=== PATIENT | male | born 1995 | race Caucasian/White ===

== ENCOUNTER 2016-11-13 15:13 | Emergency (ER) | payer OTHER ==
--- NOTE | 2016-11-13 15:59 | ED ---
General Adult HPI - General Chief complaint: Psychiatric Symptoms Stated complaint: Psych Time Seen by Provider: 11/13/16 15:43 Source: patient, RN notes reviewed Mode of arrival: ambulatory Limitations: no limitations - History of Present Illness Initial comments: Chief complaint and history of present illness a 21-year-old male who has been in [facility] months. He was sent in by community mental health practitioner with the petition because of bizarre behavior and statements. She didn't complete the petition for admission. He states that he is depressed and suicidal thoughtsa sheet around his neck was brought to jump off a railing when the [employer] guard stopped him. Patient reports depressed because his mother probably overdosed on heroin 2 months ago and his brother overdosed on heroin 3 days ago. He states he used to do heroin and methamphetamine but he wasn't on them. He states when he was younger used to see a psychiatrist but nothing since he was an adolescent. - Related Data Home Medications Medication Instructions Recorded Confirmed No Known Home Medications [No 11/13/16 11/13/16 Known Home Medications] Allergies Allergy/AdvReac Type Severity Reaction Status Date / Time No Known Allergies Allergy Verified 11/13/16 15:19 Review of Systems ROS Statement: Those systems with pertinent positive or pertinent negative responses have been documented in the HPI. Review of systems. Patient's denying any headache or visual acuity no chest pain shortness breath GI/ problems no neuro deficits. Patient states depressed suicidal plan would be to hang himself. All systems are reviewed. Past medical problems psychiatric treatment when he was young. Surgeries right hand fifth metacarpal for punching a wall. Family history uncle has stomach cancer. Both his mother and brother reportedly overdosed on heroin in the past 3 months his brother just 3 days ago both . Surgeries as noted above right fifth metacarpal after punching a wall. Patient denies ALLERGIES to smoke cigarettes or drink alcohol socially. ROS Other: All systems not noted in ROS Statement are negative. Past Medical History Past Medical History: No Reported History History of Any Multi-Drug Resistant Organisms: None Reported Past Surgical History: Orthopedic Surgery Past Psychological History: Depression Smoking Status: Current every day smoker Past Alcohol Use History: Occasional Past Drug Use History: Heroin, Marijuana, Methamphetamine General Exam - General Exam Comments Initial Comments: General: The patient is awake and alert, in no distress, and does not appear acutely ill. Brought emergency room handcuffed by sheriff lovell. Here because of depression. Time a sheet around his neck and was trying to jump off a railing when he was stopped. Depressed because he is both in [facility] and his mother 2 months ago from heroin overdose and his brother just 3 days ago from heroin overdose. Vital signs temp 98.4 pulse 86 respiratory rate 20 pulse ox on percent room air blood pressure 113/69 Eye: Pupils are equal, round and reactive to light, extra-ocular movements are intact ; there is normal conjunctiva bilaterally. No signs of icterus. Ears, nose, mouth and throat: There are moist mucous membranes and no oral lesions. Neck: The neck is supple, there is no tenderness . Cardiovascular: There is a regular rate and rhythm. No murmur, rub or gallop is appreciated. Respiratory: Lungs are clear to auscultation, respirations are non-labored, breath sounds are equal. No wheezes, stridor, rales, or rhonchi. Gastrointestinal: Soft, non-distended, non-tender abdomen without masses or organomegaly noted. There is no rebound or guarding present. No CVA tenderness. Bowel sounds are unremarkable. Back: There is no tenderness to palpation in the midline. There is no obvious deformity. No rashes noted. Musculoskeletal: Normal ROM, no tenderness, There is no pedal edema. There is no calf tenderness or swelling. Sensation intact. Pulses equal bilaterally 2+. Neurological: CN II-XII intact, There are no obvious motor or sensory deficits. Coordination appears grossly intact. Speech is normal. Skin: The patient has been in [facility] for 3 months, skin pale. Labs to be done Psychiatric: Cooperative, states he's depressed, suicidal, plan was to hang himself with a bed sheet in [facility]. Past history of depression. Had bizarre thoughts as recorded by [facility] mental health worker at the [facility]. Limitations: no limitations Course Vital Signs 11/13/16 15:16 Temperature 98.4 F Pulse Rate 86 Respiratory 20 Rate Blood Pressure 113/69 O2 Sat by Pulse 100 Oximetry Medical Decision Making - Medical Decision Making Medical decision making the patient's white count is 4.7 hemoglobin 15 hematocrit 42.9. Potassium is 5.0. BUN 22 creatinine 1.2 with a GFR greater than 60. Glucose 90. No other irregularities noted. The patient was evaluated at bedside by a psychiatrist. She placed the patient on sertraline and has written a decertification patient be taken back to the [facility] to be treated there and with continued psychiatric counseling at the [facility]. The patient be placed on suicide watch. - Lab Data Result diagrams: 11/13/16 16:27 11/13/16 16:27 Lab Results 11/13/16 11/13/16 Range/Units 16:27 16:27 WBC 4.7 (4.0-11.0) k/uL RBC 4.83 (4.30-5.90) m/uL Hgb 15.6 (13.0-17.5) gm/dL Hct 42.9 (39.0-53.0) % MCV 88.8 (80.0-100.0) fL MCH 32.3 (25.0-35.0) pg MCHC 36.4 (31.0-37.0) g/dL RDW 12.9 (11.5-15.5) % Plt Count 142 L (150-450) k/uL Neutrophils % 63 % Lymphocytes % 24 % Monocytes % 6 % Eosinophils % 5 % Basophils % 1 % Neutrophils # 3.0 (1.3-7.7) k/uL Lymphocytes # 1.1 (1.0-4.8) k/uL Monocytes # 0.3 (0-1.0) k/uL Eosinophils # 0.2 (0-0.7) k/uL Basophils # 0.0 (0-0.2) k/uL Sodium 144 (137-145) mmol/L Potassium 5.0 (3.5-5.1) mmol/L Chloride 103 (98-107) mmol/L Carbon Dioxide 29 (22-30) mmol/L Anion Gap 12 mmol/L BUN 22 H (9-20) mg/dL Creatinine 1.23 (0.66-1.25) mg/dL Est GFR (MDRD) Af Amer >60 (>60 ml/min/1.73 sqM) Est GFR (MDRD) Non-Af >60 (>60 ml/min/1.73 sqM) Glucose 90 (74-99) mg/dL Calcium 10.0 (8.4-10.2) mg/dL Disposition Clinical Impression: Depression, major Disposition: OTHER INSTITUTION NOT DEFINED Condition: Fair Instructions: Suicide Prevention for Adults (ED), Depression (ED) Additional Instructions: To be returned to [facility]. Take medications as prescribed by the psychiatrist. Continue counseling with the [facility] mental health professional. Time of Disposition: 16:51 - Out of Hospital Transfer - Req. Specs Out of Hospital Transfer - Requested Specifics: Other Non-Acute (Patient be returned to [facility] where he can be watched. Suicide precautions)
[2016-11-13 16:31] LABS: Basophils % (A) 1 %; CH 32.8; CHCM 37.2; Eosinophils # (A) 0.2 k/uL (0-0.7); Eosinophils % (A) 5 %; HCT 42.9 % (39.0-53.0); HDW 2.94; HGB 15.6 gm/dL (13.0-17.5); Luc # (Auto) 0.09; Luc % (Auto) 2; Lymphocytes # (A) 1.1 k/uL (1.0-4.8); Lymphocytes % (A) 24 %; MCH 32.3 pg (25.0-35.0); MCHC 36.4 g/dL (31.0-37.0); MCV 88.8 fL (80.0-100.0); Monocytes # (A) 0.3 k/uL (0-1.0); Monocytes % (A) 6 %; Neutrophils % (A) 63 %; RBC 4.83 m/uL (4.30-5.90); RDW 12.9 % (11.5-15.5); WBC 4.7 k/uL (4.0-11.0); WBC (Perox) 4.53
[2016-11-13 16:40] LABS: Anion Gap 12 mmol/L; Blood Urea Nitrogen 22 mg/dL (9-20); Carbon Dioxide 29 mmol/L (22-30); Chloride 103 mmol/L (98-107); Glucose 90 mg/dL (74-99); Non-African American GFR(MDRD) >60 (>60 ml/min/1.73 sqM); Sodium 144 mmol/L (137-145)
[2016-11-13 16:58] VITALS: BP 120/70; PULSE 68; RESP 16; TEMP 97.8
--- NOTE | 2016-11-13 20:57 | CONS ---
DATE OF CONSULTATION: 11/13/2016 Mayank Mishra: Patient was seen in the emergency room. HISTORY OF PRESENT ILLNESS: Patient is 21 year-old single male who has been in half-way for the last 3 months for probation violation. Patient was sent to the emergency room by Community Mental Health practitioner with petition, stated that the patient has been suspicious, paranoia, not sleeping at night, very odd and bizarre behavior and statement. He did try to hang himself with a sheet in the half-way. Patient stated that he lost his brother with overdose of heroin just couple of days ago; however, he has been depressed, prior to this. PAST PSYCHIATRIC HISTORY: There is one previous inpatient psychiatric hospitalization when he was [age] years of age and he was hospitalized for 4 weeks at [facility]. He was diagnosed with attention deficit disorder and oppositional defiant disorder. At that time he was on Intuntuitive. He stay on it for only a couple of months. He stated that he was thinking to cut his wrist at that time but since then there is no previous suicidal attempt until he did try hang himself in the half-way. Family history of psychiatric illness: Brother overdosed on heroin. Father was alcoholic. Substance abuse history: He stated that he did try marijuana, methamphetamine, heroin, cocaine, Adderall and he was in substance abuse program at age 17. Legal problems: Multiple legal problems between breaking and entry, breaking probation. Currently he has to stay in half-way until the end of February. MENTAL STATUS EXAMINATION: Patient was wearing half-way uniform. He was very pleasant, cooperative. He gives good eye contact. He denied any current suicidal or homicide ideation. He stated that he needs to get better because he has 2 brothers and wants to live for them. He denied any auditory or visual hallucination. However, he stated that he is having some paranoia and suspicious especially it was the half-way food ( ). We discussed in detail with his compliance with [facility] treatment and patient is willing to be involved in [facility] treatment, even he did agree to start medication as he said, "Especially if what you give me would help me to sleep." IMPRESSION: Major depression with psychotic features versus bipolar disorder, depressed with psychotic feature. RECOMMENDATION: As the patient is not suicidal or homicidal, I did not see any violent or aggressive behavior for at least half an hour or more during my interview with him in the emergency room. I do not feel that he does not meet criteria for inpatient psychiatric hospitalization but I do recommend alternative treatment to be involved in [facility] counseling and medication review. He was given prescription for Seroquel 300 mg at bedtime to eliminate all the paranoia and suspicious feeling and also it will stabilize his mood.
== END 2016-11-13 16:58 | disposition other institution (70) ==
LOC: EC 15:13
DX: F32.9 Major depressive disorder, single episode, unspecified (principal); F17.200 Nicotine dependence, unspecified, uncomplicated
CPT/HCPCS: 36415; 80048; 82075; 85025; 99284

== ENCOUNTER 2019-06-06 13:00 | Inpatient (IN) | payer MEDICAID ==
[2019-06-06] MEDS ORDERED: ACETAMINOPHEN TAB 325 MG TAB PO PRN (13:21)
[2019-06-06] MEDS ORDERED: ZIPRASIDONE 20 MG VIAL IM PRN (13:21)
[2019-06-06] MEDS ORDERED: MAGNESIUM HYDROXIDE 2,400 MG/10 ML CUP PO PRN (13:21)
[2019-06-06] MEDS ORDERED: LORazepam 1 MG TAB PO PRN (13:21)
[2019-06-06] MEDS ORDERED: MAG HYDROX/AL HYDROX/SIMETH 30 ML CUP PO PRN (13:21)
[2019-06-06] MEDS ORDERED: LORazepam 2 MG/ML INJ IM PRN (13:24)
[2019-06-06] MEDS ORDERED: PALIPERIDONE IM 234 MG/1.5 ML SYG IM STA (13:27)
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
[2019-06-06] MEDS ORDERED: PALIPERIDONE IM 156 MG/ML SYG IM STA (14:34)
[2019-06-06] MEDS: NICOTINE 14MG/24HR PATCH TRANSDERM SCH ×2 (14:44→14:52)
--- NOTE | 2019-06-06 17:00 | P.PN ---
Progress Note - Text Progress Note Date: 06/06/19 Attempted to see patient in the MHU. The patient noted that he does not wish to talk to anyone at this time. He refused to answer any questions and refused to be examined.
[2019-06-06] MEDS: QUEtiapine 200 MG TAB PO SCH ×2 (21:00→21:18)
[2019-06-07 08:50] LABS: Basophils % (A) 0 %; Eosinophils # (A) 0.3 k/uL (0-0.7); Eosinophils % (A) 4 %; HCT 45.8 % (39.0-53.0); HGB 16.1 gm/dL (13.0-17.5); Lymphocytes # (A) 1.2 k/uL (1.0-4.8); Lymphocytes % (A) 16 %; MCH 31.8 pg (25.0-35.0); MCHC 35.1 g/dL (31.0-37.0); MCV 90.5 fL (80.0-100.0); Mean Platelet Volume 5.4; Monocytes # (A) 0.4 k/uL (0-1.0); Monocytes % (A) 5 %; Neutrophils # (A) 5.4 k/uL (1.3-7.7); Neutrophils % (A) 73 %; Platelet Count 199 k/uL (150-450); RBC 5.06 m/uL (4.30-5.90); RDW 12.3 % (11.5-15.5); WBC 7.4 k/uL (3.8-10.6)
[2019-06-07] MEDS: NICOTINE 14MG/24HR PATCH TRANSDERM SCH (09:07)
[2019-06-07 09:12] LABS: Albumin 4.3 g/dL (3.5-5.0); Calcium 9.8 mg/dL (8.4-10.2); Potassium 4.2 mmol/L (3.5-5.1); Total Bilirubin 0.7 mg/dL (0.2-1.3); Total Protein 6.9 g/dL (6.3-8.2)
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
[2019-06-07 18:01] LABS: Hemoglobin A1C 4.3 % (4.0-6.0)
[2019-06-07] MEDS: QUEtiapine 200 MG TAB PO SCH (22:21)
[2019-06-08] MEDS: NICOTINE 14MG/24HR PATCH TRANSDERM SCH (11:05)
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
--- NOTE | 2019-06-08 17:32 | P.CONS ---
History of Present Illness - Reason for Consult Consult date: 06/08/19 - History of Present Illness Patient is a 24-year-old male with a PMH of paranoid schizophrenia who presented to the ED after his family petitioned him due to strange behavior. The patient was admitted to the MHU for psychosis. The patient was seen in the MHU on 06/08 after he refused initial examination on 06/06. He noted no additional PMH and notes that he does not take any medications at home. He states a history of tobacco abuse which he has since quit. He denied any illicit substance use. Denied any additional complaints including chest pain, SOB, fever, chills, nausea, or vomiting. Review of Systems Pertinent positives and negatives as discussed in HPI, a complete review of systems was performed and all other systems are negative. Past Medical History Past Medical History: No Reported History History of Any Multi-Drug Resistant Organisms: None Reported Past Surgical History: Orthopedic Surgery Past Psychological History: Depression Smoking Status: Current every day smoker Past Alcohol Use History: Occasional Past Drug Use History: Heroin, Marijuana, Methamphetamine Medications and Allergies Home Medications Medication Instructions Recorded Confirmed Type Paliperidone IM [Invega Sustenna] 156 mg IM Q28D 06/06/19 06/06/19 History QUEtiapine [SEROquel] 200 mg PO HS 06/06/19 06/06/19 History Allergies Allergy/AdvReac Type Severity Reaction Status Date / Time No Known Allergies Allergy Verified 06/06/19 14:01 Physical Exam Vitals: Vital Signs Temp Pulse Resp BP 06/08/19 07:12 97.9 F 96 14 107/60 General: non toxic, no distress, appears at stated age, normal weight Derm: no unusual rashes/lesions no unusual ecchymoses, warm, dry Head: atraumatic, normocephalic, symmetric Eyes: EOMI, no lid lag, anicteric sclera, pupils equal round reactive to light ENT: Nose and ears atraumatic, no thrush, no pharyngeal erythema Neck: No thyromegaly, no cervical lymphadenopathy, trachea midline, supple Mouth: no lip lesion, mucus membranes moist Cardiovascular: S1S2 reg, no murmur, positive posterior tibial pulse bilateral, no edema, capillary refill less than 2 seconds Lungs: CTA bilateral, no rhonchi, no rales , no accessory muscle use Abdominal: soft, nontender to palpation, no guarding, no appreciable organomegaly, normal bowel sounds Ext: no gross muscle atrophy, muscle strength 5 out of 5 in all 4 extremities grossly, no contractures, Neuro: CN II-XI grossly intact, light touch intact all 4 extremities, finger to nose within normal limits, Psych: Alert, oriented, appropriate affect Results CBC & Chem 7: 06/07/19 08:20 06/07/19 08:20 Assessment and Plan Plan: DARÍO vs CKD -Obtain repeat BMP for am -Encourage PO fluid intake Low TSH -Obtain T4 and T3 levels Tobacco abuse -Advised on importance of cessation Psychosis -As per psychiatry Thank you for allowing us to participate in the care of this patient. We will follow peripherally. Do not hesitate to contact us with questions. Someone can be reached from the [facility] hospitalist group at all hours of the day at [phone].
[2019-06-08] MEDS: QUEtiapine 200 MG TAB PO SCH (21:45)
[2019-06-09 05:58] LABS: T4, Free (Free Thyroxine) 1.2 ng/dL (0.78-2.19)
[2019-06-09] MEDS: NICOTINE 14MG/24HR PATCH TRANSDERM SCH (09:05)
[2019-06-09 09:55] LABS: African American GFR (CKD) >90 (>60 ml/min/1.73 sqM); Anion Gap 9 mmol/L; Blood Urea Nitrogen 17 mg/dL (9-20); Calcium 9.3 mg/dL (8.4-10.2); Carbon Dioxide 26 mmol/L (22-30); Chloride 106 mmol/L (98-107); Glucose 124 mg/dL (74-99); Non-African American GFR(CKD) 85 (>60 ml/min/1.73 sqM); Potassium 4.1 mmol/L (3.5-5.1); Sodium 141 mmol/L (137-145)
--- NOTE | 2019-06-09 14:10 | P.PN ---
Progress Note - Text Progress Note Date: 06/09/19 Clinical Problems: Psychotic disorder most likely chronic schizophrenia with acute exacerbation, rule out bipolar illness, rule out schizoaffective disorder Interim history: I reviewed the medical record and attempted to interview the patient. Appreciate the medical consult. He was more open to talk to me that during prior contacts. He declined to come into my office for the interview. He states that he has no recollection of the events that brought him in hospital and does not understand the reason for this admission. He does not want to take Seroquel but expressed a willingness to continue with the injections of Invega. Staff reports that he appears to be responding to internal stimuli. He continues to refuse Seroquel 200 mg at bedtime. He participated in one therapeutic groups yesterday. Otherwise, he comes out of his room for meals. Mental status exam: He presented as a tall somewhat disheveled appearing male who looked his stated age. He made eye contact and appeared to attend to my attempts to engage him. He had no prominent physical abnormalities or distinguishing features. He showed psychomotor retardation but no abnormal movements. Her speech was not spontaneous. He showed poverty of speech and content speech.. His affect was blunted and He did not express suicidal or homicidal ideation. He was guarded and suspicious. He did not express ideas reference, clear paranoid ideation, magical ideation or paranoid delusional thoughts. His thinking was concrete and associations were not logical. He denied hallucinations and did not appear to be responding to internal stimuli during our encounter. Assessment: He continues to have signs and symptoms acute psychosis that have improved minimally since admission to the hospital. He is refusing oral antipsychotic medications. Awaiting the probate hearing. Plan: Continue to encourage participation in therapeutic groups and activities. Continue safety precautions. Encourage take prescribed antipsychotic medications. With his consent, administer another injection of Invega sustenna later this week. Obtain copies of the mental health progress notes and assessments. Evaluate clinical status response to treatment daily basis.
[2019-06-09] MEDS: QUEtiapine 200 MG TAB PO SCH (21:12)
[2019-06-10] MEDS: NICOTINE 14MG/24HR PATCH TRANSDERM SCH (09:34)
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
[2019-06-10] MEDS: QUEtiapine 200 MG TAB PO SCH (20:33)
[2019-06-11] MEDS: NICOTINE 14MG/24HR PATCH TRANSDERM SCH (07:59)
[2019-06-11] MEDS ORDERED: PALIPERIDONE IM 234 MG/1.5 ML SYG IM ONE (09:00)
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
[2019-06-11] MEDS: QUEtiapine 200 MG TAB PO SCH (20:28)
[2019-06-12] MEDS: NICOTINE 14MG/24HR PATCH TRANSDERM SCH (08:11)
--- NOTE | 2019-06-12 19:09 | P.PN ---
Progress Note - Text Progress Note Date: 06/12/19 IDENTIFICATION DATA: 24-year-old single male patient admitted to U involuntarily with bizarre behavior INTERVAL HISTORY: He reports feeling good. He states his medications are helping him to sleep well. He reports good appetite. He says he likes going to all his groups. No side effects from medications. MENTAL STATUS EXAMINATION: 24 year old male. Appears stated age in marginal grooming and fair hygiene. speech and thought process are goal directed. mood is reported as pretty good and affect constricted. denies current auditory hallucinations and visual hallucinations. Denies paranoid ideations. Denies suicidal and homicidal ideations. is alert and oriented x 4. insight and judgement are improving. Assessment Unspecified psychotic disorder rule out schizophrenia PLAN: Continue Seroquel 200 mg at bedtime INVEGA SUSTENNA 156 mg IM q 30 days
[2019-06-12] MEDS: QUEtiapine 200 MG TAB PO SCH (21:25)
[2019-06-13] MEDS: NICOTINE 14MG/24HR PATCH TRANSDERM SCH (08:08)
--- NOTE | 2019-06-13 17:17 | P.PN ---
Progress Note - Text Progress Note Date: 06/13/19 IDENTIFICATION DATA: 24-year-old single male patient admitted to U involuntarily with bizarre behavior INTERVAL HISTORY: He reports getting along with his peers and staff. No behavioral problems reported. He reports thinking a lot which doesnt bother him and is able to concnetrate well . He says his medications are helping him. He reports good sleep and appetite. He reports going to all his groups. No side effects from medications. MENTAL STATUS EXAMINATION: 24 year old male. Appears stated age in marginal grooming and fair hygiene. speech and thought process are goal directed. mood is reported as good and affect constricted. denies current auditory hallucinations and visual hallucinations. Denies paranoid ideations. Denies suicidal and homicidal ideations. is alert and oriented x 4. insight and judgement are improving. Assessment Unspecified psychotic disorder rule out schizophrenia PLAN: Continue Seroquel 200 mg at bedtime INVEGA SUSTENNA 156 mg IM q 30 days
[2019-06-13] MEDS: QUEtiapine 200 MG TAB PO SCH (21:24)
[2019-06-14] MEDS: NICOTINE 14MG/24HR PATCH TRANSDERM SCH (09:32)
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
[2019-06-14] MEDS ORDERED: PALIPERIDONE 6 MG TAB.ER.24 PO SCH (21:00)
[2019-06-15] MEDS: NICOTINE 14MG/24HR PATCH TRANSDERM SCH (09:22)
[2019-06-15] MEDS: PALIPERIDONE 6 MG TAB.ER.24 PO SCH (12:34)
--- NOTE | 2019-06-15 12:56 | P.PN ---
Progress Note - Text Progress Note Date: 06/15/19 Chief complaint: "I am fine " Subjective: The patient has been seen today as follow-up, chart reviewed, case discussed with the treatment team. Patient reports good sleep last night. Patient has not been going to any groups and other unit activities. Patient reports fair appetite. Patient presents some degree paranoid and guarded, but he denies feeling depressed, hopeless, or suicidal. He denies any anxiety symptoms and denies mood swings, severe agitation, or anger problems. He denies any auditory or visual hallucinations and denies paranoid ideation. Patient reports taking his medications and he denies any side affects. According to the nursing staff, the patient refused to take oral Invega, but he received 2 injections of Mauricio was last at was 156 mg was yesterday. Objective: Vitals has been reviewed. Mental status examination: Appearance: The patient appears stated age, poorly groomed and dressed, no specific features. Gait/posture: Normal gait, Normal arm swinging: No abnormal movements. Attitude and behavior: engaged, superficially cooperative, eye contact. Motor activity: Decreased psychomotor activity Speech: Normal rate, tone. Mood: Anxious Affect: Constricted Thought form: goal-directed, linear, coherent. Thought content: Non-delusional, denies suicidal thoughts, denies homicidal thoughts, denies intentions or plans. Perception: Denies any auditory or visual hallucinations Attention: No impairment. Patient was able to repeat serial 5. Orientation: Patient patient was fully oriented to time place person and situation. Insight: Patient has fair insight about his psychiatric disorder. Judgment: Patient has fair judgment about his psychiatric treatment. Assessment: Unspecified psychotic disorder. Rule out schizophrenia. Plan: Continue inpatient level of care due to need for further stabilization on medications Continue treatment of psychotic disorder provide psychiatric education regarding about his diagnosis Precautions: Continue 15 minutes check for safety. Consider medical consultation if any acute medical issues arise. Provide the patient individual, group therapy, substance use disorder counseling to give better insight and learn coping skills. Continue follow-up with the patient daily to monitor progress of psychotic symptoms. Medications: Continue Invega 6 mg by mouth daily for psychotic symptoms. As per nursing, the patient received 2 doses of Invega Sustenna with first dose was last week and 2nd dose 156 mg yesterday for psychotic symptoms Discharge patient to OUTPATIENT services upon a stabilization Prognosis: Some improvement Expected LOS: 3-5 days
[2019-06-16] MEDS: PALIPERIDONE 6 MG TAB.ER.24 PO SCH (09:10)
[2019-06-16] MEDS: NICOTINE 14MG/24HR PATCH TRANSDERM SCH (09:11)
--- NOTE | 2019-06-16 12:18 | P.PN ---
Progress Note - Text Progress Note Date: 06/16/19 Chief complaint: "I feel better today " Subjective: The patient has been seen today as follow-up, chart reviewed, case discussed with the treatment team. Patient slept about 7-8 hours last night. Patient has been going to selected groups and other unit activities. Patient reports fair appetite. Patient reports feeling stable emotionally and denies feeling depressed, hopeless, or suicidal. He denies any severe mood swings, irritable mood, or agitation. Patient presents to some degree guarded and isolated himself in the room for most of the time. The patient is compliant with his medications and denies any adverse reactions, and he is currently taking oral Invega as prescribed. Patient signed by deferral paper to continue outpatient psychiatric treatment after discharge The patient denies any manic symptoms including sustained period of time with elevated or irritable mood, impulsive or irrational behavior. The patient denies any auditory or visual hallucinations. Also the patient denies any paranoid ideation. Objective: Vitals has been reviewed. Mental status examination: Appearance: The patient appears stated age, poorly groomed and dressed, no specific features. Gait/posture: Normal gait, Normal arm swinging: No abnormal movements. Attitude and behavior: engaged, superficially cooperative, eye contact. Motor activity: Decreased psychomotor activity Speech: Normal rate, tone. Mood: Anxious Affect: Constricted Thought form: goal-directed, linear, coherent. Thought content: Non-delusional, denies suicidal thoughts, denies homicidal thoughts, denies intentions or plans. Perception: Denies any auditory or visual hallucinations Attention: No impairment. Patient was able to repeat serial 5. Orientation: Patient patient was fully oriented to time place person and situation. Insight: Patient has fair insight about his psychiatric disorder. Judgment: Patient has fair judgment about his psychiatric treatment. Assessment: Unspecified psychotic disorder. Rule out schizophrenia. Plan: Continue inpatient level of care due to need for further stabilization on medications Continue treatment of psychotic disorder provide psychiatric education regarding about his diagnosis Precautions: Continue 15 minutes check for safety. Consider medical consultation if any acute medical issues arise. Provide the patient individual, group therapy, substance use disorder counseling to give better insight and learn coping skills. Continue follow-up with the patient daily to monitor progress of psychotic symptoms. Medications: Continue Invega 6 mg by mouth daily for psychotic symptoms. As per nursing, the patient received 2 doses of Invega Sustenna with first dose was last week and 2nd dose 156 mg yesterday for psychotic symptoms Discharge patient to OUTPATIENT services upon a stabilization Prognosis: Some improvement Expected LOS: 2-3 days
[2019-06-17] MEDS: NICOTINE 14MG/24HR PATCH TRANSDERM SCH (09:03)
[2019-06-17] MEDS: PALIPERIDONE 6 MG TAB.ER.24 PO SCH (09:03)
--- NOTE | 2019-06-17 14:29 | P.PN ---
Progress Note - Text Progress Note Date: 06/17/19 Chief complaint: "I don't want to talk to anybody " Subjective: The patient has been seen today as follow-up, chart reviewed, case discussed with the treatment team. Patient refused to be evaluated and was very guarded and isolated in his room. Patient didn't attend groups today and was very limited regarding interaction with others. As per nursing report, the patient continued to take his medications and he denies side effects. Objective: Vitals has been reviewed. Mental status examination: Appearance: The patient appears stated age, poorly groomed and dressed, no specific features. Gait/posture: Normal gait, Normal arm swinging: No abnormal movements. Attitude and behavior: Not engaged, not cooperative, eye contact. Motor activity: Decreased psychomotor activity Speech: Normal rate, tone. Mood: Anxious Affect: Constricted Thought form: goal-directed, linear, coherent. Thought content: Non-delusional, denies suicidal thoughts, denies homicidal thoughts, denies intentions or plans. Patient was very isolated and guarded Perception: Denies any auditory or visual hallucinations Attention: Patient was not cooperative with assessment. Orientation: Patient was not cooperative was evaluation Insight: Patient has poor insight about his psychiatric disorder. Judgment: Patient has poor judgment about his psychiatric treatment. Assessment: Unspecified psychotic disorder. Rule out schizophrenia. Plan: Continue inpatient level of care due to need for further stabilization on medications Continue treatment of psychotic disorder provide psychiatric education regarding about his diagnosis Precautions: Continue 15 minutes check for safety. Consider medical consultation if any acute medical issues arise. Provide the patient individual, group therapy, substance use disorder counseling to give better insight and learn coping skills. Continue follow-up with the patient daily to monitor progress of psychotic symptoms. Medications: Continue Invega 6 mg by mouth daily for psychotic symptoms. As per nursing, the patient received 2 doses of Invega Sustenna with first dose was last week and 2nd dose 156 mg yesterday for psychotic symptoms Discharge patient to OUTPATIENT services upon a stabilization Prognosis: Deterioration of symptoms with more isolation, guarded, and probably paranoid. Expected LOS: 5-7 days
[2019-06-18] MEDS: PALIPERIDONE 6 MG TAB.ER.24 PO SCH (08:34)
[2019-06-18] MEDS: NICOTINE 14MG/24HR PATCH TRANSDERM SCH (08:34)
--- NOTE | 2019-06-18 13:57 | P.PN ---
Progress Note - Text Progress Note Date: 06/18/19 Chief complaint: "I am fine " Subjective: The patient has been seen today as follow-up, chart reviewed, case discussed with the treatment team. Patient reports" good" sleep last night. Patient has not been going to any groups and other unit activities. Patient reports fair appetite. And continued to be isolated and has minimal interactions with others. He presented very guarded and superficial in his answers for evaluation questions. He denies feeling depressed and he denies suicidal or homicidal ideation. He denies paranoid ideation and denies any auditory or visual hallucinations. The patient has been taking his psychiatric medication and he denies any side effects. As per unit staff, patient refused to sign deferral paper and he is scheduled for court next Friday. Objective: Vitals has been reviewed. Mental status examination: Appearance: The patient appears stated age, poorly groomed and dressed, no specific features. Gait/posture: Normal gait, Normal arm swinging: No abnormal movements. Attitude and behavior: Not engaged, not cooperative, poor eye contact. Motor activity: Decreased psychomotor activity Speech: Normal rate, tone. Mood: Anxious Affect: Constricted Thought form: Very restricted. Thought content: Paranoid, denies suicidal thoughts, denies homicidal thoughts, denies intentions or plans. Patient is very isolated and guarded Perception: Denies any auditory or visual hallucinations Attention: Patient was not cooperative with assessment. Orientation: Patient was not cooperative was evaluation Insight: Patient has poor insight about his psychiatric disorder. Judgment: Patient has poor judgment about his psychiatric treatment. Assessment: Unspecified psychotic disorder. Rule out schizophrenia. Plan: Continue inpatient level of care due to need for further stabilization on medications Continue treatment of psychotic disorder provide psychiatric education regarding about his diagnosis Precautions: Continue 15 minutes check for safety. Consider medical consultation if any acute medical issues arise. Provide the patient individual, group therapy, substance use disorder counseling to give better insight and learn coping skills. Continue follow-up with the patient daily to monitor progress of psychotic symptoms. Medications: Continue Invega 6 mg by mouth daily for psychotic symptoms. As per nursing, the patient received 2 doses of Invega Sustenna with first dose was last week and 2nd dose 156 mg Wednesday 06/13 for psychotic symptoms Discharge patient to OUTPATIENT services upon a stabilization Prognosis: Deterioration of symptoms with more isolation, guarded, and probably paranoid. Expected LOS: 5-7 days
[2019-06-19] MEDS: PALIPERIDONE 6 MG TAB.ER.24 PO SCH (09:31)
[2019-06-19] MEDS: NICOTINE 14MG/24HR PATCH TRANSDERM SCH (09:32)
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
[2019-06-20] MEDS: PALIPERIDONE 6 MG TAB.ER.24 PO SCH (09:33)
[2019-06-20] MEDS: NICOTINE 14MG/24HR PATCH TRANSDERM SCH (09:33)
--- NOTE | 2019-06-20 14:57 | P.PN ---
Progress Note - Text Interval history: The patient is found in his room he refuses to follow me to an interview room. He states he does not wish to answer any questions. Staff recorded he slept 7 hours. He does indicate that he ate breakfast and lunch. He has not yet showered and he has no intention to do so. It appears that he did comply with the invega. Mental status exam: The patient's is lying in bed he is covered with a blanket. He is a disheveled appearance eye contact is intermittent. He refuses to get up for an interview. He quickly denies having any suicidal or homicidal thoughts he denies having any auditory or visual hallucinations or any specific delusions. Obviously he is underreporting. Insight and judgment impaired. He is partially cooperative for this interaction. Plan: The patient will continue on his current psychotropic medication. We will monitor him for safety and encourage some participation in the milieu. Vital signs reviewed.
[2019-06-21] MEDS: NICOTINE 14MG/24HR PATCH TRANSDERM SCH (08:42)
[2019-06-21] MEDS: PALIPERIDONE 6 MG TAB.ER.24 PO SCH (08:43)
--- NOTE | 2019-06-21 15:51 | P.PN ---
Progress Note - Text Progress Note Date: 06/21/19 Clinical Problems: Schizoaffective disorder unspecified Interim history: I reviewed the medical record, interviewed the patient and discussed his treatment and treatment plan during team meeting. His probate hearing was postponed last week and is rescheduled for this Friday. He remains seclusive and force involvement with social activities for therapeutic groups. He began to take Invega 6 mg daily last week. He denied side effects since beginning the Maria Stein oral dose. He denied problems or concerns. He specifically denied experiencing auditory, visual or olfactory hallucinations. He denied ideas reference, thought insertion, thought broadcasting or thought control. Nursing staff denied that they have recently observed him appearing as though he were responding to internal stimuli. Mental status exam: He presented as a tall, thin 24-year-old male who set up an interest. For the interview but would not come in to my exam room. He made eye contact and appeared to attend to interview. He had a flat facial expression. He showed psychomotor retardation but no abnormal movements. His speech was not spontaneous and had decreased rate and volume. His affect was flat and unreactive. He denied suicidal ideation or wishes. He denied homicidal ideation. He did not express ideas reference, paranoid ideation or delusional thoughts. His thinking was concrete and he demonstrated such poverty of speech that I cannot fully evaluate his associations. He denied hallucinations and did not appear to be responding to internal stimuli Assessment: He is more compliant with oral psychotropic medications on admission but continues demonstrate marked negative symptoms of his chronic psychiatric illness. Plan: Completed the second clinical served. Continue psychiatric hospitalization. 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 Continue Invega 6 mg daily, encourage participation in therapeutic groups and activities as tolerated. Evaluate clinical status response to treatment daily basis.
[2019-06-22] MEDS: PALIPERIDONE 6 MG TAB.ER.24 PO SCH (09:41)
[2019-06-22] MEDS: NICOTINE 14MG/24HR PATCH TRANSDERM SCH (09:41)
--- NOTE | 2019-06-22 15:56 | P.PN ---
Progress Note - Text Progress Note Date: 06/22/19 Clinical Problems: Schizoaffective disorder unspecified Interim history: I reviewed the medical record, interviewed the patient and discussed his treatment and treatment plan during team meeting. He remains seclusive and uninvolved with social activities and therapeutic groups. He remains compliant with oral Invega 6 mg daily. He He would not get out of bed to speak with me. He specifically denied experiencing auditory, visual or olfactory hallucinations. He denied ideas reference, thought insertion, thought broadcasting or thought control. Nursing staff denied that they have recently observed him appearing as though he were responding to internal stimuli. Mental status exam: He presented as a tall, thin 24-year-old male who was minimally cooperative. He made eye contact and appeared to attend to interview. He had a flat facial expression. He showed psychomotor retardation but no abnormal movements. His speech was not spontaneous and had decreased rate and volume. His affect was flat and unreactive. He denied suicidal ideation or wishes. He denied homicidal ideation. He did not express ideas reference, paranoid ideation or delusional thoughts. His thinking was concrete and he demonstrated such poverty of speech that I cannot fully evaluate his associations. He denied hallucinations and did not appear to be responding to internal stimuli Assessment: He is compliant with oral psychotropic medications but continues demonstrate marked negative symptoms of his chronic psychiatric illness. Plan: Continue psychiatric hospitalization. 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 Continue Invega 6 mg daily, encourage participation in therapeutic groups and activities as tolerated. Evaluate clinical status response to treatment daily basis.
[2019-06-23] MEDS: PALIPERIDONE 6 MG TAB.ER.24 PO SCH (08:23)
--- NOTE | 2019-06-23 15:33 | P.PN ---
Progress Note - Text Progress Note Date: 06/23/19 Clinical Problems: Schizoaffective disorder unspecified Interim history: I reviewed the medical record, interviewed the patient and discussed his treatment and treatment plan during team meeting. He had a probate hearing today during which we requested to continue inpatient hospitalization until placement in a structured community program. As during prior encounters he would not get out of bed and participated intermittently in the interview. He remains compliant with oral Invega 6 mg daily. Mental status exam: He presented as a tall, thin 24-year-old male who was minimally cooperative. He made eye contact and appeared to attend to interview. He had a flat facial expression. He showed psychomotor retardation but no abnormal movements. His speech was not spontaneous and had decreased rate and volume. His affect was flat and unreactive. He denied suicidal ideation or wishes. He denied homicidal ideation. He did not express ideas reference, paranoid ideation or delusional thoughts. His thinking was concrete and he demonstrated such poverty of speech that I cannot fully evaluate his associations. He denied hallucinations and did not appear to be responding to internal stimuli Assessment: He is compliant with oral psychotropic medications but continues demonstrate marked negative symptoms of his chronic psychiatric illness. Plan: Continue psychiatric hospitalization. 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 Continue Invega 6 mg daily, encourage participation in therapeutic groups and activities as tolerated. Evaluate clinical status response to treatment daily basis.
[2019-06-24] MEDS: PALIPERIDONE 6 MG TAB.ER.24 PO SCH (08:55)
--- NOTE | 2019-06-24 12:53 | P.PN ---
Progress Note - Text Progress Note Date: 06/24/19 Clinical Problems: Schizoaffective disorder unspecified Interim history: I reviewed the medical record, interviewed the patient and discussed his treatment and treatment plan during team meeting. He was laying in bed and wouldn't get out of bed for the interview. He told me that he didn't want to talk to me. I explained that our plan is to discharge him as soon as we mental health is able to secure a residence. He appeared attentive and interested. He remains compliant with oral Invega 6 mg daily. Mental status exam: He presented as a tall, thin 24-year-old male who was minimally cooperative. He made eye contact and appeared to attend to interview. He had a flat facial expression. He showed psychomotor retardation but no abnormal movements. His speech was not spontaneous and had decreased rate and volume. His affect was flat and unreactive. He did not express reid icidal ideations, wishes or homicidal ideation. He did not express ideas reference, paranoid ideation or delusional thoughts. His thinking was concrete and he demonstrated such poverty of speech that I cannot fully evaluate his associations. He denied hallucinations and did not appear to be responding to internal stimuli Assessment: He is compliant with oral psychotropic medications but continues demonstrate marked negative symptoms of his chronic psychiatric illness. Plan: Continue psychiatric hospitalization. 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 Continue Invega 6 mg daily, encourage participation in therapeutic groups and activities as tolerated. Evaluate clinical status response to treatment daily basis.
[2019-06-25] MEDS: PALIPERIDONE 6 MG TAB.ER.24 PO SCH (07:53)
[2019-06-25 14:14] VITALS: BMI 23.5
--- NOTE | 2019-06-25 14:56 | P.PN ---
Progress Note - Text Progress Note Date: 06/25/19 Clinical Problems: Schizoaffective disorder unspecified Interim history: I reviewed the medical record, interviewed the patient and discussed his treatment and treatment plan during team meeting. He was laying in bed but sat up and spoke with me. However, he would not come into my office. Unlike yesterday he let me to turn the lights on in his room. I informed him that [facility] may have found a residence for him and he may be discharged Friday or Friday. He remains compliant with oral Invega 6 mg daily. Mental status exam: He presented as a tall, thin 24-year-old male who was minimally cooperative. He made eye contact and appeared to attend to intervi ew. He had a flat facial expression. He showed psychomotor retardation but no abnormal movements. His speech was not spontaneous and had decreased rate and volume. His affect was flat and unreactive. He did not express suicidal ideations, wishes or homicidal ideation. He was guarded and suspicious but did not express ideas reference, paranoid ideation or delusional thoughts. His thinking was concrete and he demonstrated such poverty of speech that I cannot fully evaluate his associations. He denied hallucinations and did not appear to be responding to internal stimuli Assessment: He is compliant with oral psychotropic medications but continues demonstrate marked negative symptoms of his chronic psychiatric illness. Plan: Continue psychiatric hospitalization. 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 Continue Invega 6 mg daily, encourage participation in therapeutic groups and activities as tolerated. Evaluate clinical status response to treatment daily basis.
[2019-06-26] MEDS: PALIPERIDONE 6 MG TAB.ER.24 PO SCH (08:41)
--- NOTE | 2019-06-26 11:28 | P.PN ---
Progress Note - Text Progress Note Date: 06/26/19 Interval history: Patient was seen wandering the hallways and was agreeable speak to staff writer. Patient appears to have disheveled appearance however was calm and appropriate during conversation. Patient was concrete in his thought process and gave few details. He denies any complaints at this time claimed that he slept well last night approximately 8 hours. He states that he isn't taking his medications and when asked what it helps him with the states "you know my mental illness". Patient claims that he's been eating well and has not been attending groups. At this time patient denies any suicidal or homicidal ideations intent or plan. Denies any Auditory or visual hallucinations. Patient denies any side effects from the medications and has been compliant with meds. Mental status exam: General Appearance: Patient appears to be older than stated age is alert, and directable. Poor hygiene and grooming. Behavior: No agitated behavior. Patient is calm and directable Speech: Patient's speech is fluent and nonpressured. Soft tone. Mood/Affect: Mood is improving, affect is congruent and constricted. Suicidality/Homicidality: Patient denies having any suicidal or homicidal ideation intent or plan. Perceptions: Patient denies any auditory or visual hallucinations. Though content/process: There is no evidence of any delusional thought content and thought process is concrete and guarded. Memory and concentration: AOX3, grossly intact for the purposes of this session Judgment and insight: improving Assessment/Plan: Continue with current diagnosis. Patient continues to meet criteria for inpatient psychiatric admission for symptom stabilization and safety.Patient will be maintained on current psychotropic medication regimen. Monitor for medication compliance and for any psychotropic medication side effects. Will continue to monitor ongoing response to treatment.
[2019-06-27] MEDS: PALIPERIDONE 6 MG TAB.ER.24 PO SCH (09:14)
--- NOTE | 2019-06-27 12:04 | P.PN ---
Progress Note - Text Progress Note Date: 06/27/19 Interval history: Patient was seen in his room and was agreeable speak to greeting card writer. Patient did not want to get out of bed this morning however does state that he comes out of his room from time to time. Patient appears to have disheveled appearance however did state that he has been showering. Patient was encouraged to shower today in the afternoon. Patient was appropriate during conversation. Patient was concrete in his thought process and gave few details however offered no overnight complaints. He states that he slept well last night approximately 7-8 hours. He states that he is taking his medications and states that it is helping him however gives superficial answers. Patient claims that he's been eating well and has not been attending groups. At this time patient denies any suicidal or homicidal ideations intent or plan. Denies any Auditory or visual hallucinations. Patient denies any side effects from the medications and has been compliant with meds. Mental status exam: General Appearance: Patient appears to be older than stated age is alert, and directable. Poor hygiene and grooming. Behavior: No agitated behavior. Patient is calm and directable Speech: Patient's speech is fluent and nonpressured. Mood/Affect: Mood is improving, affect is congruent and constricted. Suicidality/Homicidality: Patient denies having any suicidal or homicidal ideation intent or plan. Perceptions: Patient denies any auditory or visual hallucinations. Though content/process: There is no evidence of any delusional thought content and thought process is concrete and guarded. Memory and concentration: AOX3, grossly intact for the purposes of this session Judgment and insight: improving Assessment/Plan: Continue with current diagnosis. Patient continues to meet criteria for inpatient psychiatric admission for symptom stabilization and safety. Patient will be maintained on current psychotropic medication regimen. Monitor for medication compliance and for any psychotropic medication side effects. Will continue to monitor ongoing response to treatment.
[2019-06-28 07:07] VITALS: RESP 14
[2019-06-28] MEDS: PALIPERIDONE 6 MG TAB.ER.24 PO SCH (08:17)
--- NOTE | 2019-06-28 15:10 | P.PN ---
Progress Note - Text Progress Note Date: 06/28/19 Chief complaint: "I don't want to talk to anybody today " Subjective: The patient has been seen today as follow-up, chart reviewed, case discussed with the treatment team. Patient was very superficial and minimally cooperative reports that he is feeling fine and he doesn't need to talk to anybody today. He denies feeling hopeless or suicidal and denies any hallucinations. He denies any paranoid ideation or delusions but he presented guarded and was isolating himself in his room. Patient has been taking his medications and he denies any side effect. Patient is not going to groups and minimally interacting with other peers in the unit. As per unit staff, the plan for the patient to be discharged to snf with structured environment. The patient had a probate court order for treatment. Objective: Vitals has been reviewed. Mental status examination: Appearance: The patient appears stated age, fairly groomed and dressed, no specific features. Gait/posture: Normal gait, Normal arm swinging: No abnormal movements. Attitude and behavior: Not engaged, not cooperative, poor eye contact. Motor activity: Decreased psychomotor activity Speech: Normal rate, tone. Mood: Anxious Affect: Restricted range Thought form: Very restricted thoughts. Thought content: Paranoid, denies suicidal thoughts, denies homicidal thoughts, denies intentions or plans. Patient is very isolated and guarded Perception: Denies any auditory or visual hallucinations Attention: No major impairment. Orientation: Patient is oriented to time, person, place, and situation. Insight: Patient has limited insight about his psychiatric disorder. Judgment: Patient has limited judgment about his psychiatric treatment. Assessment: Schizophrenia. Plan: Continue inpatient level of care due to need for further stabilization on medications Continue treatment of psychotic disorder provide psychiatric education regarding about his diagnosis Precautions: Continue 15 minutes check for safety. Consider medical consultation if any acute medical issues arise. Provide the patient individual, group therapy, substance use disorder counseling to give better insight and learn coping skills. Continue follow-up with the patient daily to monitor progress of psychotic symptoms. Medications: Continue Invega 6 mg by mouth daily for psychotic symptoms. As per nursing, the patient received 2 doses of Invega Sustenna with first dose was last week and 2nd dose 156 mg Wednesday 06/13 for psychotic symptoms Discharge patient to OUTPATIENT services upon a stabilization Prognosis: Deterioration of symptoms with more isolation, guarded, and probably paranoid. Expected LOS: 2-3 days
[2019-06-29 06:30] VITALS: TEMP 97.7
[2019-06-29] MEDS: PALIPERIDONE 6 MG TAB.ER.24 PO SCH (09:16)
--- NOTE | 2019-06-29 11:48 | P.PN ---
Progress Note - Text Progress Note Date: 06/29/19 Chief complaint: "I'm feeling okay, and I don't want to talk" Subjective: The patient has been seen today as follow-up, chart reviewed, case discussed with the treatment team. Patient slept about 6 hours last night. Patient has not been going to any groups and other unit activities. No report of appetite problems, and patient finishes most of his meals. Patient was very superficial and minimally cooperative, but he denies feeling hopeless or suicidal. He denies any severe agitation or homicidal ideation. He denies any paranoid thoughts, but he apparently was guarded and isolative. He denies any auditory or visual hallucinations. Discussed with the treatment team that patient will be discharged to structured home group. The patient is compliant with his medications and denies any adverse reactions. No reports of any manic or severe psychotic symptoms. Objective: Vitals has been reviewed. Mental status examination: Appearance: The patient appears stated age, fairly groomed and dressed, no specific features. Gait/posture: Normal gait, Normal arm swinging: No abnormal movements. Attitude and behavior: Not engaged, not cooperative, poor eye contact. Motor activity: Normal psychomotor activity Speech: Normal rate, tone. Mood: "Fine" Affect: Restricted range Thought form: Very restricted thoughts. Thought content: Denies paranoid ideation, denies suicidal thoughts, denies homicidal thoughts, denies intentions or plans. Patient is very isolated and guarded Perception: Denies any auditory or visual hallucinations Attention: No major impairment. Orientation: Patient is oriented to time, person, place, and situation. Insight: Patient has limited insight about his psychiatric disorder. Judgment: Patient has limited judgment about his psychiatric treatment. Assessment: Schizophrenia. Plan: Continue inpatient level of care due to need for further stabilization on medications Continue treatment of psychotic disorder provide psychiatric education regarding about his diagnosis Precautions: Continue 15 minutes check for safety. Consider medical consultation if any acute medical issues arise. Provide the patient individual, group therapy, substance use disorder counseling to give better insight and learn coping skills. Continue follow-up with the patient daily to monitor progress of psychotic symptoms. Medications: Continue Invega 6 mg by mouth daily for psychotic symptoms. As per nursing, the patient received 2 doses of Invega Sustenna with first dose was last week and 2nd dose 156 mg Wednesday 06/13 for psychotic symptoms Discharge patient to OUTPATIENT services upon a stabilization Prognosis: Stable psychiatric symptoms Expected LOS: 1-2 days
[2019-06-30 06:28] VITALS: BP 107/56; PULSE 67
[2019-06-30] MEDS: PALIPERIDONE 6 MG TAB.ER.24 PO SCH (08:28)
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
== END 2019-06-30 17:21 | disposition home or self-care (01) | DRG 885 ==
LOC: 3MHU 13:00
PROVIDERS: ADMIT Psychiatry & Neurology Psychiatry; ATTEND Psychiatry & Neurology Psychiatry
DX: F20.0 Paranoid schizophrenia (principal); N17.9 Acute kidney failure, unspecified; F17.210 Nicotine dependence, cigarettes, uncomplicated; Z79.899 Other long term (current) drug therapy; Z91.5 Personal history of self-harm; Z81.8 Family history of other mental and behavioral disorders; Z81.1 Family history of alcohol abuse and dependence; F90.9 Attention-deficit hyperactivity disorder, unspecified type; N18.9 Chronic kidney disease, unspecified; F11.11 Opioid abuse, in remission; F12.11 Cannabis abuse, in remission; F15.11 Other stimulant abuse, in remission; T43.96XA Underdosing of unspecified psychotropic drug, initial encounter; Z91.128 Patient's intentional underdosing of medication regimen for other reason
CPT/HCPCS: 80048; 80053; 80061; 83036; 84436; 84439; 84443; 84481; 85025

== ENCOUNTER 2019-08-25 10:54 | Inpatient (IN) | payer MEDICAID, OTHER ==
[2019-08-25] MEDS ORDERED: SODIUM CHLORIDE 0.9% 1,000 ML IV ONE (11:01)
--- NOTE | 2019-08-25 11:42 | ED ---
Overdose HPI - General Chief Complaint: Overdose Stated Complaint: drug ingestion Time Seen by Provider: 08/25/19 10:54 Source: patient, EMS, RN notes reviewed Mode of arrival: EMS Limitations: no limitations - History of Present Illness Initial Comments: This a 24-year-old male presents emergency Department via EMS from adult foster home for possible drug overdose. Patient reportedly was found with multiple packets of Coricidin. Patient states he only took 2 or 3 for headache but there was 72 missing and reportedly this was brought last night. Patient states that is about multiple packets over the last couple weeks. He denies being suicidal or homicidal and eyes any illicit drug use though he does admit to previous history. Patient has no specific complaints at this time patient is brought in from via EMS with police. Patient is petition at this time. - Related Data Home Medications Medication Instructions Recorded Confirmed Paliperidone [Invega] 6 mg PO HS 08/25/19 08/25/19 Previous Rx's Medication Instructions Recorded Paliperidone IM [Invega Sustenna] 156 mg IM Q28D #1 ml 06/30/19 Allergies Allergy/AdvReac Type Severity Reaction Status Date / Time No Known Allergies Allergy Verified 08/25/19 11:38 Review of Systems ROS Statement: Those systems with pertinent positive or pertinent negative responses have been documented in the HPI. ROS Other: All systems not noted in ROS Statement are negative. Past Medical History Past Medical History: No Reported History History of Any Multi-Drug Resistant Organisms: None Reported Past Surgical History: Orthopedic Surgery Past Psychological History: Depression Smoking Status: Current every day smoker Past Alcohol Use History: Occasional Past Drug Use History: Heroin, Marijuana, Methamphetamine General Exam Limitations: no limitations General appearance: alert, in no apparent distress Head exam: Present: atraumatic, normocephalic, normal inspection Eye exam: Present: normal appearance, PERRL, EOMI. Absent: scleral icterus, conjunctival injection, periorbital swelling ENT exam: Present: normal exam, normal oropharynx, mucous membranes moist, TM's normal bilaterally Neck exam: Present: normal inspection, full ROM. Absent: tenderness, mening ismus, lymphadenopathy Respiratory exam: Present: normal lung sounds bilaterally. Absent: respiratory distress, wheezes, rales, rhonchi, stridor Cardiovascular Exam: Present: regular rate, normal rhythm, normal heart sounds. Absent: systolic murmur, diastolic murmur, rubs, gallop, clicks GI/Abdominal exam: Present: soft, normal bowel sounds. Absent: distended, tenderness, guarding, rebound, rigid Neurological exam: Present: alert, oriented X3, CN II-XII intact, reflexes normal. Absent: motor sensory deficit Psychiatric exam: Present: normal affect, normal mood Skin exam: Present: warm, dry, intact, normal color. Absent: rash Course Vital Signs 08/25/19 08/25/19 08/25/19 10:59 13:27 14:06 Temperature 98.0 F Pulse Rate 95 92 83 Respiratory 16 16 16 Rate Blood Pressure 141/90 113/72 107/64 O2 Sat by Pulse 99 98 97 Oximetry 08/25/19 16:00 Temperature 98.3 F Pulse Rate 94 Respiratory 18 Rate Blood Pressure 128/80 O2 Sat by Pulse 99 Oximetry Medical Decision Making - Medical Decision Making Patient was medically cleared, poison control was contacted recommend supportive treatment. Labs are unremarkable. Patient by [facility] and EPS recommend inpatient treatment - Lab Data Result diagrams: 08/25/19 11:25 Lab Results 08/25/19 08/25/19 Range/Units 11:25 11:25 Sodium 142 (137-145) mmol/L Potassium 4.1 (3.5-5.1) mmol/L Chloride 105 (98-107) mmol/L Carbon Dioxide 28 (22-30) mmol/L Anion Gap 9 mmol/L BUN 15 (9-20) mg/dL Creatinine 1.24 (0.66-1.25) mg/dL Est GFR (CKD-EPI)AfAm >90 (>60 ml/min/1.73 sqM) Est GFR (CKD-EPI)NonAf 82 (>60 ml/min/1.73 sqM) Glucose 75 (74-99) mg/dL Calcium 9.9 (8.4-10.2) mg/dL Total Bilirubin 0.7 (0.2-1.3) mg/dL AST 23 (17-59) U/L ALT 9 (4-49) U/L Alkaline Phosphatase 52 (38-126) U/L Total Protein 7.6 (6.3-8.2) g/dL Albumin 4.9 (3.5-5.0) g/dL Urine Color Yellow Urine Appearance Clear (Clear) Urine pH 6.5 (5.0-8.0) Ur Specific [place] 1.020 (1.001-1.035) Urine Protein Negative (Negative) Urine Glucose (UA) Negative (Negative) Urine Ketones Negative (Negative) Urine Blood Negative (Negative) Urine Nitrite Negative (Negative) Urine Bilirubin Negative (Negative) Urine Urobilinogen <2.0 (<2.0) mg/dL Ur Leukocyte Esterase Negative (Negative) Salicylates <1.0 mg/dL Urine Opiates Screen Not Detected (NotDetected) Ur Oxycodone Screen Not Detected (NotDetected) Urine Methadone Screen Not Detected (NotDetected) Ur Propoxyphene Screen Not Detected (NotDetected) Acetaminophen <10.0 ug/mL Ur Barbiturates Screen Not Detected (NotDetected) U Tricyclic Antidepress Not Detected (NotDetected) Ur Phencyclidine Scrn Not Detected (NotDetected) Ur Amphetamines Screen Not Detected (NotDetected) U Methamphetamines Scrn Not Detected (NotDetected) U Benzodiazepines Scrn Not Detected (NotDetected) Urine Cocaine Screen Not Detected (NotDetected) U Marijuana (THC) Screen Not Detected (NotDetected) Disposition Clinical Impression: Drug overdose, intentional, Depression Disposition: TRANSFER TO PSYCH HOSP/UNIT Condition: Fair Referrals: Albert Delgado DO [Primary Care Provider] - 1-2 days
[2019-08-25 11:51] LABS: Appearance,Urine Clear (Clear); Bilirubin,Urine Negative (Negative); Blood,Urine Negative (Negative); Color,Urine Yellow; Glucose,Urine (UA) Negative (Negative); Ketones,Urine Negative (Negative); Leukocyte Esterase,Urine Negative (Negative); Nitrite,Urine Negative (Negative); PH, Urine 6.5 (5.0-8.0); Protein,Urine Negative (Negative); Urobilinogen,Urine <2.0 mg/dL (<2.0)
[2019-08-25 11:53] LABS: ALT 9 U/L (4-49); AST 23 U/L (17-59); Acetaminophen <10.0 ug/mL; African American GFR (CKD) >90 (>60 ml/min/1.73 sqM); Albumin 4.9 g/dL (3.5-5.0); Alkaline Phosphatase 52 U/L (38-126); Anion Gap 9 mmol/L; Blood Urea Nitrogen 15 mg/dL (9-20); Calcium 9.9 mg/dL (8.4-10.2); Carbon Dioxide 28 mmol/L (22-30); Chloride 105 mmol/L (98-107); Glucose 75 mg/dL (74-99); Non-African American GFR(CKD) 82 (>60 ml/min/1.73 sqM); Potassium 4.1 mmol/L (3.5-5.1); Salicylate <1.0 mg/dL; Sodium 142 mmol/L (137-145); Total Bilirubin 0.7 mg/dL (0.2-1.3); Total Protein 7.6 g/dL (6.3-8.2)
[2019-08-25 12:05] LABS: Amphetamine Screen,Urine Not Detected (NotDetected); Barbiturate Screen,Urine Not Detected (NotDetected); Benzodiazepines Screen,Urine Not Detected (NotDetected); Cocaine Screen,Urine Not Detected (NotDetected); Methadone Screen, Urine Not Detected (NotDetected); Opiate Screen,Urine Not Detected (NotDetected); Oxycodone Screen, Urine Not Detected (NotDetected); Phencyclidine Screen,Urine Not Detected (NotDetected); Tricyclic Antidepressant,Urine Not Detected (NotDetected); Urn Cannabinoid Scrn Not Detected (NotDetected)
[2019-08-25] MEDS ORDERED: LORazepam 1 MG TAB PO PRN (17:24)
[2019-08-25] MEDS ORDERED: ACETAMINOPHEN TAB 325 MG TAB PO PRN (17:24)
[2019-08-25] MEDS ORDERED: ZIPRASIDONE 20 MG VIAL IM PRN (17:24)
[2019-08-25] MEDS ORDERED: MAGNESIUM HYDROXIDE 2,400 MG/10 ML CUP PO PRN (17:24)
[2019-08-25] MEDS ORDERED: MAG HYDROX/AL HYDROX/SIMETH 30 ML CUP PO PRN (17:24)
[2019-08-25] MEDS: PALIPERIDONE 6 MG TAB.ER.24 PO SCH (20:40)
[2019-08-26 09:01] LABS: Basophils % (A) 1 %; Eosinophils # (A) 0.5 k/uL (0-0.7); Eosinophils % (A) 8 %; HCT 47.8 % (39.0-53.0); HGB 16.8 gm/dL (13.0-17.5); Lymphocytes # (A) 1.3 k/uL (1.0-4.8); Lymphocytes % (A) 22 %; MCH 31.9 pg (25.0-35.0); MCHC 35.1 g/dL (31.0-37.0); Mean Platelet Volume 6.8; Monocytes # (A) 0.4 k/uL (0-1.0); Monocytes % (A) 6 %; Neutrophils # (A) 3.8 k/uL (1.3-7.7); Neutrophils % (A) 61 %; Platelet Count 172 k/uL (150-450); RBC 5.26 m/uL (4.30-5.90); RDW 11.7 % (11.5-15.5); WBC 6.2 k/uL (3.8-10.6)
[2019-08-26 09:27] LABS: ALT 8 U/L (4-49); AST 19 U/L (17-59); African American GFR (CKD) >90 (>60 ml/min/1.73 sqM); Albumin 4.4 g/dL (3.5-5.0); Alkaline Phosphatase 50 U/L (38-126); Anion Gap 7 mmol/L; Blood Urea Nitrogen 17 mg/dL (9-20); Calcium 9.6 mg/dL (8.4-10.2); Carbon Dioxide 26 mmol/L (22-30); Chloride 106 mmol/L (98-107); Cholesterol 156 mg/dL (<200); Glucose 87 mg/dL (74-99); HDL Cholesterol 42 mg/dL (40-60); LDL Cholesterol,Calculated 78 mg/dL (0-99); Non-African American GFR(CKD) 83 (>60 ml/min/1.73 sqM); Potassium 4.2 mmol/L (3.5-5.1); Sodium 139 mmol/L (137-145); Total Bilirubin 0.8 mg/dL (0.2-1.3); Total Protein 6.9 g/dL (6.3-8.2); Triglycerides 182 mg/dL (<150)
[2019-08-26] MEDS: NICOTINE 14MG/24HR PATCH TRANSDERM SCH (10:29)
--- NOTE | 2019-08-26 11:23 | P.HP ---
Psychiatric H&P - . H&P Date: 08/26/19 History & Physical: DATE OF SERVICE: [08/26/2019] IDENTIFYING DATA: This patient is a [24]-year-old single male who was admitted to the mental health unit through [ER]. HISTORY OF PRESENT ILLNESS: The patient is a 24-year-old male who presented to emergency Department via EMS from adult foster home for possible drug overdose. Patient reportedly was found with multiple packets of Coricidin. Patient states he only took 2 or 3 for headache but there was 72 missing and reportedly this was brought last night. Patient states that is about multiple packets over the last couple weeks. He denies being suicidal or homicidal and eyes any illicit drug use though he does admit to previous history. Patient has no specific complaints at this time patient is brought in from via EMS with police. The patient is currently on court order for treatment until December 2019. The patient is a poor historian. Some information was obtained through chart review. The patient insists that he has been doing okay and did not take an overdose on the medications. The history obtained from the patient was unreliable. As per records the patient has [facility] staying at the [facility] since June 2019 when he was discharged from the mental health unit. The patient reports her sleep and appetite and denies any problems at this time. The patient is currently followed up at the [facility] and is on Invega Sustenna 156 mg IM every monthly. He got his last injection on 08/06/2019. PAST PSYCHIATRIC HISTORY: Past hospitalizations: The patient was admitted to [facility] unit in June 2019. Suicidal attempts: Denies Medications: Invega PAST MEDICAL HISTORY: [Denies]. ALLERGIES: [No known drug allergies]. CHEMICAL DEPENDENCY HISTORY: []. Alcohol Denies Marijuana Denies Cocaine Denies Opioids Denies Rehab: None FAMILY PSYCHIATRIC HISTORY: [Denies]. FAMILY CHEMICAL DEPENDENCY HISTORY:[Denies]. LEGAL HISTORY: [Denies]. SOCIAL HISTORY: [Patient relays that he's been living at an [facility] home. He has not been , he does not have any children, he relates that he is not working. When asked about sports he says that he's played football volleyball and swimming. He did get his GED. He was born and raised in [place]. The patient reports her parents and he was raised by his grandparents. He denies any history of abuse.]. MENTAL STATUS EXAM: Mental status examination: Appearance: The patient appears stated age, casually dressed, no specific features. Gait/posture: Normal gait, Normal arm swinging: No abnormal movements. Attitude and behavior: Not engaged, not cooperative, poor eye contact. Motor activity: Normal psychomotor activity Speech: Normal rate, tone. Mood: "Fine" Affect: Flat Thought form: Appears preoccupied. Answers were limited to short phrases. Thought content: Denies paranoid ideation, denies suicidal thoughts, denies homicidal thoughts, denies intentions or plans. Patient is very isolated and guarded Perception: Denies any auditory or visual hallucinations Attention: Easily distractible Orientation: Patient is oriented to time, person, place, and situation. Insight: Patient has limited insight about his psychiatric disorder. Judgment: Patient has limited judgment about his psychiatric treatment. Allergies Allergy/AdvReac Type Severity Reaction Status Date / Time No Known Allergies Allergy Verified 08/25/19 11:38 Vital Signs Temp 97.6 F 08/26/19 06:46 Pulse 72 08/26/19 06:46 Resp 16 08/26/19 06:46 BP 118/58 08/26/19 06:46 Pulse Ox 99 08/25/19 16:00 Intake & Output 08/25/19 08/26/19 08/26/19 18:59 06:59 18:59 Intake Total 1000 Balance 1000 Weight 93.5 kg Intake: Amount of Fluid Infused ( 1000 ml) Laboratory Last Values WBC 6.2 k/uL (3.8-10.6) 08/26/19 08:11 RBC 5.26 m/uL (4.30-5.90) 08/26/19 08:11 Hgb 16.8 gm/dL (13.0-17.5) 08/26/19 08:11 Hct 47.8 % (39.0-53.0) 08/26/19 08:11 MCV 91.0 fL (80.0-100.0) 08/26/19 08:11 MCH 31.9 pg (25.0-35.0) 08/26/19 08:11 MCHC 35.1 g/dL (31.0-37.0) 08/26/19 08:11 RDW 11.7 % (11.5-15.5) 08/26/19 08:11 Plt Count 172 k/uL (150-450) 08/26/19 08:11 Neutrophils % 61 % 08/26/19 08:11 Lymphocytes % 22 % 08/26/19 08:11 Monocytes % 6 % 08/26/19 08:11 Eosinophils % 8 % 08/26/19 08:11 Basophils % 1 % 08/26/19 08:11 Neutrophils # 3.8 k/uL (1.3-7.7) 08/26/19 08:11 Lymphocytes # 1.3 k/uL (1.0-4.8) 08/26/19 08:11 Monocytes # 0.4 k/uL (0-1.0) 08/26/19 08:11 Eosinophils # 0.5 k/uL (0-0.7) 08/26/19 08:11 Basophils # 0.0 k/uL (0-0.2) 08/26/19 08:11 Sodium 139 mmol/L (137-145) 08/26/19 08:11 Potassium 4.2 mmol/L (3.5-5.1) 08/26/19 08:11 Chloride 106 mmol/L (98-107) 08/26/19 08:11 Carbon Dioxide 26 mmol/L (22-30) 08/26/19 08:11 Anion Gap 7 mmol/L 08/26/19 08:11 BUN 17 mg/dL (9-20) 08/26/19 08:11 Creatinine 1.22 mg/dL (0.66-1.25) 08/26/19 08:11 Est GFR (CKD-EPI)AfAm >90 (>60 ml/min/1.73 sqM) 08/26/19 08:11 Est GFR (CKD-EPI)NonAf 83 (>60 ml/min/1.73 sqM) 08/26/19 08:11 Glucose 87 mg/dL (74-99) 08/26/19 08:11 Calcium 9.6 mg/dL (8.4-10.2) 08/26/19 08:11 Total Bilirubin 0.8 mg/dL (0.2-1.3) 08/26/19 08:11 AST 19 U/L (17-59) 08/26/19 08:11 ALT 8 U/L (4-49) 08/26/19 08:11 Alkaline Phosphatase 50 U/L (38-126) 08/26/19 08:11 Total Protein 6.9 g/dL (6.3-8.2) 08/26/19 08:11 Albumin 4.4 g/dL (3.5-5.0) 08/26/19 08:11 Triglycerides 182 mg/dL (<150) H 08/26/19 08:11 Cholesterol 156 mg/dL (<200) 08/26/19 08:11 LDL Cholesterol, Calc 78 mg/dL (0-99) 08/26/19 08:11 HDL Cholesterol 42 mg/dL (40-60) 08/26/19 08:11 TSH 0.544 mIU/L (0.465-4.680) 08/26/19 08:11 Urine Color Yellow 08/25/19 11:25 Urine Appearance Clear (Clear) 08/25/19 11:25 Urine pH 6.5 (5.0-8.0) 08/25/19 11:25 Ur Specific [place] 1.020 (1.001-1.035) 08/25/19 11:25 Urine Protein Negative (Negative) 08/25/19 11:25 Urine Glucose (UA) Negative (Negative) 08/25/19 11:25 Urine Ketones Negative (Negative) 08/25/19 11:25 Urine Blood Negative (Negative) 08/25/19 11:25 Urine Nitrite Negative (Negative) 08/25/19 11:25 Urine Bilirubin Negative (Negative) 08/25/19 11:25 Urine Urobilinogen <2.0 mg/dL (<2.0) 08/25/19 11:25 Ur Leukocyte Esterase Negative (Negative) 08/25/19 11:25 Salicylates <1.0 mg/dL 08/25/19 11:25 Urine Opiates Screen Not Detected (NotDetected) 08/25/19 11:25 Ur Oxycodone Screen Not Detected (NotDetected) 08/25/19 11:25 Urine Methadone Screen Not Detected (NotDetected) 08/25/19 11:25 Ur Propoxyphene Screen Not Detected (NotDetected) 08/25/19 11:25 Acetaminophen <10.0 ug/mL 08/25/19 11:25 Ur Barbiturates Screen Not Detected (NotDetected) 08/25/19 11:25 U Tricyclic Antidepress Not Detected (NotDetected) 08/25/19 11:25 Ur Phencyclidine Scrn Not Detected (NotDetected) 08/25/19 11:25 Ur Amphetamines Screen Not Detected (NotDetected) 08/25/19 11:25 U Methamphetamines Scrn Not Detected (NotDetected) 08/25/19 11:25 U Benzodiazepines Scrn Not Detected (NotDetected) 08/25/19 11:25 Urine Cocaine Screen Not Detected (NotDetected) 08/25/19 11:25 U Marijuana (THC) Screen Not Detected (NotDetected) 08/25/19 11:25 08/26/19 10:51 08/26/19 11:14 Assessment and Plan Assessment: IMPRESSIONS: Chronic paranoid schizophrenia Plan: PLAN: Admit to the mental health unit. Continue inpatient level of care due to need for further stabilization on medications Continue treatment of psychotic disorder provide psychiatric education regarding about his diagnosis Precautions: Continue 15 minutes check for safety and suicidal precautions. Consider medical consultation if any acute medical issues arise. Provide the patient individual, Placed on suicidal precautions 1:1 support and psychotherapy Continue [N Mauricio 6 mg by mouth daily at bedtime] Milieu therapy including PT, OT and GT. Adjust medications and monitor closely for the patient's symptoms getting worse and /or possible side effects on medications.
--- NOTE | 2019-08-26 14:06 | P.CONS ---
History of Present Illness - Reason for Consult medical clearance - History of Present Illness 24-year-old the rober male was admitted to psychiatric floor for acute psychosis and patient does have history of paranoid schizophrenia. Patient denied any fever chills nausea vomiting abdominal pain dysuria. Patient does smoke about half a pack a day of cigarettes. Patient denied any alcohol abuse or drug abuse. Denies any homicidal or suicidal ideations. Review of Systems REVIEW OF SYSTEMS: CONSTITUTIONAL: No fever, no malaise, no fatigue. HEENT: No recent visual problems or hearing problems. Denied any sore throat. CARDIOVASCULAR: No chest pain, orthopnea, PND, no palpitations, no syncope. PULMONARY: No shortness of breath, no cough, no hemoptysis. GASTROINTESTINAL: No diarrhea, no nausea, no vomiting, no abdominal pain. NEUROLOGICAL: No headaches, no weakness, no numbness. HEMATOLOGICAL: Denies any bleeding or petechiae. GENITOURINARY: Denies any burning micturition, frequency, or urgency. MUSCULOSKELETAL/RHEUMATOLOGICAL: Denies any joint pain, swelling, or any muscle pain. ENDOCRINE: Denies any polyuria or polydipsia. The rest of the 14-point review of systems is negative. Past Medical History Past Medical History: No Reported History History of Any Multi-Drug Resistant Organisms: None Reported Past Surgical History: No Surgical Hx Reported Past Psychological History: Depression Smoking Status: Current every day smoker Past Alcohol Use History: Occasional Past Drug Use History: Heroin, Marijuana, Methamphetamine Medications and Allergies Home Medications Medication Instructions Recorded Confirmed Type Paliperidone IM [Invega Sustenna] 156 mg IM Q28D #1 ml 06/30/19 08/25/19 Rx Paliperidone [Invega] 6 mg PO HS 08/25/19 08/25/19 History Allergies Allergy/AdvReac Type Severity Reaction Status Date / Time No Known Allergies Allergy Verified 08/25/19 11:38 Physical Exam Vitals: Vital Signs Temp Pulse Pulse Resp BP BP Pulse Ox 08/26/19 06:46 97.6 F 72 16 118/58 08/25/19 17:58 75 18 113/73 08/25/19 16:00 98.3 F 94 18 128/80 99 08/25/19 14:06 83 16 107/64 97 Intake and Output 08/25/19 08/26/19 08/26/19 22:59 06:59 14:59 Intake Total 1000 Balance 1000 Intake: Amount of Fluid Infused ( 1000 ml) Other: Weight 93.5 kg PHYSICAL EXAMINATION: GENERAL: The patient is alert and oriented x3, not in any acute distress. Well developed, well nourished. HEENT: Pupils are round and equally reacting to light. EOMI. No scleral icterus. No conjunctival pallor. Normocephalic, atraumatic. No pharyngeal erythema. No thyromegaly. CARDIOVASCULAR: S1 and S2 present. No murmurs, rubs, or gallops. PULMONARY: Chest is clear to auscultation, no wheezing or crackles. ABDOMEN: Soft, nontender, nondistended, normoactive bowel sounds. No palpable organomegaly. MUSCULOSKELETAL: No joint swelling or deformity. EXTREMITIES: No cyanosis, clubbing, or pedal edema. NEUROLOGICAL: Gross neurological examination did not reveal any focal deficits. SKIN: No rashes. Results CBC & Chem 7: 08/26/19 08:11 08/26/19 08:11 Labs: Abnormal Lab Results - Last 24 Hours (Table) 08/26/19 Range/Units 08:11 Triglycerides 182 H (<150) mg/dL Assessment and Plan Plan: acute psychosis, history of paranoid schizophrenia: Management as per primary service -Nicotine abuse: Counseling was provided Patient is medically stable no further recommendations from medical perspective we'll sign off at this time, was back if needed.
[2019-08-26 18:32] LABS: Hemoglobin A1C 4.5 % (4.0-6.0)
[2019-08-26] MEDS: PALIPERIDONE 6 MG TAB.ER.24 PO SCH (20:47)
[2019-08-27] MEDS: NICOTINE 14MG/24HR PATCH TRANSDERM SCH (09:02)
--- NOTE | 2019-08-27 11:07 | P.PN ---
Subjective Progress Note Date: 08/27/19 The patient seen in the chart was reviewed. The case was discussed with the staff on the unit. The patient reports doing well and denies any problems at this time. He remained withdrawn and isolative on the unit. He does not attend any group therapy. The patient remained guarded but denies any auditory or visual hallucinations. He denies any paranoia. He denies any suicidal or homicidal ideations at this time. The patient reports good sleep and appetite. He remained focused on getting discharged from the unit. The patient is superficially pleasant and cooperative with the treatment. The patient reports compliance with the medications and denies any side effects at this time. Objective - Vital Signs Vital signs: Vital Signs Temp 98.2 F 08/27/19 06:13 Pulse 82 08/27/19 06:13 Resp 14 08/27/19 06:13 BP 123/63 08/27/19 06:13 Pulse Ox 99 08/25/19 16:00 - Exam Objective: Vitals has been reviewed. Mental status examination; Appearance: The patient appears stated age, adequately groomed and dressed, no specific features. Gait/posture: Normal gait, Normal arm swinging: No abnormal movements. Attitude and behavior: engaged, cooperative, eye contact. Motor activity: Normal psychomotor activity Speech: Normal rate, tone. Mood: Anxious, depressed. Affect: Constricted Thought form: goal-directed, linear, coherent. Thought content: Non-delusional, denies suicidal thoughts, but reports feeling hopeless, denies homicidal thoughts, denies intentions or plans. Perception: Denies any auditory or visual hallucinations Orientation: Patient patient was fully oriented to time place person and situation. Insight: Patient has fair insight about his psychiatric disorder. Judgment: Patient has fair judgment about his psychiatric treatment. - Labs CBC & Chem 7: 08/26/19 08:11 08/26/19 08:11 Assessment and Plan Assessment: IMPRESSIONS: Chronic paranoid schizophrenia Plan: PLAN: Continue inpatient level of care due to need for further stabilization on medications Continue treatment of psychotic disorder provide psychiatric education regarding about his diagnosis Precautions: Continue 15 minutes check for safety and suicidal precautions. Provide the patient individual, group and occupational therapy. Placed on suicidal precautions 1:1 support and psychotherapy Continue [Invega 6 mg by mouth daily at bedtime] Milieu therapy including PT, OT and GT. Adjust medications and monitor closely for the patient's symptoms getting worse and /or possible side effects on medications.
[2019-08-27] MEDS: PALIPERIDONE 6 MG TAB.ER.24 PO SCH (21:01)
[2019-08-28] MEDS: NICOTINE 14MG/24HR PATCH TRANSDERM SCH (09:22)
--- NOTE | 2019-08-28 14:20 | P.PN ---
Progress Note - Text Progress Note Date: 08/28/19 Interval history: Patient [place] [facility] [place] Reports that he is feeling better. He reports he is sleeping well and his appetite is fine. He does not voice any adverse side effects with in [place]. He related that he is taking his medication. Mental status exam: He is alert and cooperative with the interview. His speech is fluent, answers are somewhat brief. His current mood appears to be stable. He denies any thoughts of harm to self or others. He does not make any anil delusional statements. He denies any auditory or visual hallucinations. He does not present with any agitation. Plan: Patient will be maintained on current psychotropic medication regimen. Continue to monitor for any medication side effects and monitor his ongoing response to treatment.
[2019-08-28] MEDS: PALIPERIDONE 6 MG TAB.ER.24 PO SCH (22:11)
[2019-08-29] MEDS: NICOTINE 14MG/24HR PATCH TRANSDERM SCH (08:40)
--- NOTE | 2019-08-29 14:11 | P.PN ---
Progress Note - Text Progress Note Date: 08/29/19 Interval history: Patient is seen in [facility] again today. He reports he slept 8+ hours last night. His appetite seems to be fine. He does not verbalize any adverse psychotropic medication side effects. He inquires regarding discharge planning. Mental status exam: He is alert and cooperative with the interview. His mood he describes as a 10 out of 10. He denies any thoughts of harm to self or others. He denies any hallucinations. He does not make any anil delusional statements. He does not display any agitation. His speech is not rapid or pressured. Plan: Patient will be maintained on current psychotropic medication regimen. Continue to monitor any medication side effects and monitor his ongoing response to treatment.
[2019-08-29] MEDS: PALIPERIDONE 6 MG TAB.ER.24 PO SCH (21:22)
[2019-08-30] MEDS: NICOTINE 14MG/24HR PATCH TRANSDERM SCH (09:09)
[2019-08-30] MEDS ORDERED: PALIPERIDONE IM 234 MG/1.5 ML SYG IM STA (12:14)
--- NOTE | 2019-08-30 12:14 | P.PN ---
Subjective Progress Note Date: 08/30/19 Chief complaint: "I am doing alright" Subjective: The patient has been seen today as follow-up, chart reviewed, case discussed with the treatment team. Patient has been going to selected groups and other [employer] activities. Patient reports better sleep and appetite. He reports doing well and remained focused on getting discharged from the hospital. The patient denies any crying spells or panic attacks. The patient denies any auditory or visual hallucinations. Also the patient denies any paranoid ideation. The patient denies any suicidal or homicidal ideations. He remained somewhat guarded and withdrawn on the unit but otherwise appropriate during the session. The patient is compliant with his medications and denies any adverse reactions. Objective - Vital Signs Vital signs: Vital Signs Temp 97.6 F 08/30/19 06:51 Pulse 74 08/30/19 06:51 Resp 16 08/30/19 06:51 BP 115/67 08/30/19 06:51 Pulse Ox 100 08/30/19 06:51 - Exam Objective: Vitals has been reviewed. Mental status examination; Appearance: The patient appears stated age, adequately groomed and dressed, no specific features. Gait/posture: Normal gait, Normal arm swinging: No abnormal movements. Attitude and behavior: engaged, cooperative, eye contact. Motor activity: Normal psychomotor activity Speech: Normal rate, tone. Mood: Anxious, depressed. Affect: Constricted Thought form: goal-directed, linear, coherent. Thought content: Non-delusional, denies suicidal thoughts, but reports feeling hopeless, denies homicidal thoughts, denies intentions or plans. Perception: Denies any auditory or visual hallucinations Orientation: Patient patient was fully oriented to time place person and situati on. Insight: Patient has fair insight about his psychiatric disorder. Judgment: Patient has fair judgment about his psychiatric treatment. - Labs CBC & Chem 7: 08/26/19 08:11 08/26/19 08:11 Assessment and Plan Assessment: IMPRESSIONS: Chronic paranoid schizophrenia Plan: PLAN: Continue inpatient level of care due to need for further stabilization on medications Continue treatment of psychotic disorder provide psychiatric education regarding about his diagnosis Precautions: Continue 15 minutes check for safety and suicidal precautions. Provide the patient individual, group and occupational therapy. Placed on suicidal precautions 1:1 support and psychotherapy Invega sustenna 234 mg IM. Continue Invega 6 mg by mouth daily at bedtime Milieu therapy including PT, OT and GT. Adjust medications and monitor closely for the patient's symptoms getting worse and /or possible side effects on medications.
[2019-08-30] MEDS: PALIPERIDONE 6 MG TAB.ER.24 PO SCH (20:37)
[2019-08-31] MEDS: NICOTINE 14MG/24HR PATCH TRANSDERM SCH (09:09)
--- NOTE | 2019-08-31 12:06 | P.PN ---
Subjective Progress Note Date: 08/31/19 The patient was seen in the chart was reviewed. The case was discussed with the staff on the unit in the team meeting. The patient reports feeling better. He reports improved mood and functioning. The patient has been attending milieu therapy. He has been more animated on the unit. The patient reports motivation towards to treatment. The patient denies any auditory or visual hallucinations. He denies any active suicidal or homicidal ideations at this time. The patient has been cooperative and compliant with the treatment and denies any side effects at this time. Objective - Vital Signs Vital signs: Vital Signs Temp 98.8 F 08/31/19 06:20 Pulse 86 08/31/19 06:20 Resp 15 08/31/19 06:20 BP 106/61 08/31/19 06:20 Pulse Ox 99 08/31/19 06:20 - Exam Objective: Vitals has been reviewed. Mental status examination; Appearance: The patient appears stated age, adequately groomed and dressed, no specific features. Gait/posture: Normal gait, Normal arm swinging: No abnormal movements. Attitude and behavior: engaged, cooperative, eye contact. Motor activity: Normal psychomotor activity Speech: Normal rate, tone. Mood: Anxious, depressed. Affect: Constricted Thought form: goal-directed, linear, coherent. Thought content: Non-delusional, denies suicidal thoughts, but reports feeling hopeless, denies homicidal thoughts, denies intentions or plans. Perception: Denies any auditory or visual hallucinations Orientation: Patient patient was fully oriented to time place person and situation. Insight: Patient has fair insight about his psychiatric disorder. Judgment: Patient has fair judgment about his psychiatric treatment. - Labs CBC & Chem 7: 08/26/19 08:11 08/26/19 08:11 Assessment and Plan Assessment: IMPRESSIONS: Chronic paranoid schizophrenia Plan: PLAN: Continue inpatient level of care due to need for further stabilization on medications Continue treatment of psychotic disorder provide psychiatric education regarding about his diagnosis Precautions: Continue 15 minutes check for safety and suicidal precautions. Provide the patient individual, group and occupational therapy. Placed on suicidal precautions 1:1 support and psychotherapy Invega sustenna 234 mg IM. Continue Invega 6 mg by mouth daily at bedtime Milieu therapy including PT, OT and GT. Adjust medications and monitor closely for the patient's symptoms getting worse and /or possible side effects on medications.
[2019-08-31] MEDS: PALIPERIDONE 6 MG TAB.ER.24 PO SCH (20:30)
[2019-09-01 06:52] VITALS: BP 114/74; PULSE 69; RESP 18; TEMP 97.7
[2019-09-01] MEDS: NICOTINE 14MG/24HR PATCH TRANSDERM SCH (09:35)
[2019-09-01] MEDS ORDERED: PALIPERIDONE IM 234 MG/1.5 ML SYG IM STA (11:29)
--- NOTE | 2019-09-01 11:35 | P.DS ---
Providers Date of admission: 08/25/19 17:01 Attending physician: Nicole Osorio MD Consults: 08/25/19 17:24 Consult Physician Routine Consulting Provider: Dona Zepeda Consult Reason/Comments: H & P and medical care Do you want consulting provider notified?: Yes Primary care physician: [facility] Course: IDENTIFYING DATA: This patient is a [24]-year-old single male who was admitted to the mental health unit through [ER]. HISTORY OF PRESENT ILLNESS: The patient was a 24-year-old male who presented to emergency Department via EMS from adult foster home for possible drug overdose. Patient reportedly was found with multiple packets of Coricidin. Patient states he only took 2 or 3 for headache but there was 72 missing and reportedly this was brought last night. Patient states that is about multiple packets over the last couple weeks. He denies being suicidal or homicidal and eyes any illicit drug use though he does admit to previous history. Patient has no specific complaints at this time patient is brought in from via EMS with police. The patient is currently on court order for treatment until December 2019. The patient is a poor historian. Some information was obtained through chart review. The patient insists that he has been doing okay and did not take an overdose on the medications. The history obtained from the patient was unreliable. As per records the [facility] when he was discharged from the mental health unit. The patient reports her sleep and appetite and denies any problems at this time. The patient is currently followed up at the [facility] and is on Invega Sustenna 156 mg IM every monthly. He got his last injection on 08/06/2019. PAST PSYCHIATRIC HISTORY: Past hospitalizations: The patient was admitted to [facility] health unit in June 2019. Suicidal attempts: Denies Medications: Invega PAST MEDICAL HISTORY: [Denies]. ALLERGIES: [No known drug allergies]. CHEMICAL DEPENDENCY HISTORY: []. Alcohol Denies Marijuana Denies Cocaine Denies Opioids Denies Rehab: None FAMILY PSYCHIATRIC HISTORY: [Denies]. FAMILY CHEMICAL DEPENDENCY HISTORY:[Denies]. LEGAL HISTORY: [Denies]. SOCIAL HISTORY: [Patient relays that he's been living at an [facility] home. He has not been , he does not have any children, he relates that he is not working. When asked about sports he says that he's played football volleyball and swimming. He did get his GED. He was born and raised in [place]. The patient reports her parents and he was raised by his grandparents. He denies any history of abuse.]. MENTAL STATUS EXAM: Mental status examination: Appearance: The patient appears stated age, casually dressed, no specific features. Gait/posture: Normal gait, Normal arm swinging: No abnormal movements. Attitude and behavior: Not engaged, not cooperative, poor eye contact. Motor activity: Normal psychomotor activity Speech: Normal rate, tone. Mood: "Fine" Affect: Flat Thought form: Appears preoccupied. Answers were limited to short phrases. Thought content: Denies paranoid ideation, denies suicidal thoughts, denies homicidal thoughts, denies intentions or plans. Patient is very isolated and guarded Perception: Denies any auditory or visual hallucinations Attention: Easily distractible Orientation: Patient is oriented to time, person, place, and situation. Insight: Patient has limited insight about his psychiatric disorder. Judgment: Patient has limited judgment about his psychiatric treatment. Hospital course. The patient was admitted to the mental health unit. provided psychiatric education regarding about his diagnosis Precautions: Continue 15 minutes check for safety and suicidal precautions. Medical consultation if any acute medical issues arise. Provided the patient individual, Placed on suicidal precautions 1:1 support and psychotherapy Continue InVega 6 mg by mouth daily at bedtime] Milieu therapy including PT, OT and GT. The patient tolerated the medications without any side effects. The patient started showing some improvement in mood and functioning. The patient was cooperative and compliant with the treatment. The patient reported some improvement in his mood. His affect became brighter. The patient participated in treatment planning. The patient was given Invega Sustenna 134 mg IM that he tolerated without any side effects. Discharge plans were initiated and the patient was discharged back to the [facility] home on 09/01/2019. His condition was stable at the time of discharge the patient was to follow-up with [facility] as an outpatient. Patient Condition at Discharge: Stable Plan - Discharge Summary New Discharge Prescriptions: New Paliperidone IM [Invega Sustenna] 234 mg IM ONCE #1 kit Continue Paliperidone [Invega] 6 mg PO HS #30 tab Discontinued Paliperidone IM [Invega Sustenna] 156 mg IM Q28D #1 ml Discharge Medication List Paliperidone [Invega] 6 mg PO HS #30 tab 08/31/19 [Rx] Paliperidone IM [Invega Sustenna] 234 mg IM ONCE #1 kit 09/01/19 [Rx] Follow up Appointment(s)/Referral(s): [facility] [Outside] - 1 Week (09/02/19 at 2pm with Vira He 09/08/19 at [address] Alba) Albert Delgado DO [Primary Care Provider] - 1-2 days Activity/Diet/Wound Care/Special Instructions: Activity and diet as tolerated. Avoid the use of street drugs and alcohol. Take all medications as prescribed. When you are in need of refills on your medications please contact your medical provider and/or outpatient psychiatrist to have this done. Please go to scheduled outpatient appointment for aftercare treatment. If symptoms return or become worse, call the crisis line at and/or go to the nearest emergency room for evaluation.
--- NOTE | 2019-09-01 11:37 | P.PN ---
Subjective Progress Note Date: 09/01/19 Discharge Note: Patient was seen and chart was reviewed. Case discussed with staff. The patient reports doing better and denies any new problems at this time. He admits to fair energy and fair appetite. He claims that she slept better last night and does not remember having a nightmare. At this time patient denies any suicidal or homical ideations, intent or plan. Patient denies any auditory, visual hallucinations and denies any paranoia or delusions. Patient denies any side effects from the medications and has been compliant with meds. Objective - Vital Signs Vital signs: Vital Signs Temp 97.7 F 09/01/19 06:51 Pulse 69 09/01/19 06:51 Resp 18 09/01/19 06:51 BP 114/74 09/01/19 06:51 Pulse Ox 99 08/31/19 06:20 - Exam Mental Status Exam: General Appearance: Patient appears to be stated age is alert, directable. fair hygiene and grooming. Patient has improving eye contact. Behavior: Patient is seated without any agitated behavior. Appears to be less anxious Speech: Patient's speech is fluent and nonpressured. soft tone. Mood/Affect: Patient reports their mood/anxiety is mildly improving, affect is congruent Suicidality/Homicidality: Patient denies having any suicidal or homicidal ideation intent or plan. Perceptions: Patient denies any auditory or visual hallucinations. Though content/process: There is no evidence of any delusional thought content and thought process is linear and goal-directed. Memory and concentration: AOX3, grossly intact for the purposes of this session. Judgment and insight: mildly improving. - Labs CBC & Chem 7: 08/26/19 08:11 08/26/19 08:11 Assessment and Plan Assessment: IMPRESSIONS: Chronic paranoid schizophrenia Plan: Plan: -Patient continues to meet criteria for inpatient psychiatric admission for s ymptom stabilization and safety. Patient has signed adult voluntary form and medication consent and was placed in patient's chart. -Medications: Invega 6 mg by mouth daily at bedtime. Invega Sustenna 1 and 34 mg IM every monthly Continue -NRT -not needed as patient does not smoke -Discharge home today to follow-up as an outpatient.
== END 2019-09-01 17:40 | disposition home or self-care (01) | DRG 885 ==
LOC: EC 10:54 → EEVIPCON 10:54 → 3MHU 17:01
PROVIDERS: ADMIT Psychiatry & Neurology Psychiatry; ATTEND Psychiatry & Neurology Psychiatry
DX: F20.0 Paranoid schizophrenia (principal); F32.9 Major depressive disorder, single episode, unspecified; F17.210 Nicotine dependence, cigarettes, uncomplicated; T50.992A Poisoning by other drugs, medicaments and biological substances, intentional self-harm, initial encounter; F41.9 Anxiety disorder, unspecified; Z79.899 Other long term (current) drug therapy; Z71.6 Tobacco abuse counseling
CPT/HCPCS: 36415; 80053; 80061; 80306; 80329; 81003; 82075; 83036; 83520; 84443; 85025; 93005; 96360; 96361; 99285

== ENCOUNTER 2019-11-10 12:20 | Inpatient (IN) | payer MEDICAID, OTHER ==
--- NOTE | 2019-11-10 12:45 | ED ---
General Adult HPI - General Chief complaint: Psychiatric Symptoms Stated complaint: PETITIONED Time Seen by Provider: 11/10/19 12:20 Source: patient, police, RN notes reviewed, old records reviewed Mode of arrival: ambulatory Limitations: no limitations - History of Present Illness Initial comments: This is a 24-year-old male with past medical history significant for schizophrenia. Patient was brought in by police because at the [facility] he was threatening to kill some of the staff even though the patient denies this he also was leaving the [facility] at [place] is not supposed to do that. Patient denies any suicidal or homicidal ideations. Patient denies any physical complaints patient denies any illegal drug use. Patient states he doesn't know why is here. Patient does state that he thinks people at the [facility] I want to kill him. - Related Data Home Medications Medication Instructions Recorded Confirmed Paliperidone [Invega] 9 mg PO HS 11/10/19 11/10/19 Allergies Allergy/AdvReac Type Severity Reaction Status Date / Time latex Allergy Rash/Hives Verified 11/10/19 13:26 Review of Systems ROS Statement: Those systems with pertinent positive or pertinent negative responses have been documented in the HPI. ROS Other: All systems not noted in ROS Statement are negative. Past Medical History Past Medical History: No Reported History History of Any Multi-Drug Resistant Organisms: None Reported Past Surgical History: Orthopedic Surgery Additional Past Surgical History / Comment(s): carpal tunnel Past Psychological History: Depression Smoking Status: Current every day smoker Past Alcohol Use History: Occasional Past Drug Use History: Heroin, Marijuana, Methamphetamine General Exam - General Exam Comments Initial Comments: GENERAL: Patient is well-developed and well-nourished. Patient is nontoxic and well- hydrated and is in no acute distress. ENT: Neck is soft and supple. No significant lymphadenopathy is noted. Oropharynx is clear. Moist mucous membranes. Neck has full range of motion without eliciting any pain. EYES: The sclera were anicteric and conjunctiva were pink and moist. Extraocular movements were intact and pupils were equal round and reactive to light. Eyelids were unremarkable. PULMONARY: Unlabored respirations. Good breath sounds bilaterally. No audible rales r honchi or wheezing was noted. CARDIOVASCULAR: There is a regular rate and rhythm without any murmurs gallops or rubs. ABDOMEN: Soft and nontender with normal bowel sounds. SKIN: Skin is clear with no lesions or rashes and otherwise unremarkable. NEUROLOGIC: Patient is alert and oriented x3. Cranial nerves II through XII are grossly intact. Motor and sensory are also intact. Normal speech, volume and content. Symmetrical smile. MUSCULOSKELETAL: Normal extremities with adequate strength and full range of motion. LYMPHATICS: No significant lymphadenopathy is noted PSYCHIATRIC: Patient states she is not suicidal or homicidal. Patient states that people at the [facility] want to kill him. Limitations: no limitations Course Vital Signs 11/10/19 12:21 Temperature 97.8 F Pulse Rate 118 H Respiratory 20 Rate Blood Pressure 132/87 O2 Sat by Pulse 100 Oximetry Medical Decision Making - Medical Decision Making EPS evaluated the patient and determined the patient needed to be admitted. Disposition Clinical Impression: Schizophrenia Disposition: ADMITTED IP TO THIS HOSP Referrals: None,Stated [Primary Care Provider] - 1-2 days Time of Disposition: 14:47
[2019-11-10 15:05] LABS: Amphetamine Screen,Urine Not Detected (NotDetected); Barbiturate Screen,Urine Not Detected (NotDetected); Benzodiazepines Screen,Urine Not Detected (NotDetected); Cocaine Screen,Urine Not Detected (NotDetected); Methadone Screen, Urine Not Detected (NotDetected); Opiate Screen,Urine Not Detected (NotDetected); Oxycodone Screen, Urine Not Detected (NotDetected); Phencyclidine Screen,Urine Not Detected (NotDetected); Tricyclic Antidepressant,Urine Not Detected (NotDetected); Urn Cannabinoid Scrn Not Detected (NotDetected)
[2019-11-10] MEDS ORDERED: LORazepam 1 MG TAB PO STA (15:48)
[2019-11-10] MEDS ORDERED: MAGNESIUM HYDROXIDE 2,400 MG/10 ML CUP PO PRN (16:37)
[2019-11-10] MEDS ORDERED: ACETAMINOPHEN TAB 325 MG TAB PO PRN (16:37)
[2019-11-10] MEDS ORDERED: MAG HYDROX/AL HYDROX/SIMETH 30 ML CUP PO PRN (16:37)
[2019-11-10] MEDS ORDERED: LORazepam 1 MG TAB PO PRN (16:37)
[2019-11-10] MEDS ORDERED: ZIPRASIDONE 20 MG VIAL IM PRN (16:37)
[2019-11-10] MEDS: NICOTINE 14MG/24HR PATCH TRANSDERM SCH (19:52)
[2019-11-10] MEDS: PALIPERIDONE 3 MG TAB.ER.24 PO SCH (20:37)
--- NOTE | 2019-11-11 06:45 | P.MDCNMH ---
History of Present Illness H&P Date: 11/11/19 Chief Complaint: aggressive behavior at [facility] 24 year old male with schizophrenia patient was sent from [facility] , as he was threatening to others, he was accompanied by police. patient denies aggressive behavior, he denies non compliance with meds. he denies any auditory or visual hallucinations. he denies any suicidal or homicidal ideation,. denies any fever, chills, cough, chest pain , trouble breathing, abd pain , nausea or vomiting. he feels fine and denies any complaints at this time Patient denies any smoking, illegal drugs or alcohol Review of Systems Pertinent positives as noted in HPI. All other systems were reviewed and are negative Past Medical History Past Medical History: No Reported History History of Any Multi-Drug Resistant Organisms: None Reported Past Surgical History: Orthopedic Surgery Additional Past Surgical History / Comment(s): carpal tunnel Past Psychological History: Depression Smoking Status: Current every day smoker Past Alcohol Use History: Occasional Past Drug Use History: Heroin, Marijuana, Methamphetamine - Past Family History family Family Medical History: No Reported History Medications and Allergies Home Medications Medication Instructions Recorded Confirmed Type Paliperidone [Invega] 9 mg PO HS 11/10/19 11/10/19 History Allergies Allergy/AdvReac Type Severity Reaction Status Date / Time latex Allergy Rash/Hives Verified 11/10/19 13:26 Physical Exam Vitals: Vital Signs Temp Pulse Pulse Resp BP BP Pulse Ox 11/10/19 18:36 98.7 F 17 99 11/10/19 16:50 97.7 F 77 16 133/77 99 11/10/19 16:00 97.9 F 99 18 139/79 97 11/10/19 12:21 97.8 F 118 H 20 132/87 100 Intake and Output 11/10/19 11/10/19 11/11/19 14:59 22:59 06:59 Other: Weight 94.347 kg 94.5 kg Constitutional: No acute distress, conversant, pleasant Eyes: Anicteric sclerae, moist conjunctiva, Pupils equal round reactive to light ENMT: NC/AT Oropharynx clear, no erythema, or exudates Neck: Supple, FROM, no masses, or JVD No carotid bruits No thyromegaly Lungs: Clear to auscultation Clear to percussion Normal respiratory effort, no accessory muscle use Cardiovascular: Heart regular in rate and rhythm, No murmurs, gallops, or rubs No peripheral edema Abdominal: Soft Nontender, no guarding, rebound or rigidity Abdomen moving with respiration Normoactive bowel sounds No hepatomegaly, No splenomegaly No palpable mass No abdominal wall hernia noted Skin: Normal temperature, tone, texture, turgor No induration No subcutaneous nodules No rash, lesions No ulcers Extremities: No digital cyanosis No clubbing Pedal pulses intact and symmetrical Radial pulses intact and symmetrical No calf tenderness Psychiatric: Alert and oriented to person, place anxious poor judgement Neuro Muscles Strength 5/5 in all 4 extremities Sensation to light touch grossly present throughout Cranial nerves II-XII grossly intact No focal sensory deficits Lymphatics: no palpable cervical or supraclavicular , or inguinal lymph nodes Cranial Nerve Examination - Cranial Nerves Cranial Nerve II- Optic: Intact Cranial Nerve III- Oculomotor: Intact Cranial Nerve IV- Trochlear: Intact Cranial Nerve V- Trigeminal: Intact Cranial Nerve - Abducens: Intact Cranial Nerve VII- Facial: Intact Cranial Nerve VIII- Auditory: Intact Cranial Nerve IX- Glossopharyngeal: Intact Cranial Nerve X- Vagus: Intact Cranial Nerve XI- Accessory: Intact Cranial Nerve XII- Hypoglossal: Intact Assessment and Plan Assessment: 24 year old male with schizophrenia , comes in secondary to abnormal behavior and non compliance with his meds medicine consulted for medical management acute psychosis schizophrenia management per psych low risk for DVT, patient is ambulatory Thank you for allowing us to participate in the care of this patient. We will follow peripherally. Do not hesitate to contact us with questions. Someone can be reached from the [facility] hospitalist group at all hours of the day at [phone].
[2019-11-11] MEDS: NICOTINE 14MG/24HR PATCH TRANSDERM SCH ×2 (10:12→12:06)
[2019-11-11 10:27] LABS: Basophils % (A) 1 %; Eosinophils # (A) 0.4 k/uL (0-0.7); Eosinophils % (A) 5 %; HCT 45.8 % (39.0-53.0); HGB 15.7 gm/dL (13.0-17.5); Lymphocytes % (A) 13 %; MCH 31.7 pg (25.0-35.0); MCHC 34.3 g/dL (31.0-37.0); MCV 92.5 fL (80.0-100.0); Mean Platelet Volume 7.3; Monocytes # (A) 0.5 k/uL (0-1.0); Monocytes % (A) 6 %; Neutrophils # (A) 5.7 k/uL (1.3-7.7); Neutrophils % (A) 74 %; Platelet Count 179 k/uL (150-450); RBC 4.95 m/uL (4.30-5.90); RDW 12.4 % (11.5-15.5); WBC 7.7 k/uL (3.8-10.6)
[2019-11-11 10:38] LABS: ALT 8 U/L (4-49); AST 19 U/L (17-59); African American GFR (CKD) >90 (>60 ml/min/1.73 sqM); Albumin 4.1 g/dL (3.5-5.0); Alkaline Phosphatase 43 U/L (38-126); Anion Gap 7 mmol/L; Blood Urea Nitrogen 11 mg/dL (9-20); Carbon Dioxide 26 mmol/L (22-30); Chloride 105 mmol/L (98-107); Cholesterol 129 mg/dL (<200); Glucose 85 mg/dL (74-99); HDL Cholesterol 47 mg/dL (40-60); LDL Cholesterol,Calculated 62 mg/dL (0-99); Non-African American GFR(CKD) >90 (>60 ml/min/1.73 sqM); Potassium 4.2 mmol/L (3.5-5.1); Sodium 138 mmol/L (137-145); Total Bilirubin 0.6 mg/dL (0.2-1.3); Total Protein 6.5 g/dL (6.3-8.2); Triglycerides 99 mg/dL (<150)
--- NOTE | 2019-11-11 11:06 | P.HP ---
Psychiatric H&P - . H&P Date: 11/11/19 History & Physical: Allergies Allergy/AdvReac Type Severity Reaction Status Date / Time latex Allergy Rash/Hives Verified 11/10/19 13:26 Vital Signs Temp 97.9 F 11/11/19 06:40 Pulse 71 11/11/19 06:40 Resp 16 11/11/19 06:40 BP 135/62 11/11/19 06:40 Pulse Ox 97 11/11/19 06:40 Intake & Output 11/10/19 11/11/19 11/11/19 18:59 06:59 18:59 Weight 94.5 kg Laboratory Last Values WBC 7.7 k/uL (3.8-10.6) 11/11/19 07:32 RBC 4.95 m/uL (4.30-5.90) 11/11/19 07:32 Hgb 15.7 gm/dL (13.0-17.5) 11/11/19 07:32 Hct 45.8 % (39.0-53.0) 11/11/19 07:32 MCV 92.5 fL (80.0-100.0) 11/11/19 07:32 MCH 31.7 pg (25.0-35.0) 11/11/19 07:32 MCHC 34.3 g/dL (31.0-37.0) 11/11/19 07:32 RDW 12.4 % (11.5-15.5) 11/11/19 07:32 Plt Count 179 k/uL (150-450) 11/11/19 07:32 Neutrophils % 74 % 11/11/19 07:32 Lymphocytes % 13 % 11/11/19 07:32 Monocytes % 6 % 11/11/19 07:32 Eosinophils % 5 % 11/11/19 07:32 Basophils % 1 % 11/11/19 07:32 Neutrophils # 5.7 k/uL (1.3-7.7) 11/11/19 07:32 Lymphocytes # 1.0 k/uL (1.0-4.8) 11/11/19 07:32 Monocytes # 0.5 k/uL (0-1.0) 11/11/19 07:32 Eosinophils # 0.4 k/uL (0-0.7) 04/02/20 07:32 Basophils # 0.0 k/uL (0-0.2) 11/11/19 07:32 Urine Opiates Screen Not Detected (NotDetected) 11/10/19 14:37 Ur Oxycodone Screen Not Detected (NotDetected) 11/10/19 14:37 Urine Methadone Screen Not Detected (NotDetected) 11/10/19 14:37 Ur Propoxyphene Screen Not Detected (NotDetected) 11/10/19 14:37 Ur Barbiturates Screen Not Detected (NotDetected) 11/10/19 14:37 U Tricyclic Antidepress Not Detected (NotDetected) 11/10/19 14:37 Ur Phencyclidine Scrn Not Detected (NotDetected) 11/10/19 14:37 Ur Amphetamines Screen Not Detected (NotDetected) 11/10/19 14:37 U Methamphetamines Scrn Not Detected (NotDetected) 11/10/19 14:37 U Benzodiazepines Scrn Not Detected (NotDetected) 11/10/19 14:37 Urine Cocaine Screen Not Detected (NotDetected) 11/10/19 14:37 U Marijuana (THC) Screen Not Detected (NotDetected) 11/10/19 14:37 11/11/19 10:31 IDENTIFYING DATA: Patient is a 24-year-old male with a chronic history of schizophrenia who currently lives at an [facility] is not and has no kids and currently collects Social Security. HPI: Patient presented to the hospital yesterday was brought in by police for allegedly threatening to kill staff at the [facility] home he was in. Patient is currently on a court order until 12/20/2019. As per [facility] records, states that patient has had an increase in paranoia and at risk behaviors and had left his [place] home stole a bike and threatened to kill [facility] staff. Patient was seen this morning and was lying in his bed however was directable and agreeable to speak dreading the office. Patient denied any issues at the jail and states that he does not know why he is not hospital. Patient appeared to have poor insight and judgment and was minimizing his symptoms. He had poor hygiene and grooming and a constricted affect. She states that the reason why he is in the hospital is "my meds are off" and spoke about being on Seroquel and paliperidone. He states that he used to receive a "Seroquel shot" however has not got it recently. He denied making any threats to the [facility] staff and states "I wouldn't hurt anybody". Patient appeared to be responding to internal stimuli during the interview and was concrete and had a poverty of content. He states his mood is "pretty good" and denied any problems with sleep or appetite. She states that he has been taking his medications at home. Patient denies any suicidal or homicidal ideations intent or plan. Patient did not endorse any paranoia at this time. At this time patient denies any auditory or visual hallucinations. Patient denies any flight of ideas racing thoughts and increased in goal directed behavior. Patient admits to using cigarettes daily and denies any other recreational drug use. He states that he used to occasionally drink alcohol. UDS was negative on admission. PAST PSYCHIATRIC HISTORY: Patient states that she has a history of schizophrenia and was last hospitalized on the mental health unit in August 2019 and is currently on a court order for treatment. Patient is currently on paliperidone 9 mg daily at bedtime for psychosis and was previously on Invega Sustenna 234 mg IM monthly injection. Patient has been following up with [facility]. He denies any history of suicide attempts. PMH:denies ALLERGIES: as per EMR CHEMICAL DEPENDENCY HISTORY: as per HPI FAMILY PSYCHIATRIC/SUBSTANCE USE HISTORY: denies SOCIAL HISTORY: Patient was born and raised in [facility] and states that he completed his GED. 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 He is currently not and lives in an [facility] home and has no kids. MENTAL STATUS EXAM: General Appearance: Patient appears to be stated age is tall, alert, directable, and guarded. Patient appears to have poor hygiene and grooming. Wearing hospital gown. Behavior: Patient is seated without any agitated behavior. Responding to internal stimuli. Speech: Patient's speech is fluent and nonpressured. [place]. Mood/Affect: Patient reports their mood is "pretty good", affect is congruent and constricted. Suicidality/Homicidality: Patient denies having any homicidal ideation intent or plan. Denies any suicidal ideations intent or plan Perceptions: Patient denies any visual hallucinations and denies any auditory hallucinations Though content/process: Poverty of content and speech, concrete and guarded. Minimizes his symptoms and situation. Memory and concentration: AOX3, grossly intact for the purposes of this session. Can spell "WORLD" backwards Judgment and insight: poor/impulsive. STRENGTHS/WEAKNESSES: strength is that patient is resilient. Weakness is that patient has poor judgment and is impulsive INTELLECT: average IMPRESSIONS: Schizophrenia Nicotine dependence PLAN: -Patient is admitted under to MHU for stabilization of psychiatric symptoms and safety. Patient is currently under court order for treatment which expires December 19. -Medications : Will start patient on Invega 9 mg daily at bedtime for psychosis. We'll attempt to find out when patient last received his Invega Sustenna 234 mg injection and will transition patient back on long-acting injection to ensure compliance. -Ativan and Geodon PRN for agitation/aggression -Patient was informed of the risks, benefits and side effects of the medication and patient verbally consented to taking the medications. -Internal Medicine consult to perform medical evaluation and physical. -NRT - nicotine patch -SW on board for discharge planning. Encourage patient to participate in groups to work on coping skills. 11/11/19 11:02
[2019-11-11 19:42] LABS: Hemoglobin A1C 4.3 % (4.0-6.0)
[2019-11-11] MEDS: PALIPERIDONE 3 MG TAB.ER.24 PO SCH (20:45)
[2019-11-12] MEDS: NICOTINE 14MG/24HR PATCH TRANSDERM SCH (08:05)
--- NOTE | 2019-11-12 09:43 | P.PN ---
Progress Note - Text Progress Note Date: 11/12/19 Interval History: Patient was seen lying down in his bed in his room and was directable and agre eable to speak with jingle writer in the office. Patient continues to have poor hygiene and grooming continues to be concrete with poverty of content in his speech. He denied any overnight complaints and states that he slept well throughout the night. He states that he has been going to groups however was guarded about the content of the group and what he is learning from it. Patient does not appear to be responding to internal stimuli today. He states that he has fair energy and fair appetite at this time. He did not endorse any paranoia. He states his mood is "really good". Denies any anxiety. At this time patient denies any suicidal or homical ideations, intent or plan. Patient denies any auditory, visual hallucinations and denies any paranoia or delusions. Patient denies any side effects from the medications and has been compliant with meds. Mental Status Exam: General Appearance: Patient appears to be stated age is tall, alert, directable, and guarded. Patient appears to have poor hygiene and grooming. Wearing hospital gown. Behavior: Patient is seated without any agitated behavior. Speech: Patient's speech is fluent and nonpressured. [place]. Mood/Affect: Patient reports their mood is "pretty good", affect is congruent and constricted. Suicidality/Homicidality: Patient denies having any homicidal ideation intent or plan. Denies any suicidal ideations intent or plan Perceptions: Patient denies any visual hallucinations and denies any auditory hallucinations Though content/process: Poverty of content and speech, concrete and guarded. Memory and concentration: AOX3, grossly intact for the purposes of this session. Can spell "WORLD" backwards Judgment and insight: poor/impulsive. Assessment Schizophrenia Nicotine dependence Plan: -Patient is admitted under to M[facility] for stabilization of psychiatric symptoms and safety. Patient is currently under court order for treatment which expires December 19. -Medications : Will start patient on Invega 9 mg daily at bedtime for psychosis. Will transition patient back on long-acting injection to ensure compliance once patient is stabilized. As per [facility] records, patient last received his 234 mg monthly injection on 09/28/2019. -Ativan and Geodon PRN for agitation/aggression -Patient was informed of the risks, benefits and side effects of the medication and patient verbally consented to taking the medications. Patient signed medication consent today. -NRT - nicotine patch -SW on board for discharge planning. Encourage patient to participate in groups to work on coping skills. Likely discharge early next week once patient is transition onto long-acting injection and patient is found a AFC.
[2019-11-12] MEDS: PALIPERIDONE 3 MG TAB.ER.24 PO SCH (20:47)
[2019-11-13] MEDS: NICOTINE 14MG/24HR PATCH TRANSDERM SCH ×2 (09:38→13:12)
--- NOTE | 2019-11-13 11:59 | P.PN ---
Progress Note - Text Progress Note Date: 11/13/19 Interval history: Patient seen in [facility]. He is agreeable to come to the interview room. Relays that he slept about 5 or 6 hours last night. His appetite seems to be doing fine. He did take isn't they'll last night, denies any adverse side effects. Mental status exam: He is agreeable to come to the interview room. He describes his mood is doing pretty well. He denies any thoughts of harm to self or others. He does not report any auditory or visual hallucinations. He does not show any agitation. He does not make any anil delusional statements. Her speech is not rapid or pressured. Plan: Patient be maintained on current psychotropic medication regimen. Continue to monitor for any medication side effects and monitor his ongoing response to treatment.
[2019-11-13] MEDS: PALIPERIDONE 3 MG TAB.ER.24 PO SCH (20:13)
[2019-11-14] MEDS: NICOTINE 14MG/24HR PATCH TRANSDERM SCH (09:40)
--- NOTE | 2019-11-14 14:06 | P.PN ---
Progress Note - Text Progress Note Date: 11/14/19 Interval history: Patient is seen in [facility] again today. He was found in the group and was agreeable to come to the interview room. He states he is taking his psychotropic medication and denies any adverse side effects. His appetite has been good he says he slept about 7 hours last night. He is attending some groups. Mental status exam: He is alert and cooperative with the interview. Her speech is fluent, not rapid or pressured. He relates that his thoughts feel clearer today. He denies any hallucinations and denies any thoughts of harm to self or others. He does not show any agitation. Regarding mood he is not displaying any manic symptoms, does not complain of any significant depression. Plan: Patient be maintained on current psychotropic medication regimen. Continue to monitor for any medication side effects and monitor his ongoing response to treatment.
[2019-11-14] MEDS: PALIPERIDONE 3 MG TAB.ER.24 PO SCH (21:03)
[2019-11-15] MEDS: NICOTINE 14MG/24HR PATCH TRANSDERM SCH (08:36)
[2019-11-15] MEDS ORDERED: PALIPERIDONE IM 156 MG/ML SYG IM STA (10:00)
--- NOTE | 2019-11-15 10:05 | P.PN ---
Progress Note - Text Progress Note Date: 11/15/19 Interval History: Patient was seen lying down in his bed in his room and was directable and agre eable to speak with sports writer in the office. Patient continues to have poor hygiene and grooming however stated that he has been taking showers every night. Patient continues to be concrete and have poverty of content/speech. He denied any overnight complaints and states that he slept well throughout the night and over the weekend and states that "I'm feeling good" and also "I can't complain". He states that he has been going to groups approximately 2 a day. Patient does not appear to be responding to internal stimuli during the interview and was more cooperative and appropriate. He states that he has fair energy and fair appetite at this time. He denies any depression at this time and Denies any anxiety. At this time patient denies any suicidal or homical ideations, intent or plan. Patient denies any auditory, visual hallucinations and denies any paranoia or delusions. Patient denies any side effects from the medications and has been compliant with meds. Patient is agreeable to continue on with Invega Sustenna long-acting injection first dose to be given today. Mental Status Exam: General Appearance: Patient appears to be stated age is tall, alert, directable, and guarded. Patient appears to have poor hygiene and grooming. Wearing hospital gown. Behavior: Patient is seated without any agitated behavior. [place] and guarded. Speech: Patient's speech is fluent and nonpressured. [place]. Mood/Affect: Patient reports their mood is "good", affect is congruent Suicidality/Homicidality: Patient denies having any homicidal ideation intent or plan. Denies any suicidal ideations intent or plan Perceptions: Patient denies any visual hallucinations and denies any auditory hallucinations Though content/process: Poverty of content and speech, concrete and guarded. Do es not endorse any paranoia or delusions. Memory and concentration: AOX3, grossly intact for the purposes of this session. Can spell "WORLD" backwards Judgment and insight: Chronically poor/impulsive, mildly improving. Assessment Schizophrenia Nicotine dependence Plan: -Patient is admitted under to MHU for stabilization of psychiatric symptoms and safety. Patient is currently under court order for treatment which expires December 19. -Medications : Will continue with Invega 9 mg daily at bedtime for psychosis. As per [facility] records, patient last received his 234 mg monthly injection on 09/28/2019 . Patient to receive Invega Sustenna 156 mg IM injection today and will receive his next injection of 156 mg likely by Friday before discharge. -Ativan and Geodon PRN for agitation/aggression -Patient was informed of the risks, benefits and side effects of the medication and patient verbally consented to taking the medications. Patient signed medication consent and placed in chart. -NRT - nicotine patch -SW on board for discharge planning. Encourage patient to participate in groups to work on coping skills. Likely discharge late this week after receiving his second long-acting injection and will go back to [facility] home.
[2019-11-15] MEDS: PALIPERIDONE 3 MG TAB.ER.24 PO SCH (20:50)
[2019-11-16 06:42] VITALS: RESP 16
[2019-11-16] MEDS: NICOTINE 14MG/24HR PATCH TRANSDERM SCH (08:13)
--- NOTE | 2019-11-16 09:53 | P.PN ---
Progress Note - Text Progress Note Date: 11/16/19 Interval History: Patient was seen lying down in his bed this morning and was directable and agr eeable to speak with radio news writer in the office. Patient continues to display poor hygiene and grooming however was cooperative with the radio news writer and answered all questions appropriately. Patient continues to be concrete and have poverty of content/speech and did not endorse any overnight complaints. He states that he is feeling "pretty good" and did not elaborate much on his mood denied any depression and anxiety at this time. He states that he has been going to groups however did not elaborate on the groups and what he has been learning. Patient does not appear to be responding to internal stimuli today. He states that he has fair energy and fair appetite at this time. Patient was focused on discharge and asked when he can be released from the hospital. Patient received and tolerated his Invega Sustenna dose yesterday well and is agreeable to have the second dose on Friday morning. At this time patient denies any suicidal or homical ideations, intent or plan. Patient denies any auditory, visual hallucinations and denies any paranoia or delusions. Patient denies any side effects from the medications and has been compliant with meds. Mental Status Exam: General Appearance: Patient appears to be stated age is tall, alert, directable, and guarded. Patient appears to have poor hygiene and grooming. Wearing street clothing. Behavior: Patient is seated without any agitated behavior. [place] and guarded. Speech: Patient's speech is fluent and nonpressured. [place], poverty of content. Mood/Affect: Patient reports their mood is "pretty good", affect is congruent and constricted. Suicidality/Homicidality: Patient denies having any homicidal ideation intent or plan. Denies any suicidal ideations intent or plan Perceptions: Patient denies any visual hallucinations and denies any auditory hallucinations Though content/process: Poverty of content and speech, concrete and guarded. Does not endorse any paranoia or delusions. Memory and concentration: AOX3, grossly intact for the purposes of this session. Can spell "WORLD" backwards Judgment and insight: Chronically poor/impulsive, mildly improving. Assessment Schizophrenia Nicotine dependence Plan: -Patient is admitted under to MHU for stabilization of psychiatric symptoms and safety. Patient is currently under court order for treatment which expires December 19. -Medications : Will decrease Invega 6 mg daily at bedtime for psychosis. As per [facility] records, patient last received his 234 mg monthly injection on 09/28/2019. Patient to received Invega Sustenna 156 mg IM injection on 11/15/2019 and tolerated it well and will receive his next injection of 156 mg on Friday morning prior to discharge. -Ativan and Geodon PRN for agitation/aggression -Patient signed medication consent and placed in chart. -NRT - nicotine patch - on board for discharge planning. Encourage patient to participate in groups to work on coping skills. Likely discharge late this week after receiving his second long-acting injection and will go back to [facility] home.
[2019-11-16] MEDS ORDERED: PALIPERIDONE 6 MG TAB.ER.24 PO SCH (21:00)
[2019-11-17] MEDS: NICOTINE 14MG/24HR PATCH TRANSDERM SCH (09:03)
--- NOTE | 2019-11-17 11:31 | P.PN ---
Progress Note - Text Progress Note Date: 11/17/19 Interval History: Patient was seen lying down in his bed this morning and did not want to get up out of bed this morning however was directable and agreeable to speak to her commercial real estate underwriter in his room. Patient continues to display poor hygiene and grooming however was cooperative with the interview. Patient answered questions appropriately. He states that he spoke with his parents and family yesterday over the phone however did not give much details about their conversation. He states that he has been feeling tired lately and remaining in his bed. Patient continues to be concrete and have poverty of content/speech. He did not endorse any overnight complaints. He states that he is feeling "ok and sleepy" and did not elaborate much on his mood. Patient continues to be agreeable to have the second dose on Friday morning prior to discharge. At this time patient denies any suicidal or homical ideations, intent or plan. Patient denies any auditory, visual hallucinations and denies any paranoia or delusions. Patient denies any side effects from the medications and has been compliant with meds. Mental Status Exam: General Appearance: Patient appears to be stated age is tall, lethargic, directable, and concrete. Patient appears to have poor hygiene and grooming. Wearing street clothing. Behavior: Patient is seated without any agitated behavior. [place] and guarded. Speech: Patient's speech is fluent and nonpressured. [place], poverty of content. Mood/Affect: Patient reports their mood is "okay and sleepy", affect is congruent and constricted. Suicidality/Homicidality: Patient denies having any homicidal ideation intent or plan. Denies any suicidal ideations intent or plan Perceptions: Patient denies any visual hallucinations and denies any auditory hallucinations Though content/process: Poverty of content and speech, concrete and guarded. Does not endorse any paranoia or delusions. Memory and concentration: AOX3, grossly intact for the purposes of this session. Can spell "WORLD" backwards Judgment and insight: Chronically poor/impulsive, mildly improving. Assessment Schizophrenia Nicotine dependence Plan: -Patient is admitted under to MHU for stabilization of psychiatric symptoms and safety. Patient is currently under court order for treatment which expires December 19. -Medications : Will decrease Invega 3 mg daily at bedtime for psychosis. As per [facility] records, patient last received his 234 mg monthly injection on 09/28/2019. Patient to received Invega Sustenna 156 mg IM injection on 11/15/2019 and tolerated it well and will receive his next injection of 156 mg on Friday morning prior to discharge. -Ativan and Martin PRN for agitation/aggression -Patient signed medication consent and placed in chart. -NRT - nicotine patch -SW on board for discharge planning. Encourage patient to participate in groups to work on coping skills. Likely discharge in 1-2 days after receiving his second long-acting injection and will go back to [facility] home.
[2019-11-17 12:59] VITALS: BMI 32.7
[2019-11-17] MEDS ORDERED: PALIPERIDONE 3 MG TAB.ER.24 PO SCH (21:00)
[2019-11-18] MEDS: NICOTINE 14MG/24HR PATCH TRANSDERM SCH (08:49)
--- NOTE | 2019-11-18 10:37 | P.PN ---
Progress Note - Text Progress Note Date: 11/18/19 Interval History: Patient was seen lying down in his bed this morning and did not want to get up out of bed this morning and preferred to speak to automatic typewriter inspector in his room. Patient states that he feels tired this morning however usually feels more energetic later on in the afternoon and claims that he's been coming out of his room. He states that he has been going to some groups and showed automatic typewriter inspector different activity sheets that he completed yesterday. Patient continues to display chronically poor hygiene and grooming. Patient answered questions appropriately however was concrete and have poverty of content. He states that his mood is "fine" and offered no overnight complaints. Patient continues to be agreeable to have the second dose on Friday morning prior to discharge. At this time patient denies any suicidal or homical ideations, intent or plan. Patient denies any auditory, visual hallucinations and denies any paranoia or delusions. Patient denies any side effects from the medications and has been compliant with meds. Mental Status Exam: General Appearance: Patient appears to be stated age is tall, directable, and concrete. Patient appears to have poor hygiene and grooming. Wearing street clothing. Behavior: Patient is seated without any agitated behavior. Speech: Patient's speech is fluent and nonpressured. [place], poverty of content. Mood/Affect: Patient reports their mood is "fine", affect is congruent and constricted. Suicidality/Homicidality: Patient denies having any homicidal ideation intent or plan. Denies any suicidal ideations intent or plan Perceptions: Patient denies any visual hallucinations and denies any auditory hallucinations Though content/process: Poverty of content and speech, concrete and guarded. Does not endorse any paranoia or delusions. Memory and concentration: AOX3, grossly intact for the purposes of this session. Can spell "WORLD" backwards Judgment and insight: Chronically poor, mildly improving. Assessment Schizophrenia Nicotine dependence Plan: -Patient is admitted under to MHU for stabilization of psychiatric symptoms and safety. Patient is currently under court order for treatment which expires December 19. -Medications : Will continue with Invega 3 mg daily at bedtime for psychosis. As per [facility] records, patient last received his 234 mg monthly injection on 09/28/2019. Patient to received Invega Sustenna 156 mg IM injection on 11/15/2019 and tolerated it well and will receive his next injection of 156 mg on Friday morning prior to discharge. -Ativan and Geodon PRN for agitation/aggression -Patient signed medication consent and placed in chart. -NRT - nicotine patch -SW on board for discharge planning. Encourage patient to participate in groups to work on coping skills. Likely discharge tomorrow after receiving his second long-acting injection and will go back to [facility] home.
[2019-11-19 07:05] VITALS: BP 107/68; PULSE 53
[2019-11-19] MEDS ORDERED: PALIPERIDONE IM 156 MG/ML SYG IM ONE (09:00)
[2019-11-19] MEDS: NICOTINE 14MG/24HR PATCH TRANSDERM SCH (09:37)
--- NOTE | 2019-11-19 10:02 | P.DS ---
Providers Date of admission: 11/10/19 15:39 Expected date of discharge: 11/19/19 Attending physician: Gene Mathews MD Consults: 11/10/19 16:37 Consult Physician Routine Consulting Provider: [facility] Consult Reason/Comments: H & P and medical care Do you want consulting provider notified?: Yes Primary care physician: Albert Delgado - Discharge Diagnosis(es) (1) Schizophrenia Current Visit: Yes Status: Acute Priority: High (2) Nicotine dependence Current Visit: Yes Status: Acute Priority: Low Hospital Course: Admission HPI: Patient is a 24-year-old male with a chronic history of schizophrenia who currently lives at an [facility] is not and has no kids and currently collects Social Security. Patient presented to the hospital yesterday was b rought in by police for allegedly threatening to kill staff at the [facility] home he was in. Patient is currently on a court order until 12/20/2019. As per [facility] records, states that patient has had an increase in paranoia and at risk behaviors and had left his [facility] home stole a bike and threatened to kill [facility] staff. Patient was seen this morning and was lying in his bed however was directable and agreeable to speak dreading the office. Patient denied any issues at the senior living and states that he does not know why he is not hospital. Patient appeared to have poor insight and judgment and was minimizing his symptoms. He had poor hygiene and grooming and a constricted affect. She states that the reason why he is in the hospital is "my meds are off" and spoke about being on Seroquel and paliperidone. He states that he used to receive a "Seroquel shot" however has not got it recently. He denied making any threats to the [facility] staff and states "I wouldn't hurt anybody". Patient appeared to be responding to internal stimuli during the interview and was concrete and had a poverty of content. He states his mood is "pretty good" and denied any problems with sleep or appetite. She states that he has been taking his medications at home. Patient denies any suicidal or homicidal ideations intent or plan. Patient did not endorse any paranoia at this time. At this time patient denies any auditory or visual hallucinations. Patient denies any flight of ideas racing thoughts and increased in goal directed behavior. Patient admits to using cigarettes daily and denies any other recreational drug use. He states that he used to occasionally drink alcohol. UDS was negative on admission. Hospital course: Upon admission to the unit patient was initially disheveled and guarded. Patient was however directable and agreeable to commence treatment. Patient got along well with other patients on the unit and followed unit protocol. Patient was currently on a court order for treatment which expires December 19. Patient was compliant with the medications and denied any side effects throughout hospital course. Patient was started on back on his paliperidone by mouth 9 mg daily at bedtime for psychosis as patient had missed his Invega Sustenna long-acting injection dose and his last dose was over 7 weeks ago. Patient was given Invega Sustenna 156 mg IM injection on 11/15/2019 and tolerated it well and received his second 156 mg injection on day of discharge 11/19/2019 and tolerated it well. Patient was fairly isolative on the unit however did at times engaged in therapy both group and individual. Patient was also seen by medical team for history and physical exam. Throughout the course of the hospitalization patient gradually improved with regards to mood, psychosis, sleep and became more future oriented with improved insight and judgment however this remains chronically limited/poor. On the day of discharge patient denied any suicidal or homicidal ideations intent or plan denied any auditory or visual hallucinations. Patient endorsed wanting to live for his health and family. The patient denied any access to guns or weapons. Patient denied any paranoia and did not endorse any delusions. Patient does not have a significant history of substance abuse however was counseled on abstaining from all substances including alcohol and marijuana. Patient was also counseled on the medications and need for regular compliance and was encouraged to follow-up with their outpatient appointment for mental health and also for primary care. Prior to discharge a family meeting will be arranged by social services analyst to answer any questions and ensure safety upon discharge. Mental status exam: General Appearance: Patient appears to be stated age is tall, alert, pleasant, and attempts to be cooperative however is for the most part constricted. Patient is in no acute distress and has improved hygiene and grooming Behavior: Patient is calmly seated without any agitated behavior. Attempts to be cooperative. Speech: Patient's speech is fluent and nonpressured. Poverty of content Mood/Affect: Patient reports their mood is "pretty good", affect is congruent and euthymic. Suicidality/Homicidality: Patient denies having any suicidal or homicidal ideation intent or plan. Perceptions: Patient denies any auditory or visual hallucinations. Though content/process: There is no evidence of any delusional thought content and thought process is linear and goal-directed. Poverty of content/concrete. Memory and concentration: AOX3, grossly intact for the purposes of this session. Can spell "WORLD" backwards correctly. Judgment and insight: improved with guarded prognosis Impression: Schizophrenia Nicotine dependence Plan: -Continue with discharge today as patient has improved and stabilized psychiatrically and is not currently an imminent threat to himself and/or others. -Continue medications: Patient was titrated off of his haloperidol and by mouth and will receive his next Invega Sustenna 234 mg IM on 12/17/2019 and monthly thereafter. -Patient was counseled on the need for medication compliance and appropriate follow-up at mental health and also primary care for medical issues. Patient verbalized understanding and agreed. -Social work to arrange for and conduct family meeting to ensure safety upon discharge and answer any questions/concerns. Social work also to arrange for patients follow up appointments with [facility] for psychiatric care along with follow up with primary care provider. -Patient to be discharged back to his [facility]. -Patient counseled on abstaining from recreational drugs and marijuana and alcohol. Was informed/educated on the adverse effects on their physical and mental health. Patient verbally agreed and understood. -Patient was instructed to return to the hospital or seek immediate medical care if their psychiatric or medical symptoms do worsen or reoccur. Allergies Allergy/AdvReac Type Severity Reaction Status Date / Time latex Allergy Rash/Hives Verified 11/10/19 13:26 Laboratory Results WBC 7.7 k/uL (3.8-10.6) 11/11/19 07:32 RBC 4.95 m/uL (4.30-5.90) 11/11/19 07:32 Hgb 15.7 gm/dL (13.0-17.5) 11/11/19 07:32 Hct 45.8 % (39.0-53.0) 11/11/19 07:32 MCV 92.5 fL (80.0-100.0) 11/11/19 07:32 MCH 31.7 pg (25.0-35.0) 11/11/19 07:32 MCHC 34.3 g/dL (31.0-37.0) 11/11/19 07:32 RDW 12.4 % (11.5-15.5) 11/11/19 07:32 Plt Count 179 k/uL (150-450) 11/11/19 07:32 Neutrophils % 74 % 11/11/19 07:32 Lymphocytes % 13 % 11/11/19 07:32 Monocytes % 6 % 11/11/19 07:32 Eosinophils % 5 % 11/11/19 07:32 Basophils % 1 % 11/11/19 07:32 Neutrophils # 5.7 k/uL (1.3-7.7) 11/11/19 07:32 Lymphocytes # 1.0 k/uL (1.0-4.8) 11/11/19 07:32 Monocytes # 0.5 k/uL (0-1.0) 11/11/19 07:32 Eosinophils # 0.4 k/uL (0-0.7) 11/11/19 07:32 Basophils # 0.0 k/uL (0-0.2) 11/11/19 07:32 Sodium 138 mmol/L (137-145) 11/11/19 07:32 Potassium 4.2 mmol/L (3.5-5.1) 11/11/19 07:32 Chloride 105 mmol/L (98-107) 11/11/19 07:32 Carbon Dioxide 26 mmol/L (22-30) 11/11/19 07:32 Anion Gap 7 mmol/L 11/11/19 07:32 BUN 11 mg/dL (9-20) 11/11/19 07:32 Creatinine 1.11 mg/dL (0.66-1.25) 11/11/19 07:32 Est GFR (CKD-EPI)AfAm >90 (>60 ml/min/1.73 sqM) 11/11/19 07:32 Est GFR (CKD-EPI)NonAf >90 (>60 ml/min/1.73 sqM) 11/11/19 07:32 Glucose 85 mg/dL (74-99) 11/11/19 07:[address] Glu mg/dL 77 11/11/19 07:32 Hemoglobin A1c 4.3 % (4.0-6.0) 11/11/19 07:32 Calcium 9.0 mg/dL (8.4-10.2) 11/11/19 07:32 Total Bilirubin 0.6 mg/dL (0.2-1.3) 11/11/19 07:32 AST 19 U/L (17-59) 11/11/19 07:32 ALT 8 U/L (4-49) 11/11/19 07:32 Alkaline Phosphatase 43 U/L (38-126) 11/11/19 07:32 Total Protein 6.5 g/dL (6.3-8.2) 11/11/19 07:32 Albumin 4.1 g/dL (3.5-5.0) 11/11/19 07:32 Triglycerides 99 mg/dL (<150) 11/11/19 07:32 Cholesterol 129 mg/dL (<200) 11/11/19 07:32 LDL Cholesterol, Calc 62 mg/dL (0-99) 11/11/19 07:32 HDL Cholesterol 47 mg/dL (40-60) 11/11/19 07:32 TSH 0.595 mIU/L (0.465-4.680) 11/11/19 07:32 Urine Opiates Screen Not Detected (NotDetected) 11/10/19 14:37 Ur Oxycodone Screen Not Detected (NotDetected) 11/10/19 14:37 Urine Methadone Screen Not Detected (NotDetected) 11/10/19 14:37 Ur Propoxyphene Screen Not Detected (NotDetected) 11/10/19 14:37 Ur Barbiturates Screen Not Detected (NotDetected) 11/10/19 14:37 U Tricyclic Antidepress Not Detected (NotDetected) 11/10/19 14:37 Ur Phencyclidine Scrn Not Detected (NotDetected) 11/10/19 14:37 Ur Amphetamines Screen Not Detected (NotDetected) 11/10/19 14:37 U Methamphetamines Scrn Not Detected (NotDetected) 11/10/19 14:37 U Benzodiazepines Scrn Not Detected (NotDetected) 11/10/19 14:37 Urine Cocaine Screen Not Detected (NotDetected) 11/10/19 14:37 U Marijuana (THC) Screen Not Detected (NotDetected) 11/10/19 14:37 Vital Signs Temp 98.4 F 11/19/19 06:45 Pulse 53 L 11/19/19 06:45 Resp 16 11/19/19 06:45 BP 107/68 11/19/19 06:45 Pulse Ox 97 11/19/19 06:45 Patient Condition at Discharge: Stable Plan - Discharge Summary Discharge Rx Participant: No New Discharge Prescriptions: New Nicotine 14Mg/24Hr Patch [Habitrol] 1 patch TRANSDERM DAILY 14 Days patch Paliperidone IM [Invega Sustenna] 234 mg IM DIRECTED #1 syr Discontinued Paliperidone [Invega] 9 mg PO HS Discharge Medication List Nicotine 14Mg/24Hr Patch [Habitrol] 1 patch TRANSDERM DAILY 14 Days patch 11/19/19 [Rx] Paliperidone IM [Invega Sustenna] 234 mg IM DIRECTED #1 syr 11/19/19 [Rx] Follow up Appointment(s)/Referral(s): [facility] [NON-STAFF] - 1 Week Patient Instructions/Handouts: Schizophrenia (DC) Activity/Diet/Wound Care/Special Instructions: Activity and diet as tolerated. Avoid the use of street drugs and alcohol. Take all medications as prescribed. When you are in need of refills on your medications please contact your medical provider and/or outpatient psychiatrist to have this done. Please go to scheduled outpatient appointment for aftercare treatment. If symptoms return or become worse, call the crisis line at and/or go to the nearest emergency room for evaluation. Discharge Disposition: HOME SELF-CARE
[2019-11-19 12:22] VITALS: TEMP 98.1
== END 2019-11-19 14:58 | disposition home or self-care (01) | DRG 885 ==
LOC: EC 12:20 → 3MHU 15:39
PROVIDERS: ADMIT Psychiatry & Neurology Psychiatry; ATTEND Psychiatry & Neurology Psychiatry
DX: F20.9 Schizophrenia, unspecified (principal); R45.851 Suicidal ideations; F17.210 Nicotine dependence, cigarettes, uncomplicated; F32.9 Major depressive disorder, single episode, unspecified; Z91.040 Latex allergy status
CPT/HCPCS: 80053; 80061; 80306; 82075; 83036; 84443; 85025; 99285

== ENCOUNTER 2023-04-03 13:29 | Emergency (ER) | payer MEDICARE, OTHER ==
[2023-04-03 13:40] VITALS: RESP 18
[2023-04-03] MEDS ORDERED: SODIUM CHLORIDE 0.9% 1,000 ML IV STA (13:46)
--- NOTE | 2023-04-03 13:53 | ED ---
General Adult HPI - General Chief complaint: Overdose Stated complaint: OD on cough meds Time Seen by Provider: 04/03/23 13:35 Source: patient, EMS, RN notes reviewed, old records reviewed Mode of arrival: EMS Limitations: no limitations - History of Present Illness Initial comments: This is a 28-year-old male who states he took 16 cold medicines pills. Patient comes from a usp and it is not clear why he took him when you ask him a question he answers differently every time. Patient cannot give us a time at which she took the pills. Patient denies wanting to kill him so. Patient states he feels great and states he has no symptoms whatsoever. - Related Data Previous Rx's Medication Instructions Recorded Nicotine 14Mg/24Hr Patch [Habitrol] 1 patch TRANSDERM DAILY 14 Days 11/19/19 patch Paliperidone IM [Invega Sustenna] 234 mg IM DIRECTED #1 syr 11/19/19 Allergies Allergy/AdvReac Type Severity Reaction Status Date / Time latex Allergy Rash/Hives Verified 04/03/23 13:41 Review of Systems ROS Statement: Those systems with pertinent positive or pertinent negative responses have been documented in the HPI. ROS Other: All systems not noted in ROS Statement are negative. Past Medical History Past Medical History: No Reported History History of Any Multi-Drug Resistant Organisms: None Reported Past Surgical History: Orthopedic Surgery Additional Past Surgical History / Comment(s): carpal tunnel Past Psychological History: Depression Past Alcohol Use History: Occasional Past Drug Use History: Heroin, Marijuana, Methamphetamine - Past Family History family Family Medical History: No Reported History General Exam - General Exam Comments Initial Comments: GENERAL: Patient is well-developed and well-nourished. Patient is nontoxic and well- hydrated and is in no acute distress. ENT: Neck is soft and supple. No significant lymphadenopathy is noted. Oropharynx is clear. Moist mucous membranes. Neck has full range of motion without eliciting any pain. EYES: The sclera were anicteric and conjunctiva were pink and moist. Extraocular movements were intact and pupils were equal round and reactive to light. Eyelids were unremarkable. PULMONARY: Unlabored respirations. Good breath sounds bilaterally. No audible rales rhonchi or wheezing was noted. CARDIOVASCULAR: Patient is tachycardic at about 120 beats a minute ABDOMEN: Soft and nontender with normal bowel sounds. SKIN: Skin is clear with no lesions or rashes and otherwise unremarkable. NEUROLOGIC: Patient is alert and oriented 2. Cranial nerves II through XII are grossly in tact. Motor and sensory are also intact. Normal speech, volume and content. Symmetrical smile. MUSCULOSKELETAL: Normal extremities with adequate strength and full range of motion. LYMPHATICS: No significant lymphadenopathy is noted PSYCHIATRIC: Difficult to assess since he's not really making sense when answering most questions. Patient is a usp I do not know his baseline Limitations: no limitations Course Vital Signs 04/03/23 04/03/23 13:32 17:47 Temperature 98.6 F 97.8 F Pulse Rate 138 H 104 H Respiratory 18 18 Rate Blood Pressure 139/85 134/80 O2 Sat by Pulse 98 98 Oximetry Medical Decision Making - Medical Decision Making EKG is interpreted by myself. EKG shows a sinus tachycardia at 119 bpm [place] interval is 139 QRS is 90 QT interval is 298 QTC is 369 per patient's EKG shows no ST segment elevation or depression. Repeat EKG was done after the patient had been here for an half hours. EKG was interpreted by myself shows a sinus rhythm at 90 bpm AZ interval 292 is 98 QT interval 3.7 QTC is 394. Patient's EKG shows no ST segment elevation or depression. Was pt. sent in by a medical professional or institution (, [facility], HUMAN SERVICE COORDINATOR, urgent care, hospital, or jail...) When possible be specific @ -Was sent to the emergency department by his usp Did you speak to anyone other than the patient for history (EMS, parent, family, police, friend...)? What history was obtained from this source @ -[No] Did you review nursing and triage notes (agree or disagree)? Why? @ -[I reviewed and agree with nursing and triage notes] Were old charts reviewed (outside hosp., previous admission, EMS record, old EKG, old radiological studies, urgent care reports/EKG's, jail records)? Report findings @ -[No old charts were reviewed] Differential Diagnosis (chest pain, altered mental status, abdominal pain women, abdominal pain men, vaginal bleeding, weakness, fever, dyspnea, syncope, headache, dizziness, GI bleed, back pain, seizure, CVA, palpatations, mental health, musculoskeletal)? @ -Differential Mental Health Depression, anxiety, bipolar, psychosis, schizophrenia, borderline personality, situational depression, adjustment disorder, behavioral disorder, brain tumor, malingering, substance abuse, encephalopathy, medication reaction, overdose, dementia, hypothyroidism, degenerative neurologic disorder, lupus.... This is not meant to be all-inclusive list EKG interpreted by me (3pts min.). @ -[As above] X-rays interpreted by me (1pt min.). @ -[None done] CT interpreted by me (1pt min.). @ -[None done] U/S interpreted by me (1pt. min.). @ -[None done] What testing was considered but not performed or refused? (CT, X-rays, U/S, labs)? Why? @ -[None] What meds were considered but not given or refused? Why? @ -[None] Did you discuss the management of the patient with other professionals (professionals i.e. , PA, HUMAN SERVICE COORDINATOR, lab, RT, psych nurse, director of social services, pastry finisher, teacher, legal officer, case worker)? Give summary @ -[No] Was smoking cessation discussed for >3mins.? @ -[No] Was critical care preformed (if so, how long)? @ -[No] Were there social determinants of health that impacted care today? How? (Homelessness, low income, unemployed, alcoholism, drug addiction, transportation, low edu. Level, literacy, decrease access to med. care, alf, rehab)? @ -[No] Was there de-escalation of care discussed even if they declined (Discuss DNR or withdrawal of care, Hospice)? DNR status @ -[No] What co-morbidities impacted this encounter? (DM, HTN, Smoking, COPD, CAD, Cancer, CVA, ARF, Chemo, Hep., AIDS, mental health diagnosis, sleep apnea, morbid obesity)? @ -[None] Was patient admitted / discharged? Hospital course, mention meds given and route, prescriptions, significant lab abnormalities, going to OR and other pertinent info. @ -Patient was without symptoms aside from tachycardia in the emergency d epartment patient had no complaints throughout his ED stay. Patient's heart rate eventually slowed down was under 100 patient was in the ER almost 5 hours and it was at this time the patient will be discharged home with instructions on when to follow-up. Undiagnosed new problem with uncertain prognosis? @ -[No] Drug Therapy requiring intensive monitoring for toxicity (Heparin, Nitro, Insulin, Cardizem)? @ -[No] Were any procedures done? @ -[No] Diagnosis/symptom? @ -Overdose cold medication Acute, or Chronic, or Acute on Chronic? @ -Acute Uncomplicated (without systemic symptoms) or Complicated (systemic symptoms)? @ -Complicated Side effects of treatment? @ -[No] Exacerbation, Progression, or Severe Exacerbation? @ -[No] Poses a threat to life or bodily function? How? (Chest pain, [place], [place], pneumonia, PE, COPD, DKA, ARF, appy, cholecystitis, CVA, Diverticulitis, Homicidal, Suicidal, threat to staff... and all critical care pts) @ -This could lead to . - Lab Data Result diagrams: 04/03/23 14:30 04/03/23 14:30 Lab Results 04/03/23 04/03/23 04/03/23 Range/Units 14:30 14:30 14:55 WBC 5.9 (3.8-10.6) k/uL RBC 4.87 (4.30-5.90) m/uL Hgb 15.7 (13.0-17.5) gm/dL Hct 44.8 (39.0-53.0) % MCV 91.8 (80.0-100.0) fL MCH 32.3 (25.0-35.0) pg MCHC 35.2 (31.0-37.0) g/dL RDW 12.2 (11.5-15.5) % Plt Count 151 (150-450) k/uL MPV 7.0 Neutrophils % 74 % Lymphocytes % 16 % Monocytes % 5 % Eosinophils % 3 % Basophils % 0 % Neutrophils # 4.4 (1.3-7.7) k/uL Lymphocytes # 1.0 (1.0-4.8) k/uL Monocytes # 0.3 (0-1.0) k/uL Eosinophils # 0.2 (0-0.7) k/uL Basophils # 0.0 (0-0.2) k/uL Sodium 140 (137-145) mmol/L Potassium 3.8 (3.5-5.1) mmol/L Chloride 106 (98-107) mmol/L Carbon Dioxide 25 (22-30) mmol/L Anion Gap 9 mmol/L BUN 11 (9-20) mg/dL Creatinine 0.97 (0.66-1.25) mg/dL Est GFR (CKD-EPI)AfAm >90 (>60 ml/min/1.73 sqM) Est GFR (CKD-EPI)NonAf >90 (>60 ml/min/1.73 sqM) Glucose 97 (74-99) mg/dL Calcium 9.3 (8.4-10.2) mg/dL Total Bilirubin 0.3 (0.2-1.3) mg/dL AST 24 (17-59) U/L ALT 15 (4-49) U/L Alkaline Phosphatase 46 (38-126) U/L Total Protein 7.2 (6.3-8.2) g/dL Albumin 4.5 (3.5-5.0) g/dL Salicylates <1.0 mg/dL Urine Opiates Screen Not Detected (NotDetected) Ur Oxycodone Screen Not Detected (NotDetected) Urine Methadone Screen Not Detected (NotDetected) Ur Propoxyphene Screen Not Detected (NotDetected) Acetaminophen <10.0 ug/mL Ur Barbiturates Screen Not Detected (NotDetected) Valproic Acid 54.4 ug/mL U Tricyclic Antidepress Not Detected (NotDetected) Ur Phencyclidine Scrn Not Detected (NotDetected) Ur Amphetamines Screen Not Detected (NotDetected) U Methamphetamines Scrn Not Detected (NotDetected) U Benzodiazepines Scrn Detected H (NotDetected) Urine Cocaine Screen Not Detected (NotDetected) U Marijuana (THC) Screen Detected H (NotDetected) Serum Alcohol <10 mg/dL 04/03/23 Range/Units 16:49 WBC (3.8-10.6) k/uL RBC (4.30-5.90) m/uL Hgb (13.0-17.5) gm/dL Hct (39.0-53.0) % MCV (80.0-100.0) fL MCH (25.0-35.0) pg MCHC (31.0-37.0) g/dL RDW (11.5-15.5) % Plt Count (150-450) k/uL MPV Neutrophils % % Lymphocytes % % Monocytes % % Eosinophils % % Basophils % % Neutrophils # (1.3-7.7) k/uL Lymphocytes # (1.0-4.8) k/uL Monocytes # (0-1.0) k/uL Eosinophils # (0-0.7) k/uL Basophils # (0-0.2) k/uL Sodium (137-145) mmol/L Potassium (3.5-5.1) mmol/L Chloride (98-107) mmol/L Carbon Dioxide (22-30) mmol/L Anion Gap mmol/L BUN (9-20) mg/dL Creatinine (0.66-1.25) mg/dL Est GFR (CKD-EPI)AfAm (>60 ml/min/1.73 sqM) Est GFR (CKD-EPI)NonAf (>60 ml/min/1.73 sqM) Glucose (74-99) mg/dL Calcium (8.4-10.2) mg/dL Total Bilirubin (0.2-1.3) mg/dL AST (17-59) U/L ALT (4-49) U/L Alkaline Phosphatase (38-126) U/L Total Protein (6.3-8.2) g/dL Albumin (3.5-5.0) g/dL Salicylates mg/dL Urine Opiates Screen (NotDetected) Ur Oxycodone Screen (NotDetected) Urine Methadone Screen (NotDetected) Ur Propoxyphene Screen (NotDetected) Acetaminophen ug/mL Ur Barbiturates Screen (NotDetected) Valproic Acid 51.6 ug/mL U Tricyclic Antidepress (NotDetected) Ur Phencyclidine Scrn (NotDetected) Ur Amphetamines Screen (NotDetected) U Methamphetamines Scrn (NotDetected) U Benzodiazepines Scrn (NotDetected) Urine Cocaine Screen (NotDetected) U Marijuana (THC) Screen (NotDetected) Serum Alcohol mg/dL Disposition Clinical Impression: Overdose of common cold drug Disposition: HOME SELF-CARE Condition: Good Instructions (If sedation given, give patient instructions): Adult Overdose (ED) Is patient prescribed a controlled substance at d/c from ED?: No Referrals: Albert Delgado DO [Primary Care Provider] - 1-2 days Time of Disposition: 18:20
[2023-04-03 14:42] LABS: Basophils % (A) 0 %; Eosinophils # (A) 0.2 k/uL (0-0.7); Eosinophils % (A) 3 %; HCT 44.8 % (39.0-53.0); HGB 15.7 gm/dL (13.0-17.5); Lymphocytes % (A) 16 %; MCH 32.3 pg (25.0-35.0); MCHC 35.2 g/dL (31.0-37.0); MCV 91.8 fL (80.0-100.0); Monocytes # (A) 0.3 k/uL (0-1.0); Monocytes % (A) 5 %; Neutrophils # (A) 4.4 k/uL (1.3-7.7); Neutrophils % (A) 74 %; Platelet Count 151 k/uL (150-450); RBC 4.87 m/uL (4.30-5.90); RDW 12.2 % (11.5-15.5); WBC 5.9 k/uL (3.8-10.6)
[2023-04-03 15:01] LABS: ALT 15 U/L (4-49); AST 24 U/L (17-59); Acetaminophen <10.0 ug/mL; African American GFR (CKD) >90 (>60 ml/min/1.73 sqM); Albumin 4.5 g/dL (3.5-5.0); Alcohol <10 mg/dL; Alkaline Phosphatase 46 U/L (38-126); Anion Gap 9 mmol/L; Blood Urea Nitrogen 11 mg/dL (9-20); Calcium 9.3 mg/dL (8.4-10.2); Carbon Dioxide 25 mmol/L (22-30); Chloride 106 mmol/L (98-107); Glucose 97 mg/dL (74-99); Non-African American GFR(CKD) >90 (>60 ml/min/1.73 sqM); Potassium 3.8 mmol/L (3.5-5.1); Salicylate <1.0 mg/dL; Sodium 140 mmol/L (137-145); Total Bilirubin 0.3 mg/dL (0.2-1.3); Total Protein 7.2 g/dL (6.3-8.2)
[2023-04-03 15:06] LABS: Valproic Acid (Depakene) 54.4 ug/mL
[2023-04-03 15:19] LABS: Amphetamine Screen,Urine Not Detected (NotDetected); Barbiturate Screen,Urine Not Detected (NotDetected); Benzodiazepines Screen,Urine Detected (NotDetected); Cocaine Screen,Urine Not Detected (NotDetected); Methadone Screen, Urine Not Detected (NotDetected); Opiate Screen,Urine Not Detected (NotDetected); Oxycodone Screen, Urine Not Detected (NotDetected); Phencyclidine Screen,Urine Not Detected (NotDetected); Tricyclic Antidepressant,Urine Not Detected (NotDetected); Urn Cannabinoid Scrn Detected (NotDetected)
[2023-04-03 17:48] VITALS: BP 134/80; PULSE 104; TEMP 97.8
== END 2023-04-03 19:00 | disposition home or self-care (01) ==
LOC: EC 13:29 → EEVIPCON 13:29 → EC 19:00
DX: T48.5X1A Poisoning by other anti-common-cold drugs, accidental (unintentional), initial encounter (principal); J00 Acute nasopharyngitis [common cold]; F12.90 Cannabis use, unspecified, uncomplicated; Z91.040 Latex allergy status; Z86.59 Personal history of other mental and behavioral disorders
CPT/HCPCS: 36415; 93005; 80164; 80053; 85025; 80306; 80143; 80179; 99284; 96360; G0480; 80320

== ENCOUNTER 2023-10-13 16:52 | Emergency (ER) | payer MEDICARE, OTHER ==
--- NOTE | 2023-10-13 17:05 | ED ---
Psych HPI - General Source: patient, family, EMS, RN notes reviewed Mode of arrival: EMS Limitations: no limitations <Stefania Swartz - Last Filed: 10/13/23 17:10> - History of Present Illness MD Complaint: altered mental status, other (Close this) -: hour(s) Associated Psychiatric Symptoms: homicidal ideation, racing thoughts, auditory hallucinations, visual hallucinations Quality: getting worse Worsens With: none Associated Symptoms: denies other symptoms Treatments Prior to Arrival: placed on mental health hold <Darrel Leonard - Last Filed: 10/22/23 23:56> - General Chief Complaint: Psychiatric Symptoms Stated Complaint: Mental Health -Petitioned Time Seen by Provider: 10/13/23 17:03 - History of Present Illness Initial Comments: Quick Note: This is a 28 year old male who presents to the emergency department for psychiatric evalution. Patient's family members state that he has had anger outbursts at home and said that he was God. Patient is petitioned by family members for his behaviors. Denies any SI/HI. (Stefania Swartz) This is a 28-year-old male for psychiatric evaluation patient is under petition is having acute psychosis, schizophrenic episode (Darrel Leonard) - Related Data Home Medications Medication Instructions Recorded Confirmed Divalproex Sodium [Depakote] 1,500 mg PO DAILY@1000 10/13/23 10/13/23 LORazepam [Ativan] 1 mg PO BID@1000,2200 10/13/23 10/13/23 Paliperidone IM [Invega Sustenna] 234 mg IM Q28D 10/13/23 10/13/23 Allergies Allergy/AdvReac Type Severity Reaction Status Date / Time latex Allergy Rash/Hives Verified 10/13/23 21:49 Review of Systems ROS Other: All systems not noted in ROS Statement are negative. <Stefania Swartz - Last Filed: 10/13/23 17:10> ROS Other: All systems not noted in ROS Statement are negative. <Darrel Leonard - Last Filed: 10/22/23 23:56> ROS Statement: Those systems with pertinent positive or pertinent negative responses have been documented in the HPI. Past Medical History Past Medical History: No Reported History History of Any Multi-Drug Resistant Organisms: None Reported Past Surgical History: Orthopedic Surgery Additional Past Surgical History / Comment(s): carpal tunnel Past Psychological History: Depression Past Alcohol Use History: Occasional Past Drug Use History: Heroin, Marijuana, Methamphetamine - Past Family History family Family Medical History: No Reported History <Stefania Swartz - Last Filed: 10/13/23 17:10> General Exam <Stefania Swarzt - Last Filed: 10/13/23 17:10> General appearance: alert, in no apparent distress Head exam: Present: atraumatic, normocephalic, normal inspection Eye exam: Present: normal appearance, PERRL, EOMI. Absent: scleral icterus, conjunctival injection, periorbital swelling ENT exam: Present: normal exam, mucous membranes moist Neck exam: Present: normal inspection. Absent: tenderness, meningismus, lymphadenopathy Respiratory exam: Present: normal lung sounds bilaterally. Absent: respiratory distress, wheezes, rales, rhonchi, stridor Cardiovascular Exam: Present: regular rate, normal rhythm, normal heart sounds. Absent: systolic murmur, diastolic murmur, rubs, gallop, clicks GI/Abdominal exam: Present: soft, normal bowel sounds. Absent: distended, tenderness, guarding, rebound, rigid Extremities exam: Present: normal inspection, full ROM, normal capillary refill. Absent: tenderness, pedal edema, joint swelling, calf tenderness Back exam: Present: normal inspection Neurological exam: Present: alert, oriented X3, CN II-XII intact Psychiatric exam: Present: normal affect, normal mood Skin exam: Present: warm, dry, intact, normal color. Absent: rash <Darrel Leonard - Last Filed: 10/22/23 23:56> - General Exam Comments Initial Comments: Visual Physical Exam Vital signs reviewed General: Well-appearing, nontoxic, no acute distress. Head: Normocephalic, atraumatic Eyes: PERRLA, EOMI ENT: Airway patent Chest: Nonlabored breathing Skin: No visual rash, normal skin tone Neuro: Alert and oriented 3 Musculoskeletal: No gross abnormalities (Stefania Swartz) Course <Darrel Leonard - Last Filed: 10/22/23 23:56> Vital Signs 10/13/23 10/14/23 10/14/23 17:23 00:00 08:38 Temperature 98 F Pulse Rate 124 H 99 90 Respiratory 18 18 16 Rate Blood Pressure 135/84 128/88 117/70 O2 Sat by Pulse 98 96 97 Oximetry - Reevaluation(s) Reevaluation #1: 10/13/23 20:35 Neck records reviewed (Darrel Leonard) Reevaluation #2: 10/13/23 20:35 Medically clear for psychiatric evaluation (Darrel Leonard) Medical Decision Making <Stefania Swartz - Last Filed: 10/13/23 17:10> <Darrel Leonard - Last Filed: 10/22/23 23:56> - Medical Decision Making I performed the QuickNote portion of this chart. Signed Stefania Swartz PA-C. (Stefania Swartz) 28 male transferred for inpatient psychiatric evaluation and treatment (Darrel Leonard) - Lab Data Lab Results 10/13/23 10/14/23 Range/Units 18:06 04:52 Urine Opiates Screen Not Detected (NotDetected) Ur Oxycodone Screen Not Detected (NotDetected) Urine Methadone Screen Not Detected (NotDetected) Ur Barbiturates Screen Not Detected (NotDetected) U Tricyclic Antidepress Not Detected (NotDetected) Ur Phencyclidine Scrn Not Detected (NotDetected) Ur Amphetamines Screen Not Detected (NotDetected) U Methamphetamines Scrn Not Detected (NotDetected) U Benzodiazepines Scrn Detected H (NotDetected) Urine Cocaine Screen Not Detected (NotDetected) U Marijuana (THC) Screen Detected H (NotDetected) Influenza Type A (PCR) Not Detected (Not Detectd) Influenza Type B (PCR) Not Detected (Not Detectd) RSV (PCR) Not Detected (Not Detectd) SARS-CoV-2 (PCR) Not Detected (Not Detectd) Disposition <Stefania Swartz - Last Filed: 10/13/23 17:10> Is patient prescribed a controlled substance at d/c from ED?: No <Darrel Leonard - Last Filed: 10/22/23 23:56> Clinical Impression: Drug overdose, intentional, Depression, Schizophrenia, Attempted suicide, Suicidal ideation Disposition: TRANSFER TO PSYCH HOSP/UNIT Condition: Fair Referrals: None,Stated [REFERRING] - 1-2 days
[2023-10-13 17:34] VITALS: TEMP 98
[2023-10-13 18:38] LABS: Amphetamine Screen,Urine Not Detected (NotDetected); Barbiturate Screen,Urine Not Detected (NotDetected); Benzodiazepines Screen,Urine Detected (NotDetected); Cocaine Screen,Urine Not Detected (NotDetected); Methadone Screen, Urine Not Detected (NotDetected); Opiate Screen,Urine Not Detected (NotDetected); Oxycodone Screen, Urine Not Detected (NotDetected); Phencyclidine Screen,Urine Not Detected (NotDetected); Tricyclic Antidepressant,Urine Not Detected (NotDetected); Urn Cannabinoid Scrn Detected (NotDetected)
[2023-10-14 09:11] VITALS: BP 117/70; PULSE 90; RESP 16
== END 2023-10-14 08:40 ==
LOC: EC 16:52
DX: T65.92XA Toxic effect of unspecified substance, intentional self-harm, initial encounter (principal); F32.A Depression, unspecified; F20.9 Schizophrenia, unspecified; R45.851 Suicidal ideations; F12.90 Cannabis use, unspecified, uncomplicated; F15.90 Other stimulant use, unspecified, uncomplicated; Z91.040 Latex allergy status; Z79.899 Other long term (current) drug therapy; Z20.822 Contact with and (suspected) exposure to COVID-19
CPT/HCPCS: 80306; 82075; 87636; 99285

== ENCOUNTER 2024-07-16 21:30 | Inpatient (IN) | payer MEDICARE, MEDICAID ==
--- NOTE | 2024-07-16 21:50 | ED ---
Psych HPI - General Stated Complaint: Psych Time Seen by Provider: 07/16/24 21:34 Source: patient Limitations: no limitations - History of Present Illness Initial Comments: This patient is a 29-year-old man who states he has history of schizophrenia, who is here to have evaluation. When I asked the patient why he is here he states he does not remember. The patient lives with his grandfather and reports that they brought him here. He does not know why. When questioned about symptoms, the patient states that he is feeling "okay." The patient denies having suicidal or homicidal ideation. He is denying hallucinations. Reportedly brings patient here because he has stopped taking his psychiatric medications. MD Complaint: other -: unknown Associated Psychiatric Symptoms: none Improves With: none Worsens With: none Associated Symptoms: denies other symptoms - Related Data Home Medications Medication Instructions Recorded Confirmed Divalproex Sodium [Depakote] 1,500 mg PO DAILY@1000 10/13/23 07/17/24 LORazepam [Ativan] 1 mg PO BID@1000,2200 10/13/23 07/17/24 Paliperidone IM [Invega Sustenna] 234 mg IM Q28D 10/13/23 07/17/24 Allergies Allergy/AdvReac Type Severity Reaction Status Date / Time latex Allergy Rash/Hives Verified 07/17/24 04:20 Review of Systems ROS Statement: Those systems with pertinent positive or pertinent negative responses have been documented in the HPI. ROS Other: All systems not noted in ROS Statement are negative. Constitutional: Denies: fever Respiratory: Denies: cough, dyspnea Cardiovascular: Denies: chest pain, palpitations Gastrointestinal: Denies: abdominal pain, vomiting, diarrhea Genitourinary: Denies: dysuria, hematuria Musculoskeletal: Denies: back pain Skin: Denies: rash Neurological: Denies: headache, weakness Psychiatric: Denies: depression, auditory hallucinations, visual hallucinations, homicidal thoughts, suicidal thoughts Past Medical History Past Medical History: No Reported History History of Any Multi-Drug Resistant Organisms: None Reported Past Surgical History: Orthopedic Surgery Additional Past Surgical History / Comment(s): carpal tunnel Past Psychological History: Depression, Schizophrenia Smoking Status: Current every day smoker, Vaper Past Alcohol Use History: Occasional Past Drug Use History: Heroin, Marijuana, Methamphetamine - Past Family History family Family Medical History: No Reported History General Exam General appearance: alert, in no apparent distress Head exam: Present: atraumatic, normocephalic Eye exam: Present: normal appearance. Absent: scleral icterus, conjunctival injection ENT exam: Present: normal oropharynx Neck exam: Present: normal inspection Respiratory exam: Present: normal lung sounds bilaterally. Absent: respiratory distress, wheezes, rales, rhonchi, stridor, accessory muscle use Cardiovascular Exam: Present: regular rate, normal rhythm, normal heart sounds. Absent: systolic murmur, diastolic murmur, rubs, gallop GI/Abdominal exam: Present: soft. Absent: distended, tenderness, guarding, rebound, rigid, mass Extremities exam: Present: normal inspection, normal capillary refill. Absent: pedal edema, calf tenderness Back exam: Present: normal inspection Neurological exam: Present: alert Psychiatric exam: Absent: agitated, anxious, flat affect, manic, homicidal idea tion, suicidal ideation Skin exam: Present: warm, dry, intact, normal color. Absent: rash Course Vital Signs 07/16/24 21:39 Temperature 97.8 F Pulse Rate 95 Respiratory 18 Rate Blood Pressure 158/74 O2 Sat by Pulse 98 Oximetry Medical Decision Making - Medical Decision Making Was pt. sent in by a medical professional or institution (, PA, CAREER SERVICES COORDINATOR, urgent care, hospital, or halfway...) When possible be specific @ -[No] Did you speak to anyone other than the patient for history (EMS, parent, family, police, friend...)? What history was obtained from this source @ -[No] Did you review nursing and triage notes (agree or disagree)? Why? @ -[I reviewed and agree with nursing and triage notes] Were old charts reviewed (outside hosp., previous admission, EMS record, old EKG, old radiological studies, urgent care reports/EKG's, halfway records)? Report findings @ -[No old charts were reviewed] Differential Diagnosis (chest pain, altered mental status, abdominal pain women, abdominal pain men, vaginal bleeding, weakness, fever, dyspnea, syncope, headache, dizziness, GI bleed, back pain, seizure, CVA, palpatations, mental health, musculoskeletal)? @ -[Differential Mental Health Depression, anxiety, bipolar, psychosis, schizophrenia, borderline personality, situational depression, adjustment disorder, behavioral disorder, brain tumor, malingering, substance abuse, encephalopathy, medication reaction, dementia, hypothyroidism, degenerative neurologic disorder, lupus.... This is not meant to be all-inclusive list EKG interpreted by me (3pts min.). @ -[As above] X-rays interpreted by me (1pt min.). @ -[None done] CT interpreted by me (1pt min.). @ -[None done] U/S interpreted by me (1pt. min.). @ -[None done] What testing was considered but not performed or refused? (CT, X-rays, U/S, labs)? Why? @ -[None] What meds were considered but not given or refused? Why? @ -[None] Did you discuss the management of the patient with other professionals (professionals i.e. , PA, CAREER SERVICES COORDINATOR, lab, RT, psych nurse, child welfare social worker, degree clerk, teacher, antisubmarine weapons officer, case management associate)? Give summary @ -Case discussed with EPS personnel Was smoking cessation discussed for >3mins.? @ -[No] Was critical care preformed (if so, how long)? @ -[No] Were there social determinants of health that impacted care today? How? (Homelessness, low income, unemployed, alcoholism, drug addiction, transportation, low edu. Level, literacy, decrease access to med. care, snf, rehab)? @ -[No] Was there de-escalation of care discussed even if they declined (Discuss DNR or withdrawal of care, Hospice)? DNR status @ -[No] What co-morbidities impacted this encounter? (DM, HTN, Smoking, COPD, CAD, Cancer, CVA, ARF, Chemo, Hep., AIDS, mental health diagnosis, sleep apnea, morbid obesity)? @ -[None] Was patient admitted / discharged? Hospital course, mention meds given and route, prescriptions, significant lab abnormalities, going to OR and other pertinent info. @ -[Patient is a 29-year-old man here to have psychiatric evaluation. After EPS had discussed the case with family and with patient, he will be admitted to have further inpatient psychiatric care Undiagnosed new problem with uncertain prognosis? @ -[No] Drug Therapy requiring intensive monitoring for toxicity (Heparin, Nitro, Insulin, Cardizem)? @ -[No] Were any procedures done? @ -[No] Diagnosis/symptom? @ -[Acute psychosis Acute, or Chronic, or Acute on Chronic? @ -[Acute on chronic Uncomplicated (without systemic symptoms) or Complicated (systemic symptoms)? @ -[Uncomplicated Side effects of treatment? @ -[No] Exacerbation, Progression, or Severe Exacerbation? @ -[No] Poses a threat to life or bodily function? How? (Chest pain, [place], [place], pneumonia, PE, COPD, DKA, ARF, appy, cholecystitis, CVA, Diverticulitis, Homicidal, Suicidal, threat to staff... and all critical care pts) @ -[No] - Lab Data Result diagrams: 07/18/24 10:30 07/18/24 10:30 Lab Results 05/19/24 07/16/24 07/16/24 Range/Units 10:30 21:50 Unknown TSH 0.902 (0.465-4.680) mIU/L Free T4 1.45 (0.78-2.19) ng/dL Urine Color Yellow Urine Appearance Clear (Clear) Urine pH 6.0 (5.0-8.0) Ur Specific [place] 1.030 (1.001-1.035) Urine Protein Trace H (Negative) Urine Glucose (UA) Negative (Negative) Urine Ketones 2+ H (Negative) Urine Blood Trace H (Negative) Urine Nitrite Negative (Negative) Urine Bilirubin Negative (Negative) Urine Urobilinogen 2.0 (<2.0) mg/dL Ur Leukocyte Esterase Negative (Negative) Urine RBC 4 (0-5) /hpf Urine WBC 2 (0-5) /hpf Urine Mucus Few H (None) /hpf Urine Opiates Screen Not Detected (NotDetected) Ur Oxycodone Screen Not Detected (NotDetected) Urine Methadone Screen Not Detected (NotDetected) Ur Barbiturates Screen Not Detected (NotDetected) U Tricyclic Antidepress Not Detected (NotDetected) Ur Phencyclidine Scrn Not Detected (NotDetected) Ur Amphetamines Screen Not Detected (NotDetected) U Methamphetamines Scrn Not Detected (NotDetected) U Benzodiazepines Scrn Detected H (NotDetected) Urine Cocaine Screen Not Detected (NotDetected) U Marijuana (THC) Screen Detected H (NotDetected) Influenza Type A (PCR) (Not Detectd) Influenza Type B (PCR) (Not Detectd) RSV (PCR) (Not Detectd) SARS-CoV-2 (PCR) (Not Detectd) 07/16/24 Range/Units Unknown TSH (0.465-4.680) mIU/L Free T4 (0.78-2.19) ng/dL Urine Color Urine Appearance (Clear) Urine pH (5.0-8.0) Ur Specific [place] (1.001-1.035) Urine Protein (Negative) Urine Glucose (UA) (Negative) Urine Ketones (Negative) Urine Blood (Negative) Urine Nitrite (Negative) Urine Bilirubin (Negative) Urine Urobilinogen (<2.0) mg/dL Ur Leukocyte Esterase (Negative) Urine RBC (0-5) /hpf Urine WBC (0-5) /hpf Urine Mucus (None) /hpf Urine Opiates Screen (NotDetected) Ur Oxycodone Screen (NotDetected) Urine Methadone Screen (NotDetected) Ur Barbiturates Screen (NotDetected) U Tricyclic Antidepress (NotDetected) Ur Phencyclidine Scrn (NotDetected) Ur Amphetamines Screen (NotDetected) U Methamphetamines Scrn (NotDetected) U Benzodiazepines Scrn (NotDetected) Urine Cocaine Screen (NotDetected) U Marijuana (THC) Screen (NotDetected) Influenza Type A (PCR) Not Detected (Not Detectd) Influenza Type B (PCR) Not Detected (Not Detectd) RSV (PCR) Not Detected (Not Detectd) SARS-CoV-2 (PCR) Not Detected (Not Detectd) Disposition Clinical Impression: Psychosis Disposition: ADMITTED IP TO THIS HOSP Condition: Fair Is patient prescribed a controlled substance at d/c from ED?: No
[2024-07-16 22:20] LABS: Appearance,Urine Clear (Clear); Bilirubin,Urine Negative (Negative); Blood,Urine Trace (Negative); Color,Urine Yellow; Glucose,Urine (UA) Negative (Negative); Ketones,Urine 2+ (Negative); Leukocyte Esterase,Urine Negative (Negative); Mucus,Urine Few /hpf; Nitrite,Urine Negative (Negative); Protein,Urine Trace (Negative); RBC,Urine 4 /hpf (0-5); WBC,Urine 2 /hpf (0-5)
[2024-07-16 22:31] LABS: Amphetamine Screen,Urine Not Detected (NotDetected); Barbiturate Screen,Urine Not Detected (NotDetected); Benzodiazepines Screen,Urine Detected (NotDetected); Cocaine Screen,Urine Not Detected (NotDetected); Methadone Screen, Urine Not Detected (NotDetected); Opiate Screen,Urine Not Detected (NotDetected); Oxycodone Screen, Urine Not Detected (NotDetected); Phencyclidine Screen,Urine Not Detected (NotDetected); Tricyclic Antidepressant,Urine Not Detected (NotDetected); Urn Cannabinoid Scrn Detected (NotDetected)
[2024-07-17] MEDS ORDERED: MAGNESIUM HYDROXIDE 2,400 MG/30 ML CUP PO PRN (04:10)
[2024-07-17] MEDS ORDERED: MAG HYDROX/AL HYDROX/SIMETH 355 ML BOTTLE PO PRN (04:10)
[2024-07-17] MEDS ORDERED: ACETAMINOPHEN TAB 325 MG TAB PO PRN (04:10)
[2024-07-17] MEDS ORDERED: IBUPROFEN 600 MG TAB PO PRN (04:10)
[2024-07-17] MEDS: NICOTINE 14MG/24HR PATCH TRANSDERM SCH (09:22)
[2024-07-17] MEDS: DIVALPROEX 500 MG TABLET.DR PO SCH (09:24)
[2024-07-17] MEDS: LORazepam 1 MG TAB PO SCH (09:24)
[2024-07-17] MEDS: risperiDONE 1 MG TAB PO SCH (09:24)
[2024-07-17] MEDS: LORazepam 2 MG/ML INJ IM PRN (15:23)
[2024-07-17] MEDS: HALOPERIDOL LACTATE 5 MG/ML 1 ML VIAL IM PRN (15:23)
--- NOTE | 2024-07-17 16:19 | P.CONS ---
History of Present Illness - Reason for Consult Consult date: 07/17/24 Medical management Requesting physician: Gene Mathews - Chief Complaint Possibly not taking medications - History of Present Illness This is a 29-year-old patient, follows with Dr. Elda Laurent. States his psychiatrist is Dr. Andrews. Has a diagnosis of schizophrenia. Patient not sure why send in the hospital though he says it was done so by his grandparents. Per the ER physician-apparently patient stopped taking his medications. Patient denies any homicidal or suicidal ideation. States his appetite is fair bowel movements are fair. Sleeps well. Patient does vaping. Denies use of any recreational drugs. Tested positive for marijuana. Patient not very forthcoming with answers rather speaking in single words. Review of systems: GEN.: None EYES: None HEENT: None NECK: None RESPIRATORY: None CARDIOVASCULAR: None GASTROINTESTINAL: None GENITOURINARY: None MUSCULOSKELETAL: None LYMPHATICS: None HEMATOLOGICAL: None PSYCHIATRY: Some anxiety depression NEUROLOGICAL: None Social history: Lives with his grandparents. Denies vaping. Apparently has a past history of heroin and marijuana but effective with. Physical examination: VITAL SIGNS: 98.1, 74, 20, 135 presently, 38% room air GENERAL: BMI 24.3, laying in bed. EYES: Pupils equal. Conjunctiva cintia l. HEENT: External appearance of nose and ears normal, oral cavity grossly normal. NECK: JVD not raised; masses not palpable. HEART: First and second heart sounds are normal; no edema. LUNGS: Respiratory rate normal; clear to auscultation. ABDOMEN: Soft, nontender, liver spleen not palpable, no masses palpable. PSYCH: [Alert and oriented x3; mood and affect a bit low l. MUSCULOSKELETAL:No Clubbing/cyanosis;muscles-grossly intact NEUROLOGICAL: Cranial nerves grossly intact; no facial asymmetry, power and sensation grossly intact. LYMPHATICS: No lymph nodes palpable in the axilla and neck INVESTIGATIONS, reviewed in the clinical context: UA showing trace protein ketone 2+ Urine drug screen positive for benzodiazepine marijuana Valproic acid 64.9 Influenza type A, type B, RSV, COVID-19: Not detected Assessment plan: -Schizophrenia Patient is currently on Depakote, Haldol, Risperdal, -Possibly noncompliance with medications This is being monitored by psychiatry. Will adjust his medications -Vaping tobacco Nicotine patch Thank you Dr. Mathews Past Medical History Past Medical History: No Reported History History of Any Multi-Drug Resistant Organisms: None Reported Past Surgical History: Orthopedic Surgery Additional Past Surgical History / Comment(s): carpal tunnel Past Anesthesia/Blood Transfusion Reactions: No Reported Reaction Past Psychological History: Depression, Schizophrenia Smoking Status: Current every day smoker, Vaper Past Alcohol Use History: Occasional Past Drug Use History: Heroin, Marijuana, Methamphetamine - Past Family History family Family Medical History: No Reported History Medications and Allergies Home Medications Medication Instructions Recorded Confirmed Type Divalproex Sodium [Depakote] 1,500 mg PO DAILY@1000 10/13/23 07/17/24 History LORazepam [Ativan] 1 mg PO BID@1000,2200 10/13/23 07/17/24 History Paliperidone IM [Invega Sustenna] 234 mg IM Q28D 10/13/23 07/17/24 History Allergies Allergy/AdvReac Type Severity Reaction Status Date / Time latex Allergy Rash/Hives Verified 07/17/24 04:20 Physical Exam Vitals: Vital Signs Temp Pulse Pulse Resp BP BP Pulse Ox 07/17/24 05:57 98.1 F 74 20 135/70 98 07/16/24 21:39 97.8 F 95 18 158/74 98 Intake and Output 07/17/24 07/17/24 07/17/24 06:59 14:59 22:59 Other: Weight 90.492 kg Results Labs: Abnormal Lab Results - Last 24 Hours (Table) 07/16/24 07/16/24 Range/Units 21:50 Unknown Urine Protein Trace H (Negative) Urine Ketones 2+ H (Negative) Urine Blood Trace H (Negative) Urine Mucus Few H (None) /hpf U Benzodiazepines Scrn Detected H (NotDetected) U Marijuana (THC) Screen Detected H (NotDetected)
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
[2024-07-17] MEDS: traZODone HCL 50 MG TAB PO PRN (21:25)
[2024-07-17] MEDS: PALIPERIDONE 6 MG TAB.ER.24 PO SCH (21:25)
[2024-07-18] MEDS: haloperidoL 5 MG TAB PO PRN (08:48)
[2024-07-18 11:01] LABS: Basophils % (A) 1 %; Eosinophils # (A) 0.1 k/uL (0-0.7); Eosinophils % (A) 1 %; HGB 16.1 gm/dL (13.0-17.5); Lymphocytes # (A) 1.3 k/uL (1.0-4.8); Lymphocytes % (A) 17 %; MCH 31.9 pg (25.0-35.0); MCHC 32.9 g/dL (31.0-37.0); MCV 96.7 fL (80.0-100.0); Mean Platelet Volume 6.6; Monocytes # (A) 0.4 k/uL (0-1.0); Monocytes % (A) 5 %; Neutrophils # (A) 5.7 k/uL (1.3-7.7); Neutrophils % (A) 75 %; Platelet Count 141 k/uL (150-450); RBC 5.07 m/uL (4.30-5.90); RDW 11.8 % (11.5-15.5); WBC 7.6 k/uL (3.8-10.6)
[2024-07-18 11:19] LABS: ALT 13 U/L (4-49); AST 20 U/L (17-59); African American GFR (CKD) 85 (>60 ml/min/1.73 sqM); Albumin 4.5 g/dL (3.5-5.0); Alkaline Phosphatase 43 U/L (38-126); Anion Gap 4 mmol/L; Bilirubin, Delta 0.1 mg/dL (0.0-0.2); Bilirubin,Unconjugated 0.5 mg/dL (0.0-1.1); Blood Urea Nitrogen 20 mg/dL (9-20); Calcium 9.3 mg/dL (8.4-10.2); Carbon Dioxide 24 mmol/L (22-30); Chloride 110 mmol/L (98-107); Glucose 86 mg/dL (74-99); Non-African American GFR(CKD) 73 (>60 ml/min/1.73 sqM); Potassium 4.5 mmol/L (3.5-5.1); Sodium 138 mmol/L (137-145); Total Bilirubin 0.6 mg/dL (0.2-1.3); Total Protein 6.6 g/dL (6.3-8.2)
[2024-07-18] MEDS: LORazepam 1 MG TAB PO PRN (16:39)
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
[2024-07-18 22:58] LABS: Chol/HDL Ratio 4.65 Ratio; LDL Cholesterol,Calculated 95.3 mg/dL (0.0-131.0)
[2024-07-19 04:36] LABS: T4, Free (Free Thyroxine) 1.45 ng/dL (0.78-2.19)
--- NOTE | 2024-07-19 12:37 | P.PN ---
Progress Note - Text Progress Note Date: 07/19/24 Interval History: Patient was seen resting in bed and was directable and agreeable to speak with telegraphic typewriter repairer. He claims that he is upset that his family brought him to the hospital. He states that there was "horseplay" and began speaking nonsensically about the justice system and his rights. He claims that he wants to speak with his stockholder. He was fairly redirectable today, was fairly concrete had a poor insight and judgment into his mental illness. He has been taking medications not reporting any side effects or problems at this time. States that he is mainly keeping himself in his room. Not going to groups. Disheveled appearance, poor hygiene and grooming. At this time patient denies any suicidal or homical ideations, intent or plan. Patient denies any auditory, visual hallucinations and denies any paranoia or delusions MENTAL STATUS EXAM: General Appearance: Patient appears to be stated age is alert, directable, and attempts to cooperate. Patient appears to have poor hygiene and grooming. Disheveled appearance Behavior: Patient is resting in bed without any agitated behavior. Bizarre at times Speech: Patient's speech is fluent and non-pressured. Paucity of speech. Mood/Affect: Patient reports their mood is "ok", affect is congruent and constricted. Suicidality/Homicidality: Patient denies having any homicidal ideation, intent, or plan. Denies any suicidal ideation, intent, or plan Perceptions: Patient denies any visual hallucinations and denies any auditory hallucinations Though content/process: Somewhat disorganized, poor insight. Mild paranoia Memory and concentration: Oriented to person and place and time Judgment and insight: Chronically poor Assessment: Schizophrenia Nicotine dependence non adherence to medication regimen PLAN: -Patient is admitted under involuntary status to [facility] for stabilization of psychiatric symptoms and safety. Patient has not signed adult voluntary form or medication consent A second certification was completed and along with petition will be filed for court. -Medications : - invega Po 3 mg bid for psychosis. will need to transition patient back onto TRAMMELL prior to discharge - Continue Depakote 1500 mg daily - decrease Lorazepam 0.5 mg BID with plan to taper off - trazodone 50 mg qhs for insomnia -Ativan and Haldol PRN for agitation/aggression -NRT -nicotine patch -SW on board for discharge planning. Encourage patient to participate in groups to work on coping skills. Will await deferral and court date.
[2024-07-19] MEDS: PALIPERIDONE 3 MG TAB.ER.24 PO SCH (12:47)
[2024-07-19] MEDS: LORazepam 0.5 MG TAB PO SCH (21:18)
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
[2024-07-20] MEDS: DIVALPROEX 500 MG TABLET.DR PO SCH ×2 (12:22→21:06)
[2024-07-20] MEDS: PALIPERIDONE 6 MG TAB.ER.24 PO SCH (21:06)
[2024-07-21] MEDS: PALIPERIDONE 3 MG TAB.ER.24 PO SCH ×2 (08:21→21:01)
[2024-07-21] MEDS: DIVALPROEX 500 MG TABLET.DR PO SCH (08:21)
--- NOTE | 2024-07-21 12:00 | P.PN ---
Progress Note - Text Progress Note Date: 07/21/24 Interval History: Patient was seen resting in bed and was directable and agreeable to speak with database report writer. Patient remains on a one-to-one sitter this morning. He was laying in bed, fairly concrete. Not reporting any overnight problems. States that he slept fairly has been eating. Not going to any groups. He has been taking his medications, received as needed Haldol this morning. Not reporting any side effects. Not endorsing delusions or paranoia today. poor hygiene and grooming, was encouraged to shower today. At this time patient denies any suicidal or homical ideations, intent or plan. Patient denies any auditory, visual hallucinations and denies any paranoia or delusions MENTAL STATUS EXAM: General Appearance: Patient appears to be stated age is alert, directable, and attempts to cooperate. Patient appears to have poor hygiene and grooming. Disheveled appearance Behavior: Patient is resting in bed without any agitated behavior. Bizarre at times, improving mildly Speech: Patient's speech is fluent and non-pressured. Paucity of speech. Mood/Affect: Patient reports their mood is "fine", affect is congruent and constricted. Suicidality/Homicidality: Patient denies having any homicidal ideation, intent, or plan. Denies any suicidal ideation, intent, or plan Perceptions: Patient denies any visual hallucinations and denies any auditory hallucinations Though content/process: Somewhat disorganized, poor insight. Memory and concentration: Oriented to person and place and time Judgment and insight: Chronically poor, improving mildly Assessment: Schizophrenia Nicotine dependence non adherence to medication regimen PLAN: -Patient is admitted under involuntary status to [facility] for stabilization of psychiatric symptoms and safety. Patient has not signed adult voluntary form or medication consent A second certification was completed and along with petition will be filed for court. -Medications : - increase invega Po 3 mg daily + 9 mg for psychosis. will need to transition patient back onto TRAMMELL prior to discharge, likely give loading dose tomorrow if patient is tolerating medications well - Depakote 500 mg + 1500 mg qhs - trazodone 50 mg qhs for insomnia -Ativan and Haldol PRN for agitation/aggression -NRT -nicotine patch -SW on board for discharge planning. Encourage patient to participate in groups to work on coping skills. Patient is currently on a active court order which expires on 08/30/2024. Patient will be need to transition onto long-acting injection prior to discharge, [facility] looking into care home placement for patient.
[2024-07-21] MEDS ORDERED: HALOPERIDOL LACTATE 5 MG/ML 1 ML VIAL IM PRN (14:20)
[2024-07-21] MEDS: haloperidoL 5 MG TAB PO PRN (18:37)
[2024-07-21] MEDS: NICOTINE 14MG/24HR PATCH TRANSDERM PRN (18:53)
--- NOTE | 2024-07-21 19:07 | P.PN ---
Progress Note - Text Progress Note Date: 07/21/24 Went to see this patient for follow-up (thyroid results. I was informed by the nurse that patient is being rather uncooperative. Has not been taking his medications. Awaiting further court intervention. It would not be safe for me to see the patient right now. Hence I did not see the patient today.
[2024-07-21] MEDS: LITHIUM CARBONATE ER 450 MG TABLET.ER PO SCH (21:00)
--- NOTE | 2024-07-22 10:57 | P.PN ---
Progress Note - Text Progress Note Date: 07/22/24 Interval History: Patient was seen wandering the hallways agreeable to speak to technical report writer today in the lounge. Patient continues to have a disheveled appearance, poor eye contact, he was fairly cooperative today with technical report writer during conversation. He denied any overnight complaints, states that he has been sleeping well. States that he is been taking his medications not reporting any side effects at this time. He continues to have very poor insight poor judgment. States that he has been speaking with his family and claims that "they just want me to get help". Nurses report that patient continues to be fairly delusional and impulsive. poor hygiene and grooming, was encouraged to shower today. At this time patient denies any suicidal or homical ideations, intent or plan. Patient denies any auditory, visual hallucinations and denies any paranoia or delusions. He continues to be fairly unpredictable. MENTAL STATUS EXAM: General Appearance: Patient appears to be stated age is alert, directable, and attempts to cooperate. Patient appears to have poor hygiene and grooming. Disheveled appearance Behavior: Patient is resting in bed without any agitated behavior. Bizarre at times Speech: Patient's speech is fluent and non-pressured. Paucity of speech. Mood/Affect: Patient reports their mood is "ok", affect is congruent and constricted. Suicidality/Homicidality: Patient denies having any homicidal ideation, intent, or plan. Denies any suicidal ideation, intent, or plan Perceptions: Patient denies any visual hallucinations and denies any auditory hallucinations Though content/process: Somewhat disorganized, poor insight. Memory and concentration: Oriented to person and place and time Judgment and insight: Chronically poor, improving mildly Assessment: Schizophrenia Nicotine dependence non adherence to medication regimen PLAN: -Patient is admitted under involuntary status to MHU for stabilization of psychiatric symptoms and safety. Patient has not signed adult voluntary form or medication consent A second certification was completed and along with petition will be filed for court. -Medications : - cross titrate invega and replace with prolixin 5 mg BID for psychosis. will need to transition patient back onto TRAMMELL prior to discharge - Depakote 500 mg + 1500 mg qhs -lithobid 450 mg qhs for mood stabilization - trazodone 50 mg qhs for insomnia -Ativan and Haldol PRN for agitation/aggression -NRT -nicotine patch - on board for discharge planning. Encourage patient to participate in groups to work on coping skills. Patient is currently on a active court order which expires on 08/30/2024. Patient will be need to transition onto long-acting injection prior to discharge, [facility] looking into longterm placement for patient.
[2024-07-22] MEDS: PALIPERIDONE 3 MG TAB.ER.24 PO SCH (21:33)
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
[2024-07-23] MEDS: traZODone HCL 100 MG TAB PO PRN (20:03)
--- NOTE | 2024-07-24 15:01 | P.PN ---
Progress Note - Text Progress Note Date: 07/24/24 Interval history: Patient was seen bedside and was directable and agreeable to speak with video game script writer. He states that his mood is "pretty good ". He reports sleeping well and tolerating the medications well. He endorses good appetite and energy. He denies all other concerns. At this time patient denies any suicidal or homicidal ideations intent or plan. Denies any Auditory or visual hallucinations. Patient denies any side effects from the medications and has been compliant with meds. Mental status exam: General Appearance: Patient appears to be stated age is alert, directable, and attempts to cooperate. Patient appears to have improving mildly hygiene and grooming. Disheveled appearance Behavior: Patient is resting in bed without any agitated behavior. poor eye contact, asocial Speech: Patient's speech is fluent and non-pressured. Poverty of speech. Mood/Affect: Patient reports their mood is "pretty good", affect is congruent and constricted. Suicidality/Homicidality: Patient denies having any homicidal ideation, intent, or plan. Denies any suicidal ideation, intent, or plan Perceptions: Patient denies any visual hallucinations and denies any auditory hallucinations Though content/process: concrete Memory and concentration: Oriented to person and place and time Judgment and insight: Chronically poor, improving mildly Assessment/Plan: Continue with current diagnosis. Patient continues to meet criteria for inpatient psychiatric admission for symptom stabilization and safety. Patient will be maintained on current psychotropic medication regimen. Monitor for medication compliance and for any psychotropic medication side effects. Will continue to monitor ongoing response to treatment. Encouraged participation in milieu.
--- NOTE | 2024-07-25 13:32 | P.PN ---
Progress Note - Text Progress Note Date: 07/25/24 Interval history: Patient was seen bedside and was directable and agreeable to speak with automobile and property underwriter. He states that his mood is "good ". He reports sleeping well and tolerating the medications well. He endorses good appetite and energy. He denies all other concerns. At this time patient denies any suicidal or homicidal ideations intent or plan. Denies any Auditory or visual hallucinations. Patient denies any side effects from the medications and has been compliant with meds. Mental status exam: General Appearance: Patient appears to be stated age is alert, directable, and attempts to cooperate. Patient appears to have improving mildly hygiene and grooming. Disheveled appearance Behavior: Patient is resting in bed without any agitated behavior. poor eye contact, asocial Speech: Patient's speech is fluent and non-pressured. Poverty of speech. Mood/Affect: Patient reports their mood is "good", affect is congruent and constricted. Suicidality/Homicidality: Patient denies having any homicidal ideation, intent, or plan. Denies any suicidal ideation, intent, or plan Perceptions: Patient denies any visual hallucinations and denies any auditory hallucinations Though content/process: concrete Memory and concentration: Oriented to person and place and time Judgment and insight: Chronically poor, improving mildly Assessment/Plan: Continue with current diagnosis. Patient continues to meet criteria for inpatient psychiatric admission for symptom stabilization and safety. Patient will be maintained on current psychotropic medication regimen. Monitor for medication compliance and for any psychotropic medication side effects. Will continue to monitor ongoing response to treatment. Encouraged participation in milieu.
--- NOTE | 2024-07-26 11:42 | P.PN ---
Progress Note - Text Progress Note Date: 07/26/24 Interval History: Patient was seen laying in his bed today. Patient states that he is doing chaya rly well. He continues to have a fairly disheveled appearance, poor eye contact. He was fairly cooperative and calm with conventional mortgage underwriter today. Not endorsing any paranoia or delusions. More organized in his speech, continues to be fairly concrete paucity of thought. Answers questions appropriately. Has been taking his medications not reporting any side effects. He slept well overnight, states that he showered yesterday. Did not go to groups this morning. He has a fair appetite at this time. At this time patient denies any suicidal or homical ideations, intent or plan. Patient denies any auditory, visual hallucinations and denies any paranoia or delusions. More directable today MENTAL STATUS EXAM: General Appearance: Patient appears to be stated age is alert, directable, and attempts to cooperate. Patient appears to have improving mildly hygiene and grooming. Disheveled appearance Behavior: Patient is resting in bed without any agitated behavior. Poor eye contact Speech: Patient's speech is fluent and non-pressured. Paucity of speech. Mood/Affect: Patient reports their mood is "ok", affect is congruent and constricted. Suicidality/Homicidality: Patient denies having any homicidal ideation, intent, or plan. Denies any suicidal ideation, intent, or plan Perceptions: Patient denies any visual hallucinations and denies any auditory hallucinations Though content/process: more organized, concrete, poor insight. Not endorsing any delusions today. Memory and concentration: Oriented to person and place and time Judgment and insight: Chronically poor, improving mildly Assessment: Schizophrenia Nicotine dependence non adherence to medication regimen PLAN: -Patient is admitted under involuntary status to MHU for stabilization of psychiatric symptoms and safety. Patient has not signed adult voluntary form or medication consent -Medications : - prolixin 5 mg TID for psychosis. consider increasing if needed. will need to transition patient back onto TRAMMELL prior to discharge - Depakote 500 mg + 1500 mg qhs - lithobid 450 mg qhs for mood stabilization, last lith level 0.6 on 07/25 - trazodone 50 mg qhs prn for insomnia -Ativan and Haldol PRN for agitation/aggression -NRT -nicotine patch - on board for discharge planning. Encourage patient to participate in groups to work on coping skills. Patient did not defer with his business banking officer and will have his court hearing on Jul 28. Patient will be need to transition onto long- acting injection prior to discharge, [facility] looking into longterm placement for patient.
--- NOTE | 2024-07-27 11:37 | P.PN ---
Progress Note - Text Progress Note Date: 07/27/24 Interval History: Patient was seen laying in his bed today. Patient was awoken by television script writer. He c laims that he is doing okay today, continues to be fairly concrete. Continues to have a disheveled appearance. He was fairly pleasant today with television script writer. He was noted to be walking around in circles yesterday and took off his shirt and went back to his room. He has not had any agitation or violence at this time. Patient states that he is doing fairly well. Not endorsing any paranoia or delusions. More organized in his speech, continues to be fairly concrete paucity of thought. Answers questions appropriately. Has been taking his medications not reporting any side effects. He slept well overnight. Not been going to groups. He has a fair appetite at this time. At this time patient denies any suicidal or homical ideations, intent or plan. Patient denies any auditory, visual hallucinations and denies any paranoia or delusions. More directable today MENTAL STATUS EXAM: General Appearance: Patient appears to be stated age is alert, directable, and attempts to cooperate. Patient appears to have improving mildly hygiene and grooming. Disheveled appearance Behavior: Patient is resting in bed without any agitated behavior. Poor eye contact, improving mildly Speech: Patient's speech is fluent and non-pressured. Paucity of speech. Mood/Affect: Patient reports their mood is "fine", affect is congruent and constricted. Suicidality/Homicidality: Patient denies having any homicidal ideation, intent, or plan. Denies any suicidal ideation, intent, or plan Perceptions: Patient denies any visual hallucinations and denies any auditory hallucinations Though content/process: more organized, concrete, poor insight. Not endorsing any delusions today. Memory and concentration: Oriented to person and place and time Judgment and insight: Chronically poor, improving mildly Assessment: Schizophrenia Nicotine dependence non adherence to medication regimen PLAN: -Patient is admitted under involuntary status to MHU for stabilization of psychiatric symptoms and safety. Patient has not signed adult voluntary form or medication consent -Medications : - increase prolixin 6 mg TID for psychosis. consider increasing if needed. will need to transition patient back onto TRAMMELL tomorrow morning. - Depakote 500 mg + 1500 mg qhs - lithobid 450 mg qhs for mood stabilization, last lith level 0.6 on 07/25 - trazodone qhs prn for insomnia -Ativan and Haldol PRN for agitation/aggression -NRT -nicotine patch - on board for discharge planning. Encourage patient to participate in groups to work on coping skills. Patient did not defer with his commercial litigation attorney and will have his court hearing on Jul 28. Patient will be need to transition onto long- acting injection prior to discharge, [facility] looking into senior living placement for patient.
--- NOTE | 2024-07-28 11:54 | P.PN ---
Progress Note - Text Progress Note Date: 07/28/24 Interval History: Patient was seen today agreeable to speak to senior technical writer. Patient was waiting to [employer] hearing today. Patient states that he is doing fairly well, continues to have fairly poor eye contact, hygiene and grooming improving. More organized in his speech, continues to be fairly concrete paucity of thought. Answers questions appropriately. Has been taking his medications not reporting any side effects. He slept well overnight. Not been going to groups. He has a fair appetite at this time. We spoke again about the long-acting injection he was agreeable to take that today. At this time patient denies any suicidal or homical ideations, intent or plan. Patient denies any auditory, visual hallucinations and denies any paranoia or delusions. More directable today MENTAL STATUS EXAM: General Appearance: Patient appears to be stated age is alert, directable, and attempts to cooperate. Patient appears to have improving mildly hygiene and grooming Behavior: Patient is resting in bed without any agitated behavior. Poor eye contact, improving mildly Speech: Patient's speech is fluent and non-pressured. Paucity of speech. Improving mildly Mood/Affect: Patient reports their mood is "ok", affect is congruent and constricted. Improving mildly Suicidality/Homicidality: Patient denies having any homicidal ideation, intent, or plan. Denies any suicidal ideation, intent, or plan Perceptions: Patient denies any visual hallucinations and denies any auditory hallucinations Though content/process: more organized, concrete, poor insight. Not endorsing any delusions today. Memory and concentration: Oriented to person and place and time Judgment and insight: Chronically poor, improving mildly Assessment: Schizophrenia Nicotine dependence non adherence to medication regimen PLAN: -Patient is admitted under involuntary status to MHU for stabilization of psychiatric symptoms and safety. Patient has not signed adult voluntary form or medication consent -Medications : - decreasing prolixin PO with plan to taper off. patient to recieve Prolixin D IM 50 mg IM today, next dose due on 08/06 - Depakote 500 mg + 1500 mg qhs - lithobid 450 mg qhs for mood stabilization, last lith level 0.6 on 07/25 - trazodone qhs prn for insomnia -Ativan and Haldol PRN for agitation/aggression -NRT -nicotine patch - on board for discharge planning. Encourage patient to participate in groups to work on coping skills. Patient did not defer with his title attorney and will have his court hearing on Jul 28. Patient will be need to transition onto long- acting injection prior to discharge, [facility] looking into custodial placement for patient. [facility] either tomorrow friday or friday when approved.
[2024-07-28] MEDS: fluPHENAZine DECANOATE 25 MG/ML 5ML MDV IM SCH (13:49)
[2024-07-29 09:07] VITALS: BP 120/81; PULSE 71; RESP 20; TEMP 97.8
--- NOTE | 2024-07-29 11:08 | P.PN ---
Progress Note - Text Progress Note Date: 07/29/24 Interval History: Patient was seen today agreeable to speak to designer/writer. Patient was seen laying in his bed. States that he is doing fairly well. Not endorsing any complaints at this time or side effects. States that he slept fairly last night. He received the long-acting injection yesterday. Mariah appropriately. Has been taking his medications not reporting any side effects. He slept well overnight. He has a fair appetite at this time. At this time patient denies any suicidal or ho mical ideations, intent or plan. Patient denies any auditory, visual hallucinations and denies any paranoia or delusions. MENTAL STATUS EXAM: General Appearance: Patient appears to be stated age is alert, directable, and attempts to cooperate. Patient appears to have improving mildly hygiene and grooming Behavior: Patient is resting in bed without any agitated behavior. Poor eye contact, improving mildly Speech: Patient's speech is fluent and non-pressured. Paucity of speech. Improving mildly Mood/Affect: Patient reports their mood is "fine", affect is congruent and constricted. Improving mildly Suicidality/Homicidality: Patient denies having any homicidal ideation, intent, or plan. Denies any suicidal ideation, intent, or plan Perceptions: Patient denies any visual hallucinations and denies any auditory hallucinations Though content/process: more organized, concrete, poor insight. Not endorsing any delusions today. Alpha Memory and concentration: Oriented to person and place and time Judgment and insight: Chronically poor, improving mildly Assessment: Schizophrenia Nicotine dependence non adherence to medication regimen PLAN: -Patient is admitted under involuntary status to MHU for stabilization of psychiatric symptoms and safety. Patient has not signed adult voluntary form or medication consent -Medications : - decreasing prolixin PO with plan to taper off. patient to recieved Prolixin D IM 50 mg IM 07/28, next dose due [id number] on 08/06 - Depakote 500 mg + 1500 mg qhs - lithobid 450 mg qhs for mood stabilization, last lith level 0.6 on 07/25 - trazodone qhs prn for insomnia -Ativan and Haldol PRN for agitation/aggression -NRT -nicotine patch - on board for discharge planning. Encourage patient to participate in groups to work on coping skills. Patient consented to a mental health treatment order on 07/28. Patient will be need to transition onto long-acting injection prior to discharge. patient accepted to [facility] tomorrow friday
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
== END 2024-07-30 12:38 | disposition home or self-care (01) | DRG 885 ==
LOC: EC 21:30 → 3MHU 07-17 04:00
PROVIDERS: ADMIT Psychiatry & Neurology Psychiatry; ATTEND Psychiatry & Neurology Psychiatry
DX: F20.9 Schizophrenia, unspecified (principal); F17.200 Nicotine dependence, unspecified, uncomplicated; F32.A Depression, unspecified; F12.10 Cannabis abuse, uncomplicated; F41.9 Anxiety disorder, unspecified; G47.00 Insomnia, unspecified; Z91.148 Patient's other noncompliance with medication regimen for other reason; Z91.040 Latex allergy status; Z91.128 Patient's intentional underdosing of medication regimen for other reason; Z56.0 Unemployment, unspecified; Z79.899 Other long term (current) drug therapy; Z91.199 Patient's noncompliance with other medical treatment and regimen due to unspecified reason
CPT/HCPCS: 80053; 80061; 80164; 80306; 81001; 82075; 82248; 83036; 84439; 84443; 85025; 87636; 99285

== ENCOUNTER 2024-08-31 16:08 | Emergency (ER) | payer MEDICARE, OTHER ==
[2024-08-31 16:22] VITALS: BP 145/83; PULSE 104; RESP 16; TEMP 98.5
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
== END 2024-08-31 19:20 | disposition home or self-care (01) ==
LOC: EC 16:08
DX: F99 Mental disorder, not otherwise specified (principal); F17.290 Nicotine dependence, other tobacco product, uncomplicated; Z91.040 Latex allergy status
CPT/HCPCS: 82075; 99284

== ENCOUNTER 2024-10-12 17:36 | Emergency (ER) | payer MEDICARE, OTHER ==
[2024-10-12 17:48] VITALS: BP 144/81; PULSE 130; RESP 20; TEMP 98.3
--- NOTE | 2024-10-12 18:18 | ED ---
Psych HPI - General Source: patient, RN notes reviewed, Caregiver Mode of arrival: ambulatory Limitations: no limitations <Ortega Toledo - Last Filed: 10/12/24 18:16> - General Source: patient, RN notes reviewed, Caregiver Mode of arrival: ambulatory Limitations: no limitations <Brando Delgadillo - Last Filed: 10/13/24 01:06> - General Chief Complaint: Psychiatric Symptoms Stated Complaint: mental health Time Seen by Provider: 10/12/24 17:52 - History of Present Illness Initial Comments: Quick note: This is a 29-year-old male with history of substance abuse presenting with caregiver for erratic behavior starting at 1700 this evening. Caregiver states patient was behaving abnormally, with subsequent search her room revealing vitals of alcohol and [id number] pills that he was prohibit ed to have. Caregiver states intermediate is concerned for patient safety and wellbeing. Patient denies SI/HI. (Ortega Toledo) 49-year-old male presents emergency department from intermediate for psych evaluation. They state that there is some concerns of his behavior and that they found him with [id number] medications primarily cold medications what she has a history of abuse of drugs denies ingesting denies medications. Denies any suicidal Watt ideation denies any alcohol abuse. (Brando Delgadillo) - Related Data Previous Rx's Medication Instructions Recorded Divalproex [Depakote] 1,500 mg PO HS 30 Days #90 tab 07/30/24 Divalproex [Depakote] 500 mg PO DAILY #30 tab 07/30/24 Munson Carbonate ER [Lithobid] 450 mg PO HS 30 Days #30 tab 07/30/24 Nicotine 14Mg/24Hr Patch [Habitrol] 1 patch TRANSDERM DAILY PRN 14 07/30/24 Days #14 patch fluPHENAZine decanoate [Prolixin 50 mg IM Q10D #1 ml 07/30/24 Decanoate] traZODone HCL [Desyrel] 100 mg PO HS PRN 30 Days #30 tab 07/30/24 Allergies Allergy/AdvReac Type Severity Reaction Status Date / Time latex Allergy Rash/Hives Verified 08/31/24 16:22 Review of Systems ROS Other: All systems not noted in ROS Statement are negative. <Ortega Toledo - Last Filed: 10/12/24 18:16> ROS Other: All systems not noted in ROS Statement are negative. <Brando Delgadillo - Last Filed: 10/13/24 01:06> ROS Statement: Those systems with pertinent positive or pertinent negative responses have been documented in the HPI. Past Medical History Past Medical History: No Reported History History of Any Multi-Drug Resistant Organisms: None Reported Past Surgical History: Orthopedic Surgery Additional Past Surgical History / Comment(s): carpal tunnel Past Anesthesia/Blood Transfusion Reactions: No Reported Reaction Past Psychological History: Depression, Schizophrenia Smoking Status: Current every day smoker, Vaper Past Alcohol Use History: Occasional Past Drug Use History: Heroin, Marijuana, Methamphetamine - Past Family History family Family Medical History: No Reported History <Ortega Toledo - Last Filed: 10/12/24 18:16> General Exam <Ortega Toledo - Last Filed: 10/12/24 18:16> Limitations: no limitations General appearance: alert, in no apparent distress Head exam: Present: atraumatic, normocephalic, normal inspection Eye exam: Present: normal appearance, PERRL, EOMI. Absent: scleral icterus, conjunctival injection, periorbital swelling ENT exam: Present: normal exam, normal oropharynx, mucous membranes moist Neck exam: Present: normal inspection, full ROM. Absent: tenderness, meningismus, lymphadenopathy Respiratory exam: Present: normal lung sounds bilaterally. Absent: respiratory distress, wheezes, rales, rhonchi, stridor Cardiovascular Exam: Present: regular rate, normal rhythm, normal heart sounds. Absent: systolic murmur, diastolic murmur, rubs, gallop, clicks Neurological exam: Present: alert, oriented X3, CN II-XII intact Skin exam: Present: warm, dry, intact, normal color. Absent: rash <Brando Delgadillo - Last Filed: 10/13/24 01:06> - General Exam Comments Initial Comments: Visual Physical Exam Vital signs reviewed General: Well-appearing, nontoxic, no acute distress. Patient appears anxious Head: Normocephalic, atraumatic Eyes: PERRLA, EOMI ENT: Airway patent Chest: Nonlabored breathing Skin: No visual rash, normal skin tone Neuro: Alert and oriented 3 Musculoskeletal: No gross abnormalities (Ortega Toledo) Course Vital Signs 10/12/24 17:45 Temperature 98.3 F Pulse Rate 130 H Respiratory 20 Rate Blood Pressure 144/81 O2 Sat by Pulse 96 Oximetry Medical Decision Making <Ortega Toledo - Last Filed: 10/12/24 18:16> <Brando Delgadillo - Last Filed: 10/13/24 01:06> - Medical Decision Making I completed the quick note portion of this chart signed RUPERTO Gr (Ortega Toledo) Was pt. sent in by a medical professional or institution (AISHA Shepard, DIRECTOR GLOBAL DEVELOPMENT, urgent care, hospital, or [facility]...) When possible be specific @ -No Did you speak to anyone other than the patient for history (EMS, parent, family, police, friend...)? What history was obtained from this source @ -Caregiver providing past medical history and current complaint Did you review nursing and triage notes (agree or disagree)? Why? @ -I reviewed and agree with nursing and triage notes Were old charts reviewed (outside hosp., previous admission, EMS record, old EKG, old radiological studies, urgent care reports/EKG's, [facility] records)? Report findings @ -No old charts were reviewed Differential Diagnosis (chest pain, altered mental status, abdominal pain women, abdominal pain men, vaginal bleeding, weakness, fever, dyspnea, syncope, headache, dizziness, GI bleed, back pain, seizure, CVA, palpatations, mental health, musculoskeletal)? @ -Differential Mental Health Depression, anxiety, bipolar, psychosis, schizophrenia, borderline personality, situational depression, adjustment disorder, behavioral disorder, brain tumor, malingering, substance abuse, encephalopathy, medication reaction, dementia, hypothyroidism, degenerative neurologic disorder, lupus.... This is not meant to be all-inclusive list EKG interpreted by me (3pts min.). @ -None X-rays interpreted by me (1pt min.). @ -None done CT interpreted by me (1pt min.). @ -None done U/S interpreted by me (1pt. min.). @ -None done What testing was considered but not performed or refused? (CT, X-rays, U/S, labs)? Why? @ -None What meds were considered but not given or refused? Why? @ -None Did you discuss the management of the patient with other professionals (professionals i.e. Dr., PA, DIRECTOR GLOBAL DEVELOPMENT, lab, RT, psych nurse, social services counselor, lehr tender, teacher, community reinvestment act officer, case aide)? Give summary @ -EPS who evaluated the patient recommended outpatient treatment Was smoking cessation discussed for >3mins.? @ -No Was critical care preformed (if so, how long)? @ -No Were there social determinants of health that impacted care today? How? (Homelessness, low income, unemployed, alcoholism, drug addiction, transportation, low edu. Level, literacy, decrease access to med. care, alf, rehab)? @ -No Was there de-escalation of care discussed even if they declined (Discuss DNR or withdrawal of care, Hospice)? DNR status @ -No What co-morbidities impacted this encounter? (DM, HTN, Smoking, COPD, CAD, Cancer, CVA, ARF, Chemo, Hep., AIDS, mental health diagnosis, sleep apnea, morbid obesity)? @ -None Was patient admitted / discharged? Hospital course, mention meds given and route, prescriptions, significant lab abnormalities, going to OR and other pertinent info. @ -[Discharge patient is not suicidal homicidal discharged after evaluation by EPS recommended outpatient treatment Undiagnosed new problem with uncertain prognosis? @ -No Drug Therapy requiring intensive monitoring for toxicity (Heparin, Nitro, Insulin, Cardizem)? @ -No Were any procedures done? @ -No Diagnosis/symptom? @ -Mood disorder Acute, or Chronic, or Acute on Chronic? @ -Acute Uncomplicated (without systemic symptoms) or Complicated (systemic symptoms)? @ -Uncomplicated Side effects of treatment? @ -No Exacerbation, Progression, or Severe Exacerbation? @ -No Poses a threat to life or bodily function? How? (Chest pain, USA, NC, pneumonia, PE, COPD, DKA, ARF, appy, cholecystitis, CVA, Diverticulitis, Homicidal, Suicidal, threat to staff... and all critical care pts) @ -No (Brando Delgadillo) Disposition <Ortega Toledo - Last Filed: 10/12/24 18:16> Is patient prescribed a controlled substance at d/c from ED?: No Time of Disposition: 01:06 <Brando Delgadillo - Last Filed: 10/13/24 01:06> Clinical Impression: Mood disorder Disposition: HOME SELF-CARE Condition: Stable Additional Instructions: Please return to the Emergency Department if symptoms worsen or any other concerns. Referrals: Elda Laurent MD [Primary Care Provider] - 1-2 days
== END 2024-10-13 01:33 | disposition home or self-care (01) ==
LOC: EC 17:36
DX: F39 Unspecified mood [affective] disorder (principal); F17.290 Nicotine dependence, other tobacco product, uncomplicated
CPT/HCPCS: 82075; 99284